=== PATIENT | female | born 1955 | race Caucasian/White ===

== ENCOUNTER → 2016-11-05 | Outpatient (CLI) | payer OTHER ==
[~2016-11-05] MED LIST: ASPI1TAB4 PO; COEN1CAP PO; GLUC500C67 PO; IBUP-103 PO; PARO1TAB27 PO; SIMV20TA2 PO; VSC/5 PO
== END | disposition home or self-care (01) ==
LOC: C.RDSM 11-04 11:45
PROVIDERS: ATTEND Physical Medicine & Rehabilitation Sports Medicine
DX: S42.231D 3-part fracture of surgical neck of right humerus, subsequent encounter for fracture with routine healing (principal); X58.XXXD Exposure to other specified factors, subsequent encounter

== ENCOUNTER → 2016-11-17 | Outpatient (CLI) | payer OTHER | END | disposition home or self-care (01) | LOC: C.RDSM 15:33 | PROVIDERS: ATTEND Physical Medicine & Rehabilitation Sports Medicine | DX: M25.562 Pain in left knee (principal) ==

== ENCOUNTER → 2017-01-01 | Outpatient (CLI) | payer OTHER ==
[2017-01-01 17:35] LABS: BASO % 0.5 %; BASO ABS # 0.02 K/uL (0-0.2); COMPLETE YES; EOS % 2.9 %; HEMATOCRIT 41.8 % (37-47); IG% 0.3 %; LYMPH % 47.1 %; LYMPH ABS # 1.79 K/uL (1.2-3.4); MEAN CELL VOLUME 88.9 fL (80-100); MEAN CORPUSCULAR HGB CONC 33.7 g/dl (32-36); MONO % 9.2 %; PLATELET COUNT 285 K/uL (130-400)
[2017-01-02 05:53] LABS: ESTIMATED AVERAGE GLUCOSE 128 mg/dl; HA1C FLAG Normal (Normal)
== END | disposition home or self-care (01) ==
LOC: C.LABBFT 11:33
PROVIDERS: ATTEND Internal Medicine
DX: D72.819 Decreased white blood cell count, unspecified (principal); R73.01 Impaired fasting glucose

== ENCOUNTER → 2017-02-24 | Outpatient (CLI) | payer OTHER | END | disposition home or self-care (01) | LOC: C.PAPS 13:59 | PROVIDERS: ATTEND Obstetrics & Gynecology | DX: Z01.419 Encounter for gynecological examination (general) (routine) without abnormal findings (principal) ==

== ENCOUNTER → 2017-04-23 | Outpatient (CLI) | payer OTHER ==
--- NOTE | 2017-04-23 20:16 | DIAGNOSTIC IMAGING REPORT ---
LEFT HUMERUS 2 VIEWS CLINICAL HISTORY: Fall with left arm pain. FINDINGS: AP and lateral views of the left humerus are obtained. No prior studies are available for comparison at the time of dictation. The skeletal structures are osteopenic. No left humeral fracture is identified. The shoulder and elbow joints are grossly maintained. Productive degenerative change is seen at the acromioclavicular joint. The overlying soft tissues are within normal limits. The partially imaged left lung parenchyma appears clear. IMPRESSION: There is no radiographic evidence of left humeral fracture. Electronically signed by: Isaac Jo M.D. 04/23/2017 8:14 PM Dictated Date/Time: 04/23/2017 8:13 PM
== END | disposition home or self-care (01) ==
LOC: C.RAD 19:56
PROVIDERS: ATTEND Physician Assistant Medical
DX: M79.602 Pain in left arm (principal); Z91.81 History of falling

== ENCOUNTER → 2017-05-13 | Outpatient (CLI) | payer OTHER ==
[2017-05-13 12:53] LABS: CHOLESTEROL/HDL RATIO 2.6
== END | disposition home or self-care (01) ==
LOC: C.LABBFT 08:50
PROVIDERS: ATTEND Internal Medicine
DX: E78.00 Pure hypercholesterolemia, unspecified (principal)

== ENCOUNTER → 2017-07-09 | Outpatient (CLI) | payer OTHER ==
[2017-07-09 12:42] LABS: URINE APPEARANCE CLEAR (CLEAR); URINE BILIRUBIN NEG (NEG); URINE COLOR YELLOW; URINE EPITHELIAL CELL AUTO >30 /lpf (0-5); URINE NITRITE NEG (NEG); UROBILINOGEN NEG (NEG); ZZUR CULT IF INDIC CLEAN CATCH NO
[2017-07-09 12:47] LABS: MANUAL MICROSCOPIC REQUIRED? NO; REVIEW REQ? NO
[2017-07-09 12:50] LABS: ESTIMATED AVERAGE GLUCOSE 128 mg/dl; HA1C FLAG Normal (Normal)
[2017-07-09 13:00] LABS: BLOOD UREA NITROGEN 20 mg/dl (7-18); BUN/CREATININE RATIO 23.5 (10-20); CALCIUM 9.1 mg/dl (8.5-10.1); CARBON DIOXIDE 25 mmol/L (21-32); CHLORIDE 109 mmol/L (98-107); CREATININE 0.86 mg/dl (0.60-1.20); GLUCOSE 96 mg/dl (70-99); POTASSIUM 3.7 mmol/L (3.5-5.1); SODIUM 141 mmol/L (136-145)
[2017-07-09 13:11] LABS: ALB/GLOB RATIO 1.3 (0.9-2); ALKALINE PHOSPHATASE 65 U/L (45-117); ALT/SGPT 24 U/L (12-78); AST/SGOT 19 U/L (15-37)
[2017-07-09 15:19] LABS: BASO % 0.5 %; BASO ABS # 0.02 K/uL (0-0.2); COMPLETE YES; EOS % 2.6 %; HEMATOCRIT 42.4 % (37-47); IG% 0.2 %; LYMPH % 37.1 %; MEAN CORPUSCULAR HEMOGLOBIN 29.5 pg (25-34); MEAN CORPUSCULAR HGB CONC 32.8 g/dl (32-36); MONO % 9.5 %; NEUT % 50.1 %; PLATELET COUNT 291 K/uL (130-400); RED BLOOD COUNT 4.71 M/uL (4.2-5.4); WHITE BLOOD COUNT 4.31 K/uL (4.8-10.8)
== END | disposition home or self-care (01) ==
LOC: C.LABBFT 09:37
PROVIDERS: ATTEND Internal Medicine
DX: R73.01 Impaired fasting glucose (principal); R53.83 Other fatigue; E78.00 Pure hypercholesterolemia, unspecified

== ENCOUNTER → 2017-09-11 | Outpatient (CLI) | payer OTHER ==
--- NOTE | 2017-09-11 15:38 | MAMMOGRAPHY REPORT ---
BILATERAL DIGITAL SCREENING MAMMOGRAM TOMOSYNTHESIS WITH CAD: 09/11/2017 TECHNIQUE: Breast tomosynthesis in addition to standard 2D mammography was performed. Current study was also evaluated with a Computer Aided Detection (CAD) system. COMPARISON: Comparison is made to exams dated: 09/10/2016 mammogram, 08/30/2015 mammogram, 08/29/2014 mammogram, 08/24/2013 mammogram, 11/30/2012 ultrasound, and 11/30/2012 mammogram - [facility]. BREAST COMPOSITION: The tissue of both breasts is almost entirely fatty. FINDINGS: No suspicious masses, calcifications, or areas of architectural distortion are noted in ei ther breast. There has been no significant interval change compared to prior exams. Scattered bilater al benign-appearing calcifications are not significantly changed. IMPRESSION: ACR BI-RADS CATEGORY 2: BENIGN There is no mammographic evidence of malignancy. A 1 year screening mammogram is recommended. The pa tient will receive written notification of the results. Approximately 10% of breast cancers are not detected with mammography. A negative mammographic report should not delay biopsy if a clinically suggestive mass is present. Genny Dash M.D. ah/:09/11/2017 12:20:40 Jewelry Dipper: Noni AUSTIN(Robi)(M), [facility] letter sent: Normal 1/2 BI-RADS Code: ACR BI-RADS Category 2: Benign
== END | disposition home or self-care (01) ==
LOC: C.MAMM 11:13
PROVIDERS: ATTEND Internal Medicine
DX: Z12.31 Encounter for screening mammogram for malignant neoplasm of breast (principal)

== ENCOUNTER → 2017-12-15 | Outpatient (CLI) | payer OTHER ==
--- NOTE | 2017-12-15 17:34 | DIAGNOSTIC IMAGING REPORT ---
R WRIST MIN 3 VIEWS ROUTINE CLINICAL HISTORY: 62 years-old Female presenting with W19.XXXA [id number] Wrist pain, rightright wrist injury. S/P fa. TECHNIQUE: Frontal, oblique, and lateral views of the right wrist were obtained. COMPARISON: None. FINDINGS: Nondisplaced fracture of the radial styloid, which is intra-articular and disrupts the radiocarpal articulation with the scaphoid. No other fracture. No malalignment. IMPRESSION: Nondisplaced intra-articular fracture of the radial styloid. This is presumably acute based on the history and absence of prior exams. Electronically signed by: Wolf Watts M.D. 12/15/2017 5:32 PM Dictated Date/Time: 12/15/2017 5:30 PM
== END | disposition home or self-care (01) ==
LOC: C.RAD 17:14
PROVIDERS: ATTEND Physician Assistant Medical
DX: M25.531 Pain in right wrist (principal); W19.XXXA Unspecified fall, initial encounter

== ENCOUNTER → 2018-01-11 | Outpatient (CLI) | payer OTHER ==
[2018-01-11 12:28] LABS: BASO % 0.5 %; BASO ABS # 0.02 K/uL (0-0.2); EOS % 2.5 %; HEMATOCRIT 38.7 % (37-47); HEMOGLOBIN 12.8 g/dL (12.0-16.0); IG# 0.01 K/uL (0.00-0.02); LYMPH ABS # 1.71 K/uL (1.2-3.4); MEAN CELL VOLUME 90.6 fL (80-100); MEAN CORPUSCULAR HGB CONC 33.1 g/dl (32-36); MEAN PLATELET VOLUME 9.6 fL (7.4-10.4); MONO % 8.1 %; MONO ABS # 0.33 K/uL (0.11-0.59); NEUT % 46.7 %; PLATELET COUNT 286 K/uL (130-400); RED CELL DISTRIBUTION WIDTH CV 13.4 % (11.5-14.5); RED CELL DISTRIBUTION WIDTH SD 44.3 fL (36.4-46.3); WHITE BLOOD COUNT 4.07 K/uL (4.8-10.8)
[2018-01-11 13:16] LABS: HEMOGLOBIN A1C 6.3 % (4.5-5.6)
== END | disposition home or self-care (01) ==
LOC: C.LABBFT 09:24
PROVIDERS: ATTEND Internal Medicine
DX: R73.01 Impaired fasting glucose (principal); E78.00 Pure hypercholesterolemia, unspecified; D72.819 Decreased white blood cell count, unspecified

== ENCOUNTER 2019-02-25 10:19 | Inpatient (IN) ==
--- NOTE | 2019-01-25 16:08 | PAT Medication Instructions ---
Medication Instructions Date of Service January 25, 2019 Home Medications Medication Instructions Recorded ondansetron 4 mg PO Q6H PRN #12 tab 12/07/18 aspirin-caffeine 500 mg-32.5 mg 1 tab PO DAILY PRN coenzyme Q10 30 mg capsule 30 mg PO BID simvastatin 40 mg tablet 40 mg PO QPM metformin 500 mg tablet 1,000 mg PO BID losartan 50 mg PO QAM meloxicam 15 mg PO QAM omeprazole 20 mg PO QAM ondansetron 4 mg PO Q6H PRN Probiotic 1 dose PO QAM Vitamin D3 1 cap PO QAM multivitamin 1 tab PO BID tolterodine 4 mg PO QPM glucosamine-chondroitin 1 tab PO BID ASK your surgeon for instructions aspirin-caffeine 500 mg-32.5 mg 1 tab PO DAILY PRN meloxicam 15 mg PO QAM STOP taking 2 weeks before surgery (or as soon as possible if surgery is within 2 weeks) coenzyme Q10 30 mg capsule 30 mg PO BID glucosamine-chondroitin 1 tab PO BID DO NOT take the morning of surgery metformin 500 mg tablet 1,000 mg PO BID losartan 50 mg PO QAM Probiotic 1 dose PO QAM Vitamin D3 1 cap PO QAM multivitamin 1 tab PO BID Take morning of surgery With a small sip of water, OTHERWISE NOTHING TO EAT OR DRINK AFTER MIDNIGHT: omeprazole 20 mg PO QAM ondansetron 4 mg PO Q6H PRN (if needed) Take evening before surgery simvastatin 40 mg tablet 40 mg PO QPM metformin 500 mg tablet 1,000 mg PO BID ondansetron 4 mg PO Q6H PRN (if needed) multivitamin 1 tab PO BID tolterodine 4 mg PO QPM Other Notes If you have any questions please call us at [phone] or [phone] or [phone] or [phone]
--- NOTE | 2019-01-26 10:22 | Anesthesiology Consultation ---
Date of Service January 26, 2019 Assessment & Plan (1) Encounter for pre-operative examination: - Check BSG AM DOS Chart Review Chart Review: Acceptable Risk for Surgery and Patient seen in Pre Admission Testing Teaching & Discussion Pre-Anesthesia Teaching/Discussion Notes: Instructed NPO after midnight before surgery,except medications with 15 cc of water. Medication instructions provided according to the PAT guidelines. History Surgery Operation Date: 02/25/19 10:00 Proposed Procedures p Left Total Knee Arthroplasty - Kunal Henderson DO Height/Weight Height: 5 ft 1 in Weight: 88.5 kg Allergies Allergy/AdvReac Type Severity Reaction Status Date / Time amoxicillin AdvReac Mild YEAST Verified 01/20/19 13:26 INFECTION Medications Home Medications Medication Instructions Recorded Confirmed Last Taken aspirin-caffeine 500 mg-32.5 mg 1 tab PO DAILY PRN tab 08/13/18 01/20/19 12/25/18 tablet coenzyme Q10 30 mg capsule 30 mg PO BID 08/13/18 01/20/19 12/28/18 simvastatin 40 mg tablet 40 mg PO QPM 08/13/18 01/20/19 12/28/18 metformin 500 mg tablet 1,000 mg PO BID 08/16/18 01/20/19 12/28/18 losartan 50 mg PO QAM 12/07/18 01/20/19 Unknown meloxicam 15 mg PO QAM 12/07/18 01/20/19 12/28/18 omeprazole 20 mg PO QAM 12/07/18 01/20/19 12/29/18 ondansetron 4 mg PO Q6H PRN #12 tab 12/07/18 01/20/19 12/17/18 Probiotic 1 dose PO QAM 12/16/18 01/20/19 12/28/18 Vitamin D3 1 cap PO QAM 12/16/18 01/20/19 12/28/18 multivitamin 1 tab PO BID 12/16/18 01/20/19 12/28/18 tolterodine 4 mg PO QPM 12/16/18 01/20/19 12/28/18 glucosamine-chondroitin 1 tab PO BID 01/20/19 01/20/19 Unknown Past Medical History Medical History History of hepatitis C DIAGNOSED 2006; S/P TREATMENT X 1 YEAR- REPEAT TESTING HAS UNDETECTABLE VIRAL LOAD Depressive disorder Dyslipidemia GERD (gastroesophageal reflux disease) CONTROLLED Diabetes PREDIABETES- ON METFORMIN Hearing deficit B/L HEARING AIDS History of anxiety Hypertension Obesity Osteoarthritis Spinal stenosis Past Family History Family History Mother Family history of diabetes mellitus Past Surgical History Surgical History History of tonsillectomy History of bilateral oophorectomy History of hysteroscopy History of dilatation and curettage H/O carpal tunnel repair BL History of bilateral tubal ligation History of colonoscopy History of esophagogastroduodenoscopy (EGD) 12/29/18= MAC sedation at [facility] History of tooth extraction Past Anesthesia History No Hx of Anesthesia Complications (EXCEPT POST OP NAUSEA) and No Family Hx of Anesthesia Complications History of PONV Yes Motion Sickness Screening History of Motion Sickness: No Social History Smoking Status: Former smoker Do You Dip or Chew Tobacco: No Smoking End Date: QUIT 15+ YEARS AGO Hx Alcohol Use: No Hx Substance Use: No substance use type: does not use Exercise / Class Metabolic Activity III < 4 Walking/Shop/Light housework Review of Systems Patient denies chest pain, shortness of breath, cough, wheezing, palpitations. Physical Exam Vital Signs VITALS BP 152/83 P 90 TEMP 98.1 SP02 98%RA RESP 18 PHYSICAL Full neck and c-spine range of motion. Full TMJ range of motion. TMD 3 finger breaths Mallampati Score 3 Dentition: missing molars Lungs: clear throughout to auscultation Cardiac: occasional extra beat, regular rate and rhythm, no murmurs noted Spine: normal Carotid arteries: negative bruit Extremities: no edema Small oral opening Testing Electrocardiogram Date: 01/26/19 SR with PSVC's at 83bpm. Chest X-Ray Date: 01/26/19 Findings: + NAD Laboratory Results 01/26/19 10:39 01/26/19 10:39 Blood Type O Positive 01/26/19 10:39 Antibody Screen NEGATIVE 01/26/19 10:39 PT 9.8 Seconds (9.0-12.0) 01/26/19 10:39 INR 1.0 (0.9-1.1) 01/26/19 10:39 APTT 29.2 Seconds (21.0-31.0) 01/26/19 10:39 07/14/18 HGBA1C 6.3%
--- NOTE | 2019-01-26 11:08 | XRay Report ---
XR chest Pre-admission PA/Lat CLINICAL HISTORY: Preoperative evaluation. COMPARISON STUDY: Chest radiograph and chest CT September 04, [id number]. FINDINGS: Lung volumes are normal. There is no pneumothorax or pleural effusion. There is no consolid ation or evidence for pulmonary edema. Cardiomediastinal silhouette is unremarkable. IMPRESSION: No acute cardiopulmonary findings. Electronically signed by: Man Lorenzo M.D. 01/26/2019 11:07 AM
[2019-01-26 12:32] LABS: Basophils # (auto) 0.02 K/uL (0-0.2); Basophils % (auto) 0.5 %; Eosinophils # (auto) 0.06 K/uL (0-0.5); Eosinophils % (auto) 1.5 %; Hematocrit (blood only) 38.4 % (37-47); Immature Granulocytes # (auto) 0.01 K/uL (0.00-0.02); Immature Granulocytes % (auto) 0.2 %; Lymphocytes # (auto) 1.46 K/uL (1.2-3.4); Lymphocytes % (auto) 35.4 %; Mean Corpuscular Hgb Conc 33.9 g/dL (32-36); Mean Corpuscular Volume 88.7 fL (80-100); Mean Platelet Volume 9.9 fL (7.4-10.4); Monocytes # (auto) 0.29 K/uL (0.11-0.59); Neutrophils # (auto) 2.28 K/uL (1.4-6.5); Neutrophils % (auto) 55.4 %; Platelet Count 276 K/uL (130-400); RDW Coefficient of Variation 12.8 % (11.5-14.5); RDW Standard Deviation 41.2 fL (36.4-46.3); Red Blood Count 4.33 M/uL (4.2-5.4); White Blood Count 4.12 K/uL (4.8-10.8)
[2019-01-26 12:47] LABS: Partial Thromboplastin Ratio 1.1; Partial Thromboplastin Time 29.2 Seconds (21.0-31.0); Prothrombin Time 9.8 Seconds (9.0-12.0)
[2019-01-26 12:48] LABS: BUN Creatinine Ratio 37.9 (10-20); Calcium 9.1 mg/dl (8.5-10.1); Creatinine Clr Calc Pharmacy 76.7 ml/min; Est GFR (African American) 98.5; Potassium 4.1 mmol/L (3.5-5.1)
--- NOTE | 2019-02-24 21:14 | History & Physical Report ---
Date of Service February 24, 2019 Assessment & Plan (1) Osteoarthritis of left knee: Is with a left total knee arthroplasty. Postoperatively she will be started on aspirin for DVT prophylaxis. She will be kept overnight in the hospital for postop medical management. She plans to use energy physical therapy upon discharge. Present on Admission?: Yes History of Present Illness Chief Complaint: Primary osteoarthritis of the left knee Primary Care Provider: Víctor Macias MD Isabel is a pleasant 63-year-old female who is been dealing with chronic increasing left knee pain. X-rays and clinical examination were diagnostic for primary osteoarthritis of the left knee. After failing conservative treatment, she elected to proceed with a left total knee arthroplasty Allergies Allergy/AdvReac Type Severity Reaction Status Date / Time amoxicillin AdvReac Mild YEAST Verified 01/20/19 13:26 INFECTION Home Medications Home Medications Medication Instructions Recorded Confirmed Type aspirin-caffeine 500 mg-32.5 mg 1 tab PO DAILY PRN tab 08/13/18 01/20/19 History tablet coenzyme Q10 30 mg capsule 30 mg PO BID 08/13/18 01/20/19 History simvastatin 40 mg tablet 40 mg PO QPM 08/13/18 01/20/19 History metformin 500 mg tablet 1,000 mg PO BID 08/16/18 01/20/19 History losartan 50 mg PO QAM 12/07/18 01/20/19 History meloxicam 15 mg PO QAM 12/07/18 01/20/19 History omeprazole 20 mg PO QAM 12/07/18 01/20/19 History ondansetron 4 mg PO Q6H PRN #12 tab 12/07/18 01/20/19 Rx Probiotic 1 dose PO QAM 12/16/18 01/20/19 History Vitamin D3 1 cap PO QAM 12/16/18 01/20/19 History multivitamin 1 tab PO BID 12/16/18 01/20/19 History tolterodine 4 mg PO QPM 12/16/18 01/20/19 History glucosamine-chondroitin 1 tab PO BID 01/20/19 01/20/19 History Past Med/Surg History Medical History History of hepatitis C DIAGNOSED 2006; S/P TREATMENT X 1 YEAR- REPEAT TESTING HAS UNDETECTABLE VIRAL LOAD Depressive disorder Dyslipidemia GERD (gastroesophageal reflux disease) CONTROLLED Diabetes PREDIABETES- ON METFORMIN Hearing deficit B/L HEARING AIDS History of anxiety Hypertension Obesity Osteoarthritis Spinal stenosis Surgical History History of tonsillectomy History of bilateral oophorectomy History of hysteroscopy History of dilatation and curettage H/O carpal tunnel repair BL History of bilateral tubal ligation History of colonoscopy History of esophagogastroduodenoscopy (EGD) 12/29/18= MAC sedation at [facility] History of tooth extraction Family History Mother Family history of diabetes mellitus Social History Preferred Language: Spanish Communication Ability: Effective Beliefs That Will Affect Care: None Current Living Situation: Spouse Current Living Situation Comment: DAUGHTER LIVES WITH PT Feels Safe at Home: Yes Smoking Status: Former smoker Second Hand Exposure: Yes (MANY YEARS AGO) Hx Alcohol Use: No Hx Substance Use: No Review of Systems All systems reviewed & are unremarkable except as noted in HPI & below Physical Exam Constitutional: WD/WN, vitals as above Eyes: PERRL, conjunctivae normal, anicteric sclerae ENMT: external ear and nose normal, oropharynx normal Neck: trachea midline, no thyromegaly Respiratory: normal respiratory effort Cardiovascular: RRR, no murmur, no edema Gastrointestinal (Abdomen): normal bowel sounds, soft, nontender, no hepatosplenomegaly Musculoskeletal: On physical examination of the left knee there is a trace effusion. There is near full range of motion and no evidence of instability. There is significant tenderness palpation along the medial and lateral joint lines and over the distal femoral condyles. Psychiatric: A+Ox3, euthymic affect Results & Data Diagnostic Findings Radiographs of the left knee demonstrate advanced osteoarthritis with joint space narrowing osteophyte formation and [id number]-[id number] articulation.
[~2019-02-25 10:19] MED LIST changes: +ACETAMINOPHEN 500 MG TAB PO SCH; -ASPI1TAB4 PO; +BUPIVACAINE 0.5 % 5 MG/1 ML PF 10ML VIAL ONE; +CEFAZOLIN 2000MG 2,000 MG/15 ML SYR IV SCH; -COEN1CAP PO; +FAMOTIDINE 20 MG TAB PO SCH; +GABAPENTIN 300 MG PO SCH; -GLUC500C67 PO; -IBUP-103 PO; +LR 500ML BOLUS, THEN 15ML/HR IV SCH; +LR 60ML/HR IV SCH; -PARO1TAB27 PO; +ROPIVACAINE 0.5% 5 MG/ML 30 ML VIAL ONE; +ROPIVACAINE 0.5% HCL/PF 150 MG, BUPIVACAINE 0.5% MPF 30 ML, EPINEPHrine 30MG/30ML (OR U... INFIL SCH; -SIMV20TA2 PO; +TRANEXAMIC ACID 1,000 MG **IV Intra-op IV SCH; +TRANEXAMIC ACID 1,000 MG **IV Pre-op IV SCH; -VSC/5 PO
[2019-02-25] MEDS ORDERED: fentaNYL citrate 100 MCG/2 ML VIAL ONE (11:29)
[2019-02-25] MEDS ORDERED: MIDAZOLAM HCL 1 MG/ML 2ML VIAL ONE (11:29)
--- NOTE | 2019-02-25 12:42 | History & Physical Bridge Note ---
Date of Service February 25, 2019 History & Physical Bridge Note I have examined the patient, reviewed the History & Physical and in the interval since the performance of the History & Physical I have noted the following changes of clinical significance: no changes noted
[2019-02-25] MEDS ORDERED: ePHEDrine sulfate 50 MG/ML AMP IV PRN (13:10)
[2019-02-25] MEDS ORDERED: ATROPINE SULFATE 0.1 MG/ML 10ML SYR IV PRN (13:10)
[2019-02-25] MEDS ORDERED: ONDANSETRON INJ 2 MG/ML 2 ML VIAL IV PRN ×2 (13:10→17:29)
[2019-02-25] MEDS ORDERED: fentaNYL citrate 100 MCG/2 ML VIAL IV PRN (13:10)
[2019-02-25] MEDS ORDERED: ORTHO JOINT ANESTHETIC ONE (13:25)
[2019-02-25] MEDS ORDERED: POVIDONE-IODINE OP SOLN 30 ML BTL ONE (13:25)
[2019-02-25] MEDS ORDERED: BACITRACIN INJ 50,000 UNIT VIAL ONE (14:21)
[2019-02-25] MEDS ORDERED: LIDOCAINE HCL 2% 2 ML VIAL/AMP(20MG/ML) INFIL ONE (14:49)
[2019-02-25] MEDS ORDERED: PROPOFOL IV EMULSION 10 MG/ML 20 ML VIAL IV ONE (14:49)
--- NOTE | 2019-02-25 15:58 | Operative Report ---
Post Operative Report Pre & Post Diagnosis Operation Date: 02/25/19 13:00 Pre-Op Diagnosis: Left Knee Degenerative Joint Disease Post-Op Diagnosis: Left Knee Degenerative Joint Disease Procedure Operation Date: 02/25/19 13:00 Actual Procedures p Left Total Knee Arthroplasty(Left) - Kunal Henderson DO Surgeon Kunal Henderson DO Leather Goods Assembler Kunal Sierra PAC Estimated Blood Loss 10 Findings Consistent with Post-Op Diagnosis Specimens Left femoral and tibial bone Complications none Disposition Disposition: Recovery Room Indications Isabel is a pleasant 63-year-old female who is been dealing with chronic increasing left knee pain. X-rays and clinical examination were diagnostic for primary osteoarthritis of the left knee. After failing conservative treatment, she elected to proceed with a left total knee arthroplasty. Description of Procedure Implants used: I used a [employer] Vanguard total knee arthroplasty system with a size 65 femur, 67 tibia, 31 patella, and a size 10 PS polyethylene bearing. All components were cemented in place with Palacos G cement. The patient arrived [facility] for the above procedure. There were seen in the preoperative holding area and the operative extremity was identified and signed. There were given a preoperative antibiotic, a spinal anesthetic and an adductor nerve block. There were taken back to the operating room and laid on the table in supine position. There were given basic sedation. The operative knee was then prepped and draped in sterile fashion. A timeout was done, and the patient and the operative extremity was properly identified. A midline incision was made directly over the patella. Dissection was taken down to the extensor mechanism. A subvastus arthrotomy was used. The medial retinaculum was released and the fat pad was mostly left intact. The knee was flexed and the ACL, PCL, and meniscus were removed. A drill was sent down the center of the femoral canal followed by an intramedullary yris. Off that yris a distal femoral cutting block was placed. 9 mm was resected off the distal femur at 5 of valgus. A posterior referencing AP sizing guide was then placed on the distal femur. The femur measured to be a size 65. 2 drill holes were placed in 3 of external rotation. A 4-in-1 cutting block was then impacted into place. Anterior posterior and chamfer cuts were then made. The posterior stabilizing box guide was then impacted into place and the box was resected for the posterior stabilizing component. The proximal tibia was then exposed. A drill was sent down the center of the tibial canal followed by an intramedullary yris. Off that yris a proximal tibial resection guide was placed. The proximal tibia was then resected. The tibia measured to be a size 67. The tibial plate was then placed in the appropriate rotation and the tibia was punched. The posterior aspect of the knee was then opened up and any additional meniscus fragments and osteophytes were removed. Trial components were then placed. I used a size 10 PS polyethylene insert. The knee was brought through a full range of motion and felt to be stable. The patella was then everted and 8 mm was resected off the posterior aspect of the patella. The patella measured to be a size 31. 3 peg holes were then drilled. A trial patella was placed. The knee was once again brought through a full range of motion and felt to be stable. Trial components were then removed. The surrounding soft tissues were injected with 100 cc of an orthopedic pain control cocktail. All components were then cemented into place with Palacos G cement. The final polyethylene insert was then snapped into place and the anterior bar was locked. Once cement was dry the tourniquet was deflated. Hemostasis was obtained. A dilute betadyne lavage was then done for 3 minutes. The joint was then irrigated with normal saline solution. The subvastus arthrotomy was then closed with #1 Vicryl suture. The skin was closed with 2-0 Vicryl, 3-0V lock suture, and memo. A soft compressive dressing was placed. The patient was then transferred to a hospital bed and taken to the postanesthesia care unit in stable condition. They tolerated the procedure well. I attest to the content of the Intraoperative Record and any orders documented therein. Any exceptions are noted below.
--- NOTE | 2019-02-25 16:50 | XRay Report ---
XR knee LT 2V routine CLINICAL HISTORY: Surgical Post Op postoperative evaluation COMPARISON: None. DISCUSSION: Anatomic alignment post total left knee arthroplasty. Good contact between prosthetic and underlying bone. Expected postoperative soft tissue change IMPRESSION: Anatomic alignment post total left knee arthroplasty. The above report was generated using voice recognition software. It may contain grammatical, syntax or spelling errors. Electronically signed by: Dez Pantoja M.D. 02/25/2019 4:49 PM
--- NOTE | 2019-02-25 17:21 | Anesthesiology Progress Note ---
Date of Service February 25, 2019 Anesthesia Post Procedure Vital Signs Vital Signs: Temp Pulse Pulse Resp BP Pulse Ox 02/25/19 17:10 36.6 C 73 16 125/67 96 02/25/19 17:00 73 16 133/54 L 96 02/25/19 16:50 75 16 118/62 99 02/25/19 16:40 36.5 C 77 16 120/55 L 99 02/25/19 16:30 36.5 C 79 16 113/57 L 99 02/25/19 16:21 36.5 C 87 16 131/76 99 02/25/19 10:44 36.9 C 82 18 161/78 H 98 Pain Intensity Left Knee: Pain Intensity: 4 Notes Mental Status: alert / awake / arousable Patient Amnestic to Procedure: Yes Nausea / Vomiting: adequately controlled Pain: adequately controlled Airway Patency, RR, SpO2: stable & adequate BP & HR: stable & adequate Hydration State: stable & adequate Neuraxial Anesthesia: was administered and sensory block is resolving Anesthetic Complications: no major complications apparent
[2019-02-25] MEDS ORDERED: ONDANSETRON 4 MG OD TAB PO PRN (17:29)
[2019-02-25] MEDS ORDERED: BISACODYL 10 MG SUPP PR PRN (17:29)
[2019-02-25] MEDS ORDERED: MAGNESIUM HYDROXIDE SUSP 30 ML UDC PO PRN (17:29)
[2019-02-25] MEDS ORDERED: SODIUM CHLORIDE 0.9% 1000ML 1,000 ML IV SCH (17:29)
[2019-02-25] MEDS ORDERED: HYDROmorphone INJ 0.5 MG/0.5 ML SYR IV PRN (17:29)
[2019-02-25] MEDS ORDERED: METOCLOPRAMIDE HCL INJ 5 MG/ML 2 ML VIAL IV PRN (17:29)
[2019-02-25] MEDS ORDERED: NALOXONE HCL 0.4 MG/1 ML VIAL/CARP IV PRN (17:29)
[2019-02-25] MEDS ORDERED: PHARMACY GLYCEMIC MGMT CONSULT PRN (17:53)
[2019-02-25] MEDS: KETOROLAC TROMETHAMINE 15 MG/ML VIAL IV SCH (19:05)
[2019-02-25] MEDS: OXYCODONE HCL IR 5 MG TAB (IMMEDIATE RELEASE) PO PRN (20:30)
[2019-02-25] MEDS ORDERED: METFORMIN HCL 500 MG TAB PO SCH (21:00)
[2019-02-25] MEDS ORDERED: COENZYME Q10 30 MG PO SCH (21:00)
[2019-02-25] MEDS: TOLTERODINE TARTRATE LA 4 MG CAPCR PO SCH (21:33)
[2019-02-25] MEDS: ASPIRIN 81 MG ECTAB PO SCH (21:33)
[2019-02-25] MEDS: SIMVASTATIN 40 MG TAB PO SCH (21:33)
[2019-02-25] MEDS: SENNA 8.6 MG TAB PO SCH (21:33)
[2019-02-25] MEDS: DOCUSATE SODIUM 100 MG CAP PO SCH (21:35)
[2019-02-25] MEDS: INSULIN ASPART 100 UNITS/ML 3 ML PEN SC SCH (21:36)
[2019-02-25] MEDS: CEFAZOLIN 2000MG 2,000 MG/15 ML SYR IV SCH (22:05)
[2019-02-25] MEDS: ACETAMINOPHEN 500 MG TAB PO SCH (22:06)
[2019-02-26] MEDS: KETOROLAC TROMETHAMINE 15 MG/ML VIAL IV SCH ×5 (00:25→23:02)
[2019-02-26] MEDS: CEFAZOLIN 2000MG 2,000 MG/15 ML SYR IV SCH (06:14)
[2019-02-26] MEDS: ACETAMINOPHEN 500 MG TAB PO SCH ×3 (06:14→21:10)
[2019-02-26 06:17] LABS: Hemoglobin 10.5 g/dL (12.0-16.0); Mean Corpuscular Hgb Conc 32.8 g/dL (32-36); Mean Corpuscular Volume 87.4 fL (80-100); Mean Platelet Volume 9.6 fL (7.4-10.4); Platelet Count 231 K/uL (130-400); RDW Coefficient of Variation 13.2 % (11.5-14.5); RDW Standard Deviation 42.3 fL (36.4-46.3); Red Blood Count 3.66 M/uL (4.2-5.4); White Blood Count 7.82 K/uL (4.8-10.8)
[2019-02-26 06:48] LABS: BUN Creatinine Ratio 19.2 (10-20); Calcium 8.3 mg/dl (8.5-10.1); Creatinine Clr Calc Pharmacy 58.4 ml/min; Est GFR (African American) 69.3; Est GFR (Non-African American) 59.8; Potassium 4.3 mmol/L (3.5-5.1)
--- NOTE | 2019-02-26 08:35 | Orthopedic Progress Note ---
Date of Service February 26, 2019 Assessment & Plan (1) Osteoarthritis of left knee: Overall she is doing very well. She is not having much pain in the left knee. She is already been up and ambulating to the bathroom. She is on aspirin for DVT prophylaxis. She will be seen by physical therapy today for ambulation. We will make sure her pain is well controlled. I plan to discharge her to home tomorrow morning. Present on Admission?: Yes Suzi Hall was seen and examined at bedside this morning. Overall she is doing very well. She is not having much pain in the left knee. She is happy with her pro shirin so far and has no complaints. Physical Exam Musculoskeletal: On physical examination of the left knee, the dressing is clean and dry. Her leg lengths are equal. She is active dorsi flexion and plantarflexion of her left ankle. She is already able to easily do a straight leg raise. Results & Data Vital Signs (Past 12 Hours) Vital Signs Temp Pulse Resp BP Pulse Ox 02/26/19 07:51 36.5 C 88 16 125/76 94 02/26/19 03:55 36.6 C 96 H 18 125/78 96 02/25/19 22:50 36.6 C 87 16 128/74 95 02/25/19 21:14 36.4 C L 72 17 150/96 H 96 Laboratory Results H & H 01/26/19 02/26/19 Range/Units 10:39 05:30 Hgb 13.0 10.5 L (12.0-16.0) g/dL Hct 38.4 32.0 L (37-47) % Coagulation 01/26/19 Range/Units 10:39 INR 1.0 (0.9-1.1) Diagnostic Findings Postoperative x-rays of the left knee show the prosthesis to be in anatomic alignment without any evidence of fracture, dislocation, or loosening.
[2019-02-26] MEDS: PANTOprazole 40 MG TAB PO SCH (08:45)
[2019-02-26] MEDS: LOSARTAN POTASSIUM 50 MG TAB PO SCH (08:45)
[2019-02-26] MEDS: MULTIVITAMIN TAB PO SCH (08:45)
[2019-02-26] MEDS: ASPIRIN 81 MG ECTAB PO SCH ×2 (08:45→20:48)
[2019-02-26] MEDS: INSULIN ASPART 100 UNITS/ML 3 ML PEN SC SCH ×4 (08:46→20:49)
[2019-02-26] MEDS: DOCUSATE SODIUM 100 MG CAP PO SCH ×2 (08:51→20:48)
[2019-02-26] MEDS: OXYCODONE HCL IR 5 MG TAB (IMMEDIATE RELEASE) PO PRN ×3 (08:51→21:06)
[2019-02-26] MEDS ORDERED: PNEUMOCOCCAL ADMINISTRATION CHARGE ONE (13:00)
[2019-02-26] MEDS ORDERED: PNEUMOCOCCAL POLYSACCHARIDES 25 MCG/0.5 ML VIAL/SYR IM ONE (13:00)
--- NOTE | 2019-02-26 13:32 | Pharmacy Report ---
Pharmacy Glycemic Short Note 2 - Date of Service February 26, 2019 - Glycemic Short BSG Results (Last 24 hours): 02/25/19 02/25/19 02/25/19 16:24 17:40 20:27 Glucose POC Glucose 88 88 116 H 02/26/19 02/26/19 02/26/19 05:30 08:13 12:01 Glucose 127 H POC Glucose 124 H 119 H OUTPATIENT ANTIDIABETIC REGIMEN: * metformin 1000 mg PO BID * A1c 6.3% 01/27/19 ASSESSMENT: * Isabel is a 63 yr old T2DM female POD #1 s/p TKA * She was started on Novolog ACHS with correction factor and carb ratio last evening. * She has required minimal insulin thus far (only 3 units of novolog) and no basal insulin. * Since patient is tolerating an oral diet and scr is at baseline, I will resume home dose of metformin this evening. I will also discontinue carb coverage. PLAN FOR INPATIENT GLYCEMIC CONTROL: * Resume metformin 1000 mg PO BID with meals * Basal insulin * none * Bolus insulin * NovoLog per scale ACHS or Q6hrs while NPO * Goal Range: Low 110 mg/dL - High 140 mg/dL * Correction Factor: 25 mg/dL/unit PLAN FOR DISCHARGE: * A1c at goal. Continue home regimen of metformin on discharge.
[2019-02-26] MEDS: METFORMIN HCL 500 MG TAB PO SCH (17:54)
[2019-02-26] MEDS: TOLTERODINE TARTRATE LA 4 MG CAPCR PO SCH (20:48)
[2019-02-26] MEDS: SIMVASTATIN 40 MG TAB PO SCH (20:48)
[2019-02-26] MEDS: SENNA 8.6 MG TAB PO SCH (20:48)
[2019-02-27] MEDS: OXYCODONE HCL IR 5 MG TAB (IMMEDIATE RELEASE) PO PRN ×3 (03:30→11:52)
[2019-02-27] MEDS: ACETAMINOPHEN 500 MG TAB PO SCH (06:13)
[2019-02-27] MEDS: KETOROLAC TROMETHAMINE 15 MG/ML VIAL IV SCH (06:13)
[2019-02-27] MEDS: DOCUSATE SODIUM 100 MG CAP PO SCH (07:50)
[2019-02-27] MEDS: LOSARTAN POTASSIUM 50 MG TAB PO SCH (07:51)
[2019-02-27] MEDS: METFORMIN HCL 500 MG TAB PO SCH (07:52)
[2019-02-27] MEDS: ASPIRIN 81 MG ECTAB PO SCH (07:52)
[2019-02-27] MEDS: MULTIVITAMIN TAB PO SCH (07:52)
[2019-02-27] MEDS: PANTOprazole 40 MG TAB PO SCH (07:52)
[2019-02-27] MEDS: INSULIN ASPART 100 UNITS/ML 3 ML PEN SC SCH (08:09)
--- NOTE | 2019-02-27 09:39 | Orthopedic Progress Note ---
Date of Service February 27, 2019 Assessment & Plan (1) Osteoarthritis of left knee: Overall she is doing very well. The oxycodone is helping with her knee pain. She is on aspirin for DVT prophylaxis. She will be seen by physical therapy again this morning and then can be discharged home. She will follow-up with orthopedics in 2 weeks. Present on Admission?: Yes Subjective Isabel was seen and examined at bedside this morning. Overall she is doing fairly well. She was having some pain last night which is to be expected. She was able to ambulate well with physical therapy and do stairs. She is ready to go home today. She has no complaints. Physical Exam Musculoskeletal: On physical examination of the left knee, the dressing has been changed. There is a little bit of bleeding at the very inferior aspect of the wound. The KEV hose stockings in place. She is neurovascular intact. Results & Data Vital Signs (Past 12 Hours) Vital Signs Temp Pulse Resp BP Pulse Ox 02/27/19 07:03 36.5 C 75 18 113/72 95 02/26/19 22:49 36.8 C 78 16 104/69 98
--- NOTE | 2019-02-27 09:41 | Discharge Summary ---
Date of Service February 27, 2019 Admission HPI Per Admitting Provider Isabel is a pleasant 63-year-old female who is been dealing with chronic increasing left knee pain. X-rays and clinical examination were diagnostic for primary osteoarthritis of the left knee. After failing conservative treatment, she elected to proceed with a left total knee arthroplasty Specialty Data Orthopedic H & H 01/26/19 02/26/19 Range/Units 10:39 05:30 Hgb 13.0 10.5 L (12.0-16.0) g/dL Hct 38.4 32.0 L (37-47) % Coagulation 01/26/19 Range/Units 10:39 INR 1.0 (0.9-1.1) Discharge Data Consultations 02/25/19 17:29 Consult Case Management - Discharge Planning Routine Procedures Performed Operation Date: 02/25/19 13:00 Actual Procedures p Left Total Knee Arthroplasty(Left) - Kunal Henderson DO Hospital Course (1) Osteoarthritis of left knee: On February 25, 2019 Isabel arrived at [facility] and underwent a left total knee arthroplasty without complication. She had a spinal anesthetic and a left adductor nerve block. Postoperatively she was started on aspirin for DVT prophylaxis and discharged to general orthopedic floors. On postop day #1 her H&H was stable and her pain was well controlled. She was able to ambulate very well with physical therapy. On postop day #2 the dressing was changed. She had some pain overnight but that was controlled with the oxycodone. She dissipated well once again with physical therapy. She was then discharged to home with home physical therapy. She will follow-up with orthopedics in 2 weeks. Discharge Instructions Home Medications Medication Instructions Recorded Confirmed aspirin-caffeine 500 mg-32.5 mg 1 tab PO DAILY PRN tab 08/13/18 02/25/19 tablet coenzyme Q10 30 mg capsule 30 mg PO BID 08/13/18 02/25/19 simvastatin 40 mg tablet 40 mg PO QPM 08/13/18 02/25/19 metformin 500 mg tablet 1,000 mg PO BID 08/16/18 02/25/19 losartan 100 mg PO QAM 12/07/18 02/25/19 omeprazole 20 mg PO QAM 12/07/18 02/25/19 Probiotic 1 dose PO QAM 12/16/18 02/25/19 Vitamin D3 1 cap PO QAM 12/16/18 02/25/19 multivitamin 1 tab PO BID 12/16/18 02/25/19 tolterodine 4 mg PO QPM 12/16/18 02/25/19 glucosamine-chondroitin 1 tab PO BID 01/20/19 02/25/19 Previous Rx's Medication Instructions Recorded ondansetron 4 mg PO Q6H PRN #12 tab 12/07/18 aspirin [Ecotrin Low Strength] 81 mg PO BID #84 tab 02/27/19 oxycodone 5 - 10 mg PO Q4H PRN #40 tab 02/27/19
--- OUTSIDE RECORDS SUMMARY | 2019-02-28 22:07 | External Medical Summary | Continuity of Care Document ---
:1955 Author Name Jac Barillas Address Unavailable Unavailable , Care Team Providers Name Role Phone Anita Mcintosh PA-C Unavailable [email or web address] Amelia Damon PA-C Unavailable [email or web address] Radha OLVERA Unavailable [email or web address] Micaela Macias M.D.. Unavailable [email or web address] Micaela MACIAS M.D. Unavailable Unavailable Black RELAY WORKER Unavailable [email or web address] Solitario Salazar M.D. Unavailable [email or web address] Anand GAVIN Unavailable Unavailable VIOLA, Nicci Unavailable Unavailable SAMIR, L Unavailable Unavailable Unavailable Unavailable Unavailable Problems Synovitis Of The Sternoclavicular Joint (727.09) Neck pain (723.1) (M54.2) Pain in foot (729.5) (M79.673) Abdominal cramping (789.00) (R10.9) Cellulitis (682.9) (L03.90) Joint pain, knee (719.46) (M25.569) Rash (782.1) (R21) Abdominal wall abscess (682.2) (L02.211) Osteoarthritis of hip (715.95) (M16.9) Prolapse of vaginal cates (618.00) (N81.10) Abscess of groin (682.2) (L02.214) Open wound of buttock (877.0) (S31.809A) 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) External hemorrhoids (455.3) (K64.4) Clostridium difficile colitis (008.45) (A04.72) Vulvitis (616.10) (N76.2) Pelvic pain (R10.2) Menopausal symptoms (627.2) (N95.1) Medical condition not demonstrated (V65.5) (Z71.1) Skin tag (701.9) (L91.8) Microscopic hematuria (599.72) (R31.29) Need for prophylactic vaccination against viral disease (V04 .89) (Z23) Abnormal finding on mammography (793.80) (R92.8) Abdominal pain, RLQ (right lower quadrant) (789.03) (R10.31) Leg cramps (729.82) (R25.2) Hepatitis C virus (070.70) (B19.20) Lower back pain (724.2) (M54.5) Chest pain (786.50) (R07.9) Intertrigo (695.89) (L30.4) Varicose veins (454.9) (I83.90) Tinea corporis (110.5) (B35.4) Acute upper respiratory infection (465.9) (J06.9) Skin disorder (709.9) (L98.9) Overactive bladder (596.51) (N32.81) Humerus fracture (812.20) (S42.309A) Anxiety (300.00) (F41.9) Diarrhea (787.91) (R19.7) Arthralgia of multiple sites (719.49) (M25.50) Fatigue (780.79) (R53.83) Tick bite (919.4) (W57.XXXA) Encounter for screening for malignant neoplasm of colon (V76 .51) (Z12.11) Arm pain (729.5) (M79.603) Muscle spasm (728.85) (M62.838) Wrist pain, right (719.43) (M25.531) Fall (E888.9) (W19.XXXA) Urge incontinence of urine (788.31) (N39.41) Wrist fracture, right (814.00) (S62.101A) Hearing loss (389.9) (H91.90) Encounter for routine gynecological examination (V72.31) (Z0 1.419) Visit for routine building manager exam (V72.31) (Z01.419) Arthritis (716.90) (M19.90) Need for pneumococcal vaccination (V03.82) (Z23) Need for influenza vaccination (V04.81) (Z23) Dermatitis (692.9) (L30.9) Acute sinusitis (461.9) (J01.90) Candidal intertrigo (112.3) (B37.2) Cystocele, midline (618.01) (N81.11) Urinary urgency (788.63) (R39.15) Abdominal discomfort, epigastric (789.06) (R10.13) Dysphagia (787.20) (R13.10) Obesity (278.00) (E66.9) Left ear pain (388.70) (H92.02) Sensorineural hearing loss (SNHL) of both ears (389.18) (H90 .3) Otalgia of right ear (388.70) (H92.01) Gastroesophageal reflux disease (530.81) (K21.9) Impaired fasting glucose (790.21) (R73.01) Hypercholesterolemia (272.0) (E78.00) Osteoarthritis of knee (715.36) (M17.10) Vitamin D deficiency (268.9) (E55.9) Leukopenia (288.50) (D72.819) UTI (urinary tract infection) (599.0) (N39.0) Allergic rhinitis (477.9) (J30.9) Cerumen impaction (380.4) (H61.20) Hypertension (401.9) (I10) Carotid artery stenosis (433.10) (I65.29) Functional Status Hearing loss Allergies and Adverse Reactions No Known Drug Allergies (Allergy) Medications Fluticasone Propionate 50 MCG/ACT Nasal Suspension; 2 sprays each nostril daily Nargis Macias Start: 31-Jan-2019 Quantity: 1 16 GM Bottle Refills: 5 Simvastatin 40 MG Oral Tablet; TAKE 1 TABLET AT BEDTIM E WADE Damon Start: 18-Oct-2014 Quantity: 90 Refills: 3 Azelastine HCl - 0.1 % Nasal Solution; i nstill 2 sprays into each nostril twice a day WADE Garcia Start: 09-Feb-2019 Quantity: 1 30 ML Bottle Refills: 11 Tylenol 325 MG Oral Tablet; TAKE 1 TABLET Daily PRN Start: 02-Jun-2012 Refills: 0 Clotrimazole-Betamethasone 1-0.05 % Exte rnal Cream; APPLY AND RUB IN A THIN FILM TO AFFECTED AREA(S) TWICE DAILY (MORNING AND NIGHT) WADE Damon Start: 30-Jul-2017 Quantity: 45 Refills: 3 Calcium TABS Refills: 0 metFORMIN HCl ER 500 MG Oral Tablet Exte nded Release 24 Hour; TAKE 2 TABLET Twice daily WADE Damon Start: 18-Jan-2018 Quantity: 360 Refills: 3 traMADol HCl TABS Refills: 0 Zofran 4 MG Oral Tablet Refills: 0 Triamcinolone Acetonide 0.1 % External C ream; APPLY A THIN LAYER TO AFFECTED AREA(S) TWICE DAILY. Nargis Macias Start: 05-Jan-2017 Quantity: 30 Refills: 1 Nystop 651006 UNIT/GM External Powder; a pply to affected area twice a day if needed WADE Mcintosh Start: 11-Dec-2014 Quantity: 15 Refills: 3 Vitamin D3 2000 UNIT Oral Capsule; TAKE 2 CAPSULE Gurvinder y Nargis Macias Refills: 0 Tolterodine Tartrate ER 4 MG Oral Capsul e Extended Release 24 Hour; Take 1 tablet daily WADE Damon Start: 06-Jan-2018 Quantity: 90 Refills: 3 Losartan Potassium 100 MG Oral Tablet; TAKE 1 TABLET O NCE DAILY. Nargis Macias Start: 21-Jul-2018 Quantity: 90 Refills: 3 Omeprazole 20 MG Oral Capsule Delayed Release; TAKE 1 CAPSULE Daily EMILY Mcintosh Quantity: 90 Refills: 3 ProAir HFA 108 (90 Base) MCG/ACT Inhalat ion Aerosol Solution; INHALE 2 PUFFS EVERY 4 HOURS NEEDED FOR COUGH AND WHEEZE. WADE Mcintosh Start: 30-Sep-2018 Quantity: 1 8.5 GM Inhaler Refills: 2 Desonide 0.05 % External Ointment; APPLY SPARINGLY TO AFFECTED AREA(S) TWICE DAILY WADE Damon Start: 09-Aug-2018 Quantity: 1 15 GM Tube Refills: 5 Procedures Vitamin D, 25-Hydroxy Date: 31-Jan-2019 Comp Metabolic Panel Date: 31-Jan-2019 Hemoglobin A1C Date: 31-Jan-2019 CBC With DIFF Date: 31-Jan-2019 CT Angio Neck W+W/O Date: 28-Feb-2019 History of Dilation And Curettage Status : Completed History of Hysteroscopy Status: Complete d History of Tonsillectomy With Adenoidectomy Status: Completed History of Oophorectomy - Unilateral (Removal Of Status: Completed One Ovary) History of Incision And Drainage Of Skin Abscess Status: Completed Abdomen Need for prophylactic vaccination against viral disease History of Cervical Surgery (Umbrella Cutter) Status : Completed Immunizations Tdap (Adacel) On: May-2007 Influenza On: Jul-2011 Influenza On: 23-Aug-2013 14:56 Lot #: [id number], SANOFI PASTEUR Zostavax 13101 UNT/0.65ML Subcutaneous Solution Reconstitute d On: 04-Jan-2014 Fluvirin Intramuscular Injectable On: 31-Jul-2014 Influenza On: 24-Aug-2015 Influenza On: 2016 Fluzone Quadrivalent 0.5 ML Intramuscular Suspension On: Tdap (Adacel) On: 18-Jan-2018 14:30 Lot #: [id number], SANOFI PASTEUR Prevnar 13 Intramuscular Suspension On: 21-Jul-2018 14:34 Lot #: [id number], PFIZER U.S. Fluzone High-Dose 0.5 ML Intramuscular Suspension Pref illed Syringe On: 21-Jul-2018 14:35 Lot #: [id number], SANOFI PASTEUR Family History Unknown Family Member Family history of Family Health Status Of Status: Active Comments: Family History Mother - Family history of Family Health Status Of Status: Active Comments: Family History Father - Brother Family history of Pure Hypercholesterolemia Status: Active Mother Family history of diabetes mellitus (V18.0) (Z83.3) Status: Active Family history of cardiac disorder (V17.49) (Z82.49) Status: Active Family history of hypertension (V17.49) (Z82.49) Status: Act mariella Family history of kidney stones (V18.69) (Z84.1) Status: Act mariella Family history of malignant neoplasm of thyroid (V16.8) (Z80 .8) Status: Active Family history of malignant neoplasm (V16.9) (Z80.9) Status: Active Father Family history of cardiac disorder (V17.49) (Z82.49) Status: Active Family history of hypertension (V17.49) (Z82.49) Status: Act mariella Family history of cerebrovascular accident (CVA) (V17.1) (Z8 2.3) Status: Active Plan of Treatment Planned Encounters Appointment; Tamia Damon PA-C Start: 03-Aug-2019 14 :00 Request Planned Observations Planned Goals not documented Results Urine rflx Micros+Cult if Laboratory: [facility] [address] [place] [address] tel: 31-Jan-2019 10:03 Urine Color Yellow Urine Appearance Clear Range: Clear Urine Specific [place] 1.023 Range: 1.0 00-1.030 Urine Ph 5.5 Range: 4.5-7.5 Urine Protein(Dipstick) Negative Range: Negative Urine Glucose(Dipstick) Negative Range: Negative Urine Ketones Negative Range: Negative Urine Bilirubin Negative Range: Negativ e URINE BLOOD HGB Negative Range: Negativ e Urobilinogen Negative Range: Negative Nitrite Urine Positive (Abnormal) Range: Negative Urine Leukocyte Esterase Trace Range: N egative (Abnormal) Urine Rbc Auto 0-4 {/hpf} Range: 0-4 /h pf Urine Wbc Auto 5-10 {/hpf} (Abnormal) Ra nge: 0-5 /hpf Urine Epithelial Cell Auto 20-30 Range: 0-5 /lpf {/lpf} (Abnormal) Urine Cast (Auto) 1-5 {/lpf} Range: 0-5 /lpf Urine Bacteria (Auto) 4+ (Abnormal) Rang e: Negative Urine Culture 31-Jan-2019 10:03 URINE CULTURE CATH ORDERED PROCEDURE : Urine Culture; Speciment : Urine,Clean Catch Source of Specimen: Clean Catch Urine Culture : Escherichia coli [place] Count\\S\\[place] Count >100,000 +MIX URINE\\S\\+Mix Urine Plus Low Counts of Other Mixed [place] S\\S\\Sens Sensitivities to Follow S = SENSITIVE I = INTERMEDIATE R = RESISTANT ORGANISM : Negative/Urine Combo 61 Amikacin : S <=16Ampicillin : S <=8Ampicillin/Sulbactam : S <=8/4Cefazolin : S <=8Cefepime : S <=4Cefotaxime : S <=2Cefoxitin : S <=8Ceftriaxone : S <=1Cefuroxime : S <=4Ciprofloxacin : S <=1Ertapenem : S <=1Gentamicin : S <=4Imipenem : S <=1Levofloxacin : S <=2Nitrofurantoin : S <=32Tobramycin : S <=4Trimethoprim/Sulfamethoxazole : S <=2/38Piperacillin/Tazobactam : S <=16 BLOOD BANK HOLD TUBE Laboratory: [facility] [address] [place] [address] tel: 25-Feb-2019 10:33 BLOOD BANK HOLD TUBE Run: 02/25/19 1054 [facility] Pathology Report Name: JOSE MARTIN ESPOSITO Age/Sex: 63/F [facility]: [id number] Unit: [id number] Status: REG [facility] Room/Bed:Re02/25/19 Disch: Att Dr: Kunal Henderson, DO Spec: [id number] Collected: 02/25/19Received: 02/25/19-[address]: Kunal Henderson, DOCopy To: Víctor Macias MDOrd Prods: (NO ORDERED PRODUCTS)Ord Tests: (NO REPORTABLE TESTS) Test Result Flag Reference Site <No reportable results> Tests: Date Time Order Change Action User02/24/19 1427 Blood Bank Hold 1 NEW [id number] END OF REPORT XR knee LT 2V routine Laboratory: [facility] Diagnostic Imaging (Pending) [address] [facility] 25-Feb-2019 16:48 XR knee LT 2V routine [facility] [phone] XRay Report Patient: JOSE MARTIN ESPOSITO Admit Date: 02/25/19 MR#: [id number] Address1: [address] [place] [address] Acct ID:[id number] Address2: Date: 1955 [facility] Zip: [place] [address] Age: 63 Location: [facility] Sex: F Room/Bed: Att Phy: Kunal Henderson DO Diagnosis: Le ft Knee Degenerative Joint Disease Latoya Phy: Víctor Macias MD Service D ate: 02/25/19 Fam Phy: Interpreting Phy: Dez Pantoja MD Admit Phy: Ordering Phy: Kunal Sierra PA-C cc: XR knee LT 2V routine CLINICAL HISTORY: Surgical Post Op postoperative evaluation COMPARISON: None. DISCUSSION: Anatomic alignment post total left knee arthroplasty. Good contact between prosthetic and underlying bone. Expected postoperative soft tissue change IMPRESSION: Anatomic alignment post total left knee arthroplasty. The above report was generated using voice recognition software. It may contain grammatical, syntax or spelling errors. Electronically signed by: Dez Pantoja M.D. 02/25/2019 4:49 PM Dictated: 02/25/191647 Transcribed: 02/25/191647 Vital Signs 09-Feb-2019 13:39 Systolic 165 mm[Hg] Comments: Location: [facility]; Position: Sitting Diastolic 92 mm[Hg] Comments: Location: LUE; Position: Sitting Heart Rate 84 /min BMI Calculated 35.97 kg/m2 Weight 193.5 lb BSA Calculated 1.87 m2 08-Feb-2019 16:27 Systolic 142 mm[Hg] Diastolic 82 mm[Hg] Heart Rate 97 /min O2 Saturation 99 % Respiration 16 /min Temperature 98 f 31-Jan-2019 9:46 Systolic 156 mm[Hg] Comments: Location: LUE; Position: Sitting Diastolic 90 mm[Hg] Comments: Location: LUE; Position: Sitting Heart Rate 104 /min BMI Calculated 35.88 kg/m2 Weight 193 lb BSA Calculated 1.87 m2 Respiration 16 /min Temperature 97.8 f Comments: Method: Te mporal Height 61.5 in Encounters Appointment; Vascular, Studies SC1 21-Feb-2019 10:15 Encounter Diagnosis: Problem not documented Appointment; Elizabeth Garcia PA-C 09-Feb-2019 13:40 Encounter Diagnosis: Problem not documented Appointment; Vicki Higgins PA-C 08-Feb-2019 16:30 Encounter Diagnosis: Problem not documented Appointment; Víctor Macias M.D. 31-Jan-2019 9:50 Encounter Diagnosis: Problem not documented Appointment; Elizabeth Garcia PA-C 12-Jan-2019 14:00 Encounter Diagnosis: Problem not documented Appointment; Saúl Zhang Au.D.|[facility] 12-Jan-2019 13:40 Encounter Diagnosis: Problem not documented Appointment; Roxana Mckeon PA-C 15-Dec-2018 10:55 Encounter Diagnosis: Problem not documented Appointment; Teresa Fam CRNP 27-Oct-2018 11:00 Encounter Diagnosis: Problem not documented Appointment; Venus Mcintosh PA-C 30-Sep-2018 15:00 Encounter Diagnosis: Problem not documented Appointment; Urology, Room 6 02-Sep-2018 10:30 Encounter Diagnosis: Problem not documented Appointment; Tamia Damon PA-C 09-Aug-2018 11:00 Encounter Diagnosis: Problem not documented Appointment; Urology, Room 6 29-Jul-2018 9:45 Encounter Diagnosis: Problem not documented Appointment; Víctor Macias M.D. 21-Jul-2018 13:30 Encounter Diagnosis: Problem not documented Appointment; Urology, Room 6 24-Jun-2018 15:15 Encounter Diagnosis: Problem not documented Appointment; Urology, Room 6 20-May-2018 10:30 Encounter Diagnosis: Problem not documented Appointment; Wen Wallis DO 28-Apr-2018 11:30 Encounter Diagnosis: Problem not documented Appointment; Urology, Room 6 15-Apr-2018 15:15 Encounter Diagnosis: Problem not documented Appointment; Tamia Damon PA-C 17-Mar-2018 9:00 Encounter Diagnosis: Problem not documented Appointment; Urology, Room 6 11-Mar-2018 15:15 Encounter Diagnosis: Problem not documented Appointment; Urology, Room 6 04-Feb-2018 10:30 Encounter Diagnosis: Problem not documented Appointment; Víctor Macias M.D. 18-Jan-2018 13:30 Encounter Diagnosis: Problem not documented Appointment; Yadira Thomson CRNP 06-Jan-2018 13:00 Encounter Diagnosis: Problem not documented Appointment; Urology, Room 6 24-Dec-2017 10:30 Encounter Diagnosis: Problem not documented Appointment; Mark Wylie M.D. 23-Nov-2017 16:40 Encounter Diagnosis: Problem not documented Appointment; Urology, Room 6 05-Nov-2017 10:30 Encounter Diagnosis: Problem not documented Appointment; Urology, Room 6 01-Oct-2017 10:30 Encounter Diagnosis: Problem not documented Appointment; Urology, Room 6 20-Aug-2017 10:15 Encounter Diagnosis: Problem not documented Appointment; Víctor Macias M.D. 13-Jul-2017 13:10 Encounter Diagnosis: Problem not documented Appointment; Urology, Room 6 09-Jul-2017 10:30 Encounter Diagnosis: Problem not documented Appointment; Yadira Thomson CRNP 15-Jun-2017 10:50 Encounter Diagnosis: Problem not documented Appointment; Urology, Room 6 28-May-2017 10:30 Encounter Diagnosis: Problem not documented Appointment; Urology, Room 6 23-Apr-2017 9:30 Encounter Diagnosis: Problem not documented Appointment; Tamia Damon PA-C 03-Aug-2019 14:00 Encounter Diagnosis: Problem not documented"
== END 2019-02-27 11:58 | disposition home or self-care (01) | DRG 470 ==
LOC: ASU 10:19 → 3E 16:23

== ENCOUNTER 2024-09-02 09:03 | Observation (INO) ==
--- NOTE | 2024-08-25 11:12 | Anesthesiology Consultation ---
Date of Service August 25, 2024 Assessment & Plan (1) Encounter for pre-operative examination: Chart Review Chart Review: Acceptable Risk for Surgery and Patient NOT seen in Pre Admission Testing -Pt seen by Cardio 08/05/24 for surgeon-ordered clearance. Per note, "Doing well from a cardiac perspective. No change or decline in her functional capacity... Per Luc Criteria, patient was counseled that shewould be placed at a lowrisk for any adverse perioperative cardiovascular events associated withuro-stone planer surgery. Patient is on a good medication regimen and no other cardiac testing or interventions would further lower that risk.Patient statesheunderstands and is accepting ofthat risk and wishes to proceed with surgery." EKG completed and reviewed: "compared with her prior study, unchanged," Infectious Disease screening: Per PAT nursing assessment on 08/24/24, No known infectious disease contacts in past 10 days or current infectious disease symptoms. No recent travel outside the country. History Surgery Operation Date: 09/02/24 10:20 Proposed Procedures p Robotic Assisted Hysterectomy, Bilateral Salpingo-Oophorectomy, Robotic Assisted Sacral Colpopexy, - Saúl Marie MD s Possible Mid Urethral Sling and Cystoscopy - Saúl Marie MD Height/Weight Height: 5 ft 2 in Weight: 81.647 kg Allergies Allergy/AdvReac Type Severity Reaction Status Date / Time amoxicillin AdvReac Mild YEAST Verified 08/24/24 15:04 INFECTION Medications Home Medications Medication Instructions Recorded Confirmed Last Taken lactobacillus combination no.4 3 1 cap PO HS 03/05/19 08/24/24 Unknown billion cell capsule (Probiotic) fluticasone propionate 50 2 sprays intranasal DAILY PRN 08/03/19 08/24/24 Unknown mcg/actuation nasal Allergy Symptoms spray,suspension amoxicillin 500 mg tablet 2,000 mg (4 x 500 mg) PO ONCE PRN 03/05/21 08/24/24 Unknown prophylaxis #4 tabs losartan 100 mg tablet 100 mg PO QAM #90 tabs 04/08/21 08/24/24 Unknown buspirone 7.5 mg tablet 7.5 mg PO BID PRN anxiety #60 tabs 05/22/21 08/24/24 Unknown ondansetron HCl 4 mg tablet 4 mg PO Q8H PRN nausea and 10/08/21 08/24/24 Unknown (Zofran) vomiting #30 tabs cholecalciferol (vitamin D3) 25 1,000 unit PO QAM 08/15/22 08/24/24 Unknown mcg (1,000 unit) chewable tablet (Vitamin D3) desonide 0.05 % topical cream 1 applic topical BID PRN Rash 08/15/22 08/24/24 Unknown hydrochlorothiazide 25 mg tablet 25 mg PO DAILY PRN Edema 08/15/22 08/24/24 Unknown multivitamin 2 tab PO QAM 08/15/22 08/24/24 Unknown baclofen 5 mg tablet 5 mg PO HS PRN muscle cramps 09/29/22 08/24/24 Unknown azelastine 137 mcg (0.1 %) nasal 1 spray intranasal BID PRN Allergy 07/06/24 08/24/24 Unknown spray Symptoms simvastatin 20 mg tablet 20 mg PO QAM 07/06/24 08/24/24 Unknown aspirin 81 mg tablet,delayed 81 mg PO QAM 08/24/24 08/24/24 Unknown release (Ecotrin Low Strength) aspirin-caffeine 500 mg-32.5 mg 1 tab PO UD PRN Pain 08/24/24 08/24/24 Unknown tablet ([facility] [employer] [facility]) loratadine-pseudoephedrine ER 10 1 tab PO QAM 08/24/24 08/24/24 Unknown mg-240 mg tablet,extended [id number] (Claritin-D 24 Hour) magnesium oxide 400 mg PO DAILY PRN muscle cramps 08/24/24 08/24/24 Unknown pantoprazole 40 mg tablet,delayed 40 mg PO QAM 08/24/24 08/24/24 Unknown release Past Medical History Medical History (Updated 08/25/24 @ 11:32 by Justine Lei PA-C) Carotid artery plaque <50% stenosis B/L ICA per most recent (2018 Doppler); follows with [facility] Cervical facet joint syndrome Chronic rhinitis Cystocele with rectocele Depressive disorder Diabetes no medications Dyslipidemia GERD (gastroesophageal reflux disease) Hearing deficit B/L HEARING AIDS History of anxiety History of chest pain 2013; per pt was due to a chest cold not cardiac related History of hepatitis C DIAGNOSED 2006; S/P TREATMENT X 1 YEAR- REPEAT TESTING HAS UNDETECTABLE VIRAL LOAD History of postoperative nausea and vomiting Hypertension Incontinence Obesity Osteoarthritis Right internal carotid artery aneurysm follows with [facility]; most recent visit: 06/14/24: per note "unchanged R carotid ectasia/aneurysm: imaging same day showed 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 and projecting anteriorally Spinal stenosis with lumbar radiculopathy; follows with pain clinic Vitamin D deficiency Past Family History Family History Mother Diabetes Coronary heart disease Chronic systolic congestive heart failure Father Coronary heart disease Myocardial infarction Hypertension Stroke Other No family history of adverse response to anesthesia Denies family history of Ovarian cancer Prostate cancer Breast cancer Colorectal cancer Past Surgical History Surgical History H/O carpal tunnel repair BL History of bilateral cataract extraction History of bilateral tubal ligation History of colonoscopy History of dilatation and curettage History of esophagogastroduodenoscopy (EGD) 12/29/18= MAC sedation at [facility] History of hysteroscopy pt states she does not remember this surgery History of left oophorectomy History of tonsillectomy History of tooth extraction History of total left knee replacement (TKR) (01/2019) Social History Smoking Status: Never smoker Do You Dip or Chew Tobacco: No Hx Alcohol Use: No Hx Substance Use: No substance use type: does not use Lab Results Anesthesia Preop Results Results Anesthesia Widget: WBC 3.30 K/ul (4.8-10.8) L 08/09/24 Hgb 12.9 g/dl (12.0-16.0) 08/09/24 Hct 39.3 % (37.0-47.0) 08/09/24 Plt 302 K/uL (130-400) 08/09/24 Na 143 mmol/L (136-145) 08/09/24 K 4.6 mmol/L (3.5-5.1) 08/09/24 Cl 109 mmol/L (98-107) H 08/09/24 CO2 28 mmol/L (21-32) 08/09/24 BUN 22 mg/dl (6-23) 08/09/24 Creat 1.06 mg/dl (0.6-1.2) 08/09/24 Glucose Level 96 mg/dl (70-99(Fasting)) 08/09/24 Blood Type O Positive 08/09/24 Antibody Screen NEGATIVE 08/09/24 Testing Electrocardiogram Date: 08/05/24 Findings: + NSR @ (90bpm) low voltage QRS. Cannot r/o anterior infarct, age undetermined Compared to 05/23/24, No significant change. Chest X-Ray Date: 06/23/24 Findings: + NAD Other Testing 04/08/19 Carotid Duplex: -Right carotid artery duplex examination indicates evidence of less than 50% stenosis of the internal carotid artery. Tortuousity of the right internal carotid artery is noted, no evidence of aneurysm. -Left carotid artery duplex examination indicates evidence of less than 50% stenosis of the internal carotid artery. Tortuousity of the left internal carotid artery is noted, no evidence of aneurysm. 06/15/24 CTA Head/Neck: 1. No significant interval changes. Stable mild atherosclerotic disease as described above without evidence of stenosis. 2. Mild fibromuscular dysplasia (FMD) in the cervical ICAs. 3. 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 4. Chronic predominantly age-related nonvascular findings as detailed above. 04/04/23 MRI C-Spine: 1. Multilevel, multifactorial degenerative changes of the cervical spine with varying degrees of spinal canal and neural foraminal stenosis as described, most prominent at C5-6 and C6-7. 2. Asymmetric STIR hyperintensity with left C3-C4 facets and perifacet soft ti ssues, which may represent nonspecific facet arthropathy with inflammation or reactive edema. 3. Additional findings as described above. 02/09/23 Xray C-Spine: Mild retrolisthesis of C3 on C4, C4 on C5, and C5 on C6. This is most pronounced on the extension view and is reduced on the flexion view (with mild residual retrolisthesis at C5-6). Multilevel intervertebral disc degeneration and uncovertebral osteoarthritis, moderate at C5-6. Multilevel facet osteoarthritis. Multilevel osseous foraminal stenosis on the oblique views. No acute fracture or aggressive bone lesion identified. No significant prevertebral soft tissue swelling. Visualized lung apices are clear.
--- NOTE | 2024-09-02 05:39 | History & Physical Report ---
Date of Service September 02, 2024 Assessment & Plan (1) Uterovaginal prolapse, incomplete: Plan: We reviewed the grade 3 cystocele, grade 1 uterine prolapse, and grade 1 rectocele. She no longer wants to use the pessary and she desires surgery. We reviewed transvaginal surgery vs robotic surgery and she desires robotic hysterectomy, sacral colpopexy with mesh, cystoscopy, and possible sling. We reviewed the risks of surgery including infection, bleeding, injury, pain, mesh exposure, urinary retention, urinary incontinence. All questions answered. Informed consent confirmed. Present on Admission?: Yes Admission and Anticipated Discharge Date Admission Date: 09/02/2024 Anticipated date of discharge: 09/03/24 History of Present Illness Chief Complaint: Uterovaginal prolapse Primary Care Provider: DO Isabel Scott complains of vaginal bulge. She was using a pessary but removed it about 2 months ago because of discomfort and bleeding. Since removing it, the pain and bleeding has resolved. She reports urinary urgency and urge incontinence before she can to the toilet in time. Less often, she may have JOAO with coughing or sneezing. Allergies Allergy/AdvReac Type Severity Reaction Status Date / Time amoxicillin AdvReac Mild YEAST Verified 09/02/24 09:29 INFECTION Home Medications Medication Instructions Recorded Confirmed Type lactobacillus combination no.4 3 1 cap PO HS 03/05/19 09/02/24 History billion cell capsule (Probiotic) fluticasone propionate 50 2 sprays intranasal DAILY PRN 08/03/19 09/02/24 History mcg/actuation nasal Allergy Symptoms spray,suspension losartan 100 mg tablet 100 mg PO QAM #90 tabs 04/08/21 09/02/24 Rx buspirone 7.5 mg tablet 7.5 mg PO BID PRN anxiety #60 tabs 05/22/21 09/02/24 Rx ondansetron HCl 4 mg tablet 4 mg PO Q8H PRN nausea and 10/08/21 09/02/24 Rx (Zofran) vomiting #30 tabs cholecalciferol (vitamin D3) 25 1,000 unit PO QAM 08/15/22 09/02/24 History mcg (1,000 unit) chewable tablet (Vitamin D3) desonide 0.05 % topical cream 1 applic topical BID PRN Rash 08/15/22 09/02/24 History hydrochlorothiazide 25 mg tablet 25 mg PO DAILY PRN Edema 08/15/22 09/02/24 History multivitamin 2 tab PO QAM 08/15/22 09/02/24 History baclofen 5 mg tablet 5 mg PO HS PRN muscle cramps 09/29/22 09/02/24 History azelastine 137 mcg (0.1 %) nasal 1 spray intranasal BID PRN Allergy 07/06/24 09/02/24 History spray Symptoms simvastatin 20 mg tablet 20 mg PO QAM 07/06/24 09/02/24 History aspirin 81 mg tablet,delayed 81 mg PO QAM 08/24/24 09/02/24 History release (Ecotrin Low Strength) aspirin-caffeine 500 mg-32.5 mg 1 tab PO UD PRN Pain 08/24/24 09/02/24 History tablet ([facility] [employer]) loratadine-pseudoephedrine ER 10 1 tab PO QAM 08/24/24 09/02/24 History mg-240 mg tablet,extended [id number] (Claritin-D 24 Hour) magnesium oxide 400 mg PO DAILY PRN muscle cramps 08/24/24 09/02/24 History pantoprazole 40 mg tablet,delayed 40 mg PO QAM 08/24/24 09/02/24 History release Past Med/Surg History Problem List Uterovaginal prolapse, incomplete Osteoarthritis of right knee Cervical facet joint syndrome Bilateral knee pain Myofascial pain Chronic rhinitis Hypertrophy of both inferior nasal turbinates Subacute sinusitis Irritability Eructation Cystocele with rectocele Right internal carotid artery aneurysm Carotid artery plaque Biceps tendinitis of left shoulder Strain of left knee Contusion, knee Lumbar facet joint syndrome Vitamin D deficiency (Acute) Prolapse of female pelvic organs Incontinence Bilateral impacted cerumen History of total left knee replacement Hypertension (Chronic) Diabetes mellitus (Chronic) Palpitations (Acute) Lumbar radiculopathy Osteoarthritis of left knee Abdominal pain, epigastric History of hepatitis C DIAGNOSED 2006; S/P TREATMENT X 1 YEAR- REPEAT TESTING HAS UNDETECTABLE VIRAL LOAD Depressive disorder Dyslipidemia (Chronic) GERD (gastroesophageal reflux disease) (Chronic) CONTROLLED Medical History Cervical facet joint syndrome Vitamin D deficiency Incontinence GERD (gastroesophageal reflux disease) Depressive disorder Cystocele with rectocele Chronic rhinitis History of chest pain 2013; per pt was due to a chest cold not cardiac related Dyslipidemia History of hepatitis C DIAGNOSED 2006; S/P TREATMENT X 1 YEAR- REPEAT TESTING HAS UNDETECTABLE VIRAL LOAD Carotid artery plaque <50% stenosis B/L ICA per most recent (2018 Doppler); follows with [facility] Right internal carotid artery aneurysm follows with [facility]; most recent visit: 06/14/24: per note "unchanged R carotid ectasia/aneurysm: imaging same day showed 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 and projecting anteriorally History of postoperative nausea and vomiting Obesity Diabetes no medications Spinal stenosis with lumbar radiculopathy; follows with pain clinic Osteoarthritis Hearing deficit B/L HEARING AIDS History of anxiety Hypertension Surgical History History of bilateral cataract extraction History of left oophorectomy History of total left knee replacement (TKR) (01/2019) History of esophagogastroduodenoscopy (EGD) 12/29/18= MAC sedation at [facility] H/O carpal tunnel repair BL History of bilateral tubal ligation History of tooth extraction History of colonoscopy History of tonsillectomy History of hysteroscopy pt states she does not remember this surgery History of dilatation and curettage Family History Mother Diabetes Coronary heart disease Chronic systolic congestive heart failure Father Coronary heart disease Myocardial infarction Hypertension Stroke Other No family history of adverse response to anesthesia Denies family history of Ovarian cancer Prostate cancer Breast cancer Colorectal cancer Social History Smoking Status: Never smoker Second Hand Exposure: Yes (MANY YEARS AGO); Do You Dip or Chew Tobacco: No; Tobacco Cessation Education Requested by Patient: No Hx Alcohol Use: No Hx Substance Use: No Preferred Language: [place] Communication Ability: Effective Visual Impairment: No Limitations Hearing Ability: Use of Hearing Aid Health Tech Required: No Beliefs That Will Affect Care: None marital status: / Current Living Situation: Family Current Living Situation Comment: DAUGHTER LIVES WITH PT current occupational status: retired Other Information That Helps Us Care for You: No Feels Safe at Home: Yes Safety Concerns: Feels Safe At This Time Childhood Exposure to Second-Hand Smoke: No Diet: regular caffeine: No Dental Care, Regularly: Yes Physical Activity Frequency: Daily Seatbelt Use: always Sunscreen Use: No Assistive Devices: Glasses and Hearing Aid - Bilateral Assistive Devices Comment: reading glasses Review of Systems Review of Systems: All systems reviewed & are unremarkable except as noted in HPI & below Physical Exam Constitutional: WD/WN, vitals as above Eyes: PERRL, conjunctivae normal, anicteric sclerae ENMT: external ear and nose normal, oropharynx normal Neck: trachea midline, no thyromegaly Respiratory: normal respiratory effort Cardiovascular: Rate/Rhythm: regular rate Gastrointestinal (Abdomen): Inspection/Auscultation: abdomen normal to inspection Musculoskeletal: no cyanosis or clubbing, extremities motor strength 5/5 Skin: no rashes, warm and dry Psychiatric: A+Ox3, euthymic affect Code Status & VTE Plan VTE Prophylaxis Plan VTE Prophylaxis will be ordered: Yes
[2024-09-02] MEDS ORDERED: ATROPINE SULFATE 0.1 MG/ML 10ML SYR IV PRN (09:37)
[2024-09-02] MEDS ORDERED: PROMETHAZINE HCL 6.25 MG in SODIUM CHLORIDE 0.9% 50 ML IV PRN (09:37)
[2024-09-02] MEDS ORDERED: ONDANSETRON INJ 2 MG/ML 2 ML VIAL IV PRN ×2 (09:37→14:04)
[2024-09-02] MEDS ORDERED: ePHEDrine sulfate 50 MG/ML AMP IV PRN (09:37)
[2024-09-02] MEDS ORDERED: HYDROmorphone INJ 1 MG/ML SYRINGE IV PRN (09:37)
[2024-09-02] MEDS ORDERED: fentaNYL citrate PF 100 MCG/2 ML VIAL IV PRN (09:37)
[2024-09-02] MEDS ORDERED: ROCURONIUM BROMIDE 10 MG/ML 5 ML VIAL IV ONE ×2 (09:43→12:24)
[2024-09-02] MEDS ORDERED: fentaNYL citrate PF 100 MCG/2 ML VIAL ONE ×2 (09:43→12:42)
[2024-09-02] MEDS ORDERED: PROPOFOL IV EMULSION 10 MG/ML 20 ML VIAL IV ONE (09:43)
[2024-09-02] MEDS: LR 15ML/HR IV SCH (09:56)
[2024-09-02] MEDS ORDERED: WATER, STERILE FOR INJ 10 ML VIAL ONE (10:18)
[2024-09-02] MEDS ORDERED: ePHEDrine sulfate 50 MG/ML AMP ONE (10:18)
--- OUTSIDE RECORDS SUMMARY | 2024-09-02 10:56 | External Medical Summary | Summary of Care ---
Author Name Unknown Organization [facility] Address [address] [place] [address] Phone [phone] Care Team Providers Care Engineering Intern Name Role Phone Rakesh Holt Primary Care Provider Encounter Details Date Type Department Care Team (Late st Contact Info) Description 08/09/2024 Result Scan Unspecified Department <No scans attached> Allergies No known active allergiesdocumented as of this encounter (statuses as of 08/10/2024) Medications Medication Sig Dispensed Refills Start Date End Date Status aspirin enteric coated 81 MG TBEC Take 1 Tablet by mouth in the morning. 9 Active Byron Back & Body 500-32.5 MG Oral Tablet (Aspirin-Caffeine) As needed for back pain 2 Active Vitamin D 50 MCG (2000 UT) Oral Tablet Take by mouth 2,000 Units in the morning. 2 Active Alive Womens Gummy Oral Tablet Chewable vitafusion gummy - 2 daily 2 Active Acetaminophen ER 650 MG Oral Tablet Extended Release Take 1 Tablet by mouth every 8 hours as needed. Active Vitamin C 250 MG Oral Tablet Chewable Take 1 Tablet by mouth in the morning. Unsure of mg . Active Loratadine 10 MG Oral Tablet (Claritin) Take 1 Tablet by mouth daily as needed. Active Losartan Potassium 100 MG Oral Tablet (Cozaar)Indications:Essen tial hypertension with goal blood pressure less than 140/90 TAKE ONE TABLET BY MOUTH IN THE MORNING 100 Tablet 2 4 Active Simvastatin 20 MG Oral Tablet (Zocor)Indications:Pure hypercholesterolemia Take 1 Tablet by mouth every night at bedtime. 100 Tablet 3 4 Active Additional Information Patient taking differently:20 mg [id number], Reported on 05/23/2024 ProAir HFA 108 (90 Base) MCG/ACT Inhalation Aerosol Solution Inhale 2 puffs by mouth every 4 hours as needed. 18 g 3 4 Active Pantoprazole Sodium 40 MG Oral Tablet Delayed Release (Protonix)Indications:Gas troesophageal reflux disease without esophagitis TAKE ONE TABLET BY MOUTH EVERY DAY IN THE MORNING 100 Tablet 2 4 03/28/20 25 Active Fluticasone Propionate 50 MCG/ACT Nasal Suspension (Flonase)Indications:Technician Helper Instrument wendy rhinitis,Post-nasal drip Administer 1 [place] into each nostril in the morning and 1 [place] before bedtime. 15.8 mL 1 4 Active Azelastine HCl 0.1 % Nasal Solution (Astelin)Indications:Technician Helper Instrument wendy rhinitis,Post-nasal drip Administer 1 [place] into nostril in the morning and 1 [place] before bedtime. 30 mL 1 4 Active Ondansetron HCl 4 MG Oral TabletIndications:Nausea Take 1 Tablet by mouth every 8 hours as needed for Nausea. 30 Tablet 4 Active hydroCHLOROthiazide 25 MG Oral Tablet (Hydrodiuril)Indications: Essential hypertension with goal blood pressure less than 140/90 One tablet by mouth 2-3 days per week 4 Active documented as of this encounter (statuses as of 08/10/2024) Active Problems Problem Noted Date Diagnosed Date Chronic kidney disease, stage 3a 12/14/2023 Overview: Per CKD protocol Lumbar disc disease 01/14/2022 Carotid artery aneurysm 11/05/2021 Right-sided carotid artery disease 04/08/2019 Essential hypertension with goal blood pressure less than 140/90 04/08/2019 Type 2 diabetes mellitus wit h hemoglobin A1c goal of less than 8.0% 01/19/2019 Pure hypercholesterolemia 01/19/2019 Gastroesophageal reflux disease without esophagi tis 01/19/2019 Primary osteoarthritis of left knee 01/19/2019 documented as of this encounter (statuses as of 08/10/2024) Immunizations Name Administration Dates Next Due COVID-19 mRNA, LNP-s, No Pre serve, 2-Dose Series (Arthena) 10/05/2021,12/15/2020,11/24/2020 Covid-19, Mrna, Lnp-s, Pf, B ivalent, 30 Mcg, IM, 12 yrs and above (Pfizer) 11/11/2022,07/25/2022 PPD 09/16/2023, 3,11/14/2019,11/04 Pneumococcal Conjugate Vacc, 13 Valent (Prevnar) 08/31/2019,07/21/2018 Pneumococcal Polysaccharide PPV23 (Pneumovax) 02/26/2019 Seasonal Influenza Virus Vac cine, Unspecified Formulation 07/21/2018,07/03/2017,11/02/2015,08/24,07/31/2014 Seasonal Influenza, Quadriva lent Hd (Fluzone Hd) 08/03/2023,07/08/2022,09/20/2021 Seasonal Influenza, Trivalen t, Adjuvanted, 65+ YRS, PF, (Fluad) 08/31/2019 TDAP, Age 7 and older, IM (Adacel) 01/18/2018 Varicella Zoster Vaccine (Adult) 01/04/2014 Zoster Vaccine Recombinant (Shingrix) 04/17/2022 ,01/14/2022 documented as of this encounter Social History Tobacco Use Types Packs/Day Years Used Date Smoking Tobacco: Never Passive Smoke Exposure: Past Smokeless Tobacco: Never Comments:Prior spouses smoke d. Alcohol Use Standard Drinks/Week Comments No 0 (1 standard drink = 0.6 oz pur e alcohol) AUDIT-C Answer Date Recorded Frequency of Alcohol Consumption Never 01/19/2019 Average Number of Drinks Not on file 019 Frequency of Binge Drinking Not on file 01/01 PHQ-2 Answer Date Recorded PHQ Adult Total Score 0 09/02/2023 Hunger Vital Sign Answer Date Recorded Within the past 12 months, y ou worried that your food would run out before you got the money to buy more. Never true 09/02/20 23 Within the past 12 months, t he food you bought just didn't last and you didn't have money to get more. Never true 09/02/2023 Childcare Answer Date Recorded Do you feel overwhelmed with taking care of a child, family member or friend? No 09/02/2023 Does your family need help f inding childcare? (Household - for ages 0-17 years) Not on file 09/02/2023 Clothing Answer Date Recorded Have you been unable to get clothing when it was really needed? No 09/02/2023 Is your family able to get c lothes or diapers when needed? (Household - for ages 0-17 years) Not on file 09/02/2023 Personal Safety Answer Date Recorded Do you feel unsafe or have concerns for your saf ety? No 09/02/2023 Do you have concerns for you r family's safety? (Household - for ages 0-17 years) Not on file 09/02/2023 Utilities Answer Date Recorded Do you have trouble paying y our heating, water, or electric bill? No 09/02/2023 Is your family able to pay t he heat, water, or electric bill? (Household - for ages 0-17 years) Not on file 09/02/2023 Does your family have access to good internet? (Household - for ages 0-17 years) Not on file 09/02/2023 Employment Status Answer Date Recorded Are you unemployed or without regular income? No 09/02/2023 [facility] the [facility] have a [facility] source [facility] income? (Household - for ages 0-17 years) Not on file 09/02/2023 Social Connections Answer Date Recorded How often do you feel lonely or isolated from th ose around you? Never 09/02/2023 Financial Resource Strain Answer Date R ecorded Do you have any trouble payi ng for your medications, or do you think you might in the future? No 09/02/2023 Does your family have troubl e paying for medicine? (Household - for ages 0-17 years) Not on file 09/02/2023 Transportation Needs Answer Date Record ed READ ONLY Do you have troubl e getting a ride to medical visits or work? Never True 09/02/2023 Does your family have a hard time getting a ride to doctors visits? (Household - for ages 0-17 years) Not on file 09/02/2023 Has lack of transportation k ept you from medical appointments, meetings, work, or from getting things needed for daily living? Check all that apply. (Adult - for ages 18 years and over) Not on file 09/02/2023 Do you (or your family) have trouble finding or paying for a ride (transportation)? (Household - for ages 0-17 years) Not on file 09/02/2023 Housing Stability Answer Date Recorded Do you currently live in a s helter or have no steady place to sleep at night? No 09/02/2023 READ ONLY Do you think you a re at risk of becoming homeless? No 09/02/2023 Does your family worry about paying for your home or becoming homeless? (Household - for ages 0-17 years) Not on file 1 11/02/2022 Are you homeless or worried that you might be in the future? (Adult - for ages 18 years and over) Not on file Are you (or your family) diane eless or worried that you might be in the future? (Household - for ages 0-17 years) Not on file Food Insecurity Answer Date Recorded Do you need food for this week? No 09/02/2023 Are you able to get enough f ood for your family? (Household - for ages 0-17 years) Not on file 09/02/2023 Does your family need food t his week? (Household - for ages 0-17 years) Not on file 09/02/2023 Do you always have enough fo od for your family? (Household - for ages 0-17 years) Not on file 09/02/2023 Sex and Gender Information Value Date Recorded Sex Assigned at Female 07/08/2022 10:09 AM EDT Gender Identity Female 07/08/2022 10:09 AM EDT Sexual Orientation Straight 11/05/2021 8: 27 AM EST Job Start Date Occupation Industry Not on file Not on file Not on file documented as of this encounter Plan of Treatment Upcoming Encounters Date Type Department Care Team (Late st Contact Info) Description 08/11/2024 8:30 AM EDT Office Visit Otolaryngology [facility] [address] [address] Skyler Morse PA-C [address] [address] 09/20/2024 10:00 AM EST Office Visit Urogynecology [facility] [address] [place] [address] Saúl Marie MD [address] [place] [address] 10/18/2024 10:00 AM EST Office Visit Urogynecology [facility] [address] [place] [address] Saúl Marie MD [address] [place] [address] 12/06/2024 3:00 PM EST Office Visit Cardiology, [facility] [address] [place] [address] Bianca Burk CRNP [address] [place] [address] 12/15/2024 1:00 PM EST Office Visit Family Practice [facility] [address] [place] [address] Rakesh Holt DO [address] [place] [address] 01/10/2025 1:30 PM EDT [facility] [address] [place] [address] 02/03/2025 11:00 AM EDT Office [facility] [place] [address] Bianca Burk CRNP [address] [place] [address] Health Maintenance Due Date Last Done Comments CKD PHOS USE SMARTSET 15680 1971 Cologuard 1998 Sigmoidoscopy 1998 Diabetic Foot Exam 11/07/2023 11/07/2022, 01/28/2022 Adult Wellness Visit 12/02/2023 12/02/2022 COVID-19 Vaccine ( season) 2024 11/11/2022, 07/25/2022, 10/05/2021, Additional history exists Influenza Vaccine (FLU shot) (#1) 2024 08/03/2023, 07/08/2022, 09/20/2021, Additional history exists Fecal Occult Blood Test 07/21/2024 07/21/2023, 07/21 Depression Screening 09/02/2024 09/02/2023 Albumin/Creatinine Ratio 09/04/2024 023, 01/14/2022, 11/05/2021 HbA1c 10/07/2024 04/07/2024, 11/02, 08/03/2023, Additional history exists Mammogram 01/07/2025 01/08/2024, 0306/2024, 01/06/2023, Additional history exists GFR 02/07/2025 08/09/2024, 06/02, 04/07/2024, Additional history exists Diabetic Eye Exam 04/14/2025 04/14/2024, , 04/13/2024, Additional history exists DXA Scan 07/06/2025 07/06/2018 CKD HGB USE SMARTSET 59618 08/09/202508/09, 04/07/2024, 04/07/2024, Additional history exists Colonoscopy 10/17/2026 10/17/2016 Colorectal Cancer Screening 10/17/2026 DTap/Tdap Vaccines (2 - Td or Tdap) 01/19/2028 01/18/2018 Lipid Panel 04/07/2029 04/07/2024, 11/02, 06/22/2023, Additional history exists Pneumococcal Vaccine: 65+ Years Completed 08/31/2019, 02/26/2019, 07/21/2018 Zoster Vaccines Completed 04/17/2022, 12/31, 01/04/2014 HPV (Gardasil) Vaccine Aged Out No lo nger eligible based on patient's age to complete this topic Hepatitis B Vaccine Aged Out No longe r eligible based on patient's age to complete this topic MENINGOCOCCAL (MENACTRA/MENVEO) Aged Out No longer eligible based on patient's age to complete this topic documented as of this encounter Medical Devices Implanted Type Area Commanding Officer Garage Device Identifier Shelf Expiration Date Model / Serial / Lot Lens Intraoc 21.0 - [id number] - [id number] Implanted:Qty: 1 on 05/02/2021 by Salvador Askew MD at OR [facility] Right: Eye [employer] 12/30/2025 [id number] / [id number] / [id number] Lens Intraoc 20.5 - [id number] - [id number] Implanted:Qty: 1 on 05/09/2021 by Salvador Askew MD at OR [facility] Left: Eye BAUSCH [employer] LOMB 01/30/2026 [id number] / [id number] / documented as of this encounter Procedures Procedure Name Priority Date/Time Associated Diagnosis Comments OUTSIDE LAB RESULTS 08/09/2024 documented in this encounter Results * OUTSIDE LAB RESULTS (08/09/2024) 08/09/2024 No Physician Data Unknown LABORATORY documented in this encounter Care Teams Engineering Intern Relationship Specialty Start Date End Date Rakesh Holt DO [address] [facility] [place] [address] PCP - General Family Medicine 11/12/23 documented as of this encounter
--- OUTSIDE RECORDS SUMMARY | 2024-09-02 10:56 | External Medical Summary | Summary of Care ---
Author Name Unknown Organization [facility] Address [address] [place] [facility] [place] [address] Phone [phone] Care Team Providers Care Department Store Salesperson Name Role Phone Rakesh Holt Primary Care Provider Encounter Details Date Type Department Care Team (Late st Contact Info) Description 08/09/2024 Orders Only Urogynecology [facility] [address] [place] [address] Saúl Marie MD [address] [place] [address] Allergies No known active allergiesdocumented as of this encounter (statuses as of 08/09/2024) Medications Medication Sig Dispensed Refills Start Date End Date Status aspirin enteric coated 81 MG TBE Take 1 Tablet by mouth in the [...] Active Additional Information Patient taking differently:20 mg [id number], Reported on 05/23/2024 ProAir HFA 108 (90 [...] Active Fluticasone Propionate 50 MCG/ACT Nasal Suspension (Flonase)Indications:Pewter Fabricator wendy rhinitis,Post-nasal drip Administer 1 [place] into each nostril in the morning and 1 [place] before bedtime. 15.8 mL 1 4 Active Azelastine HCl 0.1 % Nasal Solution (Astelin)Indications:Pewter Fabricator wendy rhinitis,Post-nasal drip Administer 1 [place] into nostril in the morning and 1 [place] before bedtime. 30 mL 1 4 Active Ondansetron HCl 4 MG Oral TabletIndications:Nausea Take 1 Tablet by mouth every 8 hours as needed for Nausea. 30 Tablet 4 Active hydroCHLOROthiazide 25 MG Oral Tablet (Hydrodiuril)Indications: Essential hypertension with goal blood pressure less than 140/90 One tablet by mouth 2-3 days per week 4 Active documented as of this encounter (statuses as of 08/09/2024) Active Problems Problem Noted Date Diagnosed Date [...] as of this encounter (statuses as of 08/09/2024) Immunizations Name Administration Dates Next Due COVID-19 mRNA, LNP-s, No Pre serve, 2-Dose Series (GRAM Acquisition) 10/05/2021,12/15/2020,11/24/2020 Covid-19, Mrna, Lnp-s, Pf, B ivalent, [...] No 09/02/2023 Does the household have a re lar source of income? (Household - for ages [...] 08/11/2024 8:30 AM EDT Office Visit Otolaryngology [facility] [address] [place] [address] Skyler Morse PA-C [address] [place] [address] 09/20/2024 10:00 AM EST Office Visit Urogynecology [facility] [address] [place] [address] Saúl Marie MD [address] [place] [address] 10/18/2024 10:00 AM EST Office Visit Urogynecology [facility] [address] [place] [address] Saúl Marie MD [address] [place] [address] 12/06/2024 3:00 PM EST Office Visit Cardiology, [facility] [address] [place] [address] Bianca Burk CRNP [address] [place] [address] 12/15/2024 1:00 PM EST Office Visit Family Practice [facility] [address] [place] [address] Rakesh Holt DO [address] [place] [address] 01/10/2025 1:30 PM EDT Imaging Radiology [facility] [address] [place] [address] 02/03/2025 11:00 AM EDT Office Visit Cardiology, [facility] [address] [place] [address] Bianca Burk CRNP [address] [place] [address] Health Maintenance Due Date Last Done Comments CKD PHOS USE SMARTSET 83720 1971 Cologuard 1998 Sigmoidoscopy 1998 Diabetic Foot [...] 10/07/2024 04/07/2024, 11/02, 08/03/2023, Additional history exists GFR 12/15/2024 08/09/2024, 06/02, 04/07/2024, Additional history exists Mammogram 01/07/2025 01/08/2024, 06/2024, 01/06/2023, Additional history exists CKD HGB USE SMARTSET 13855 04/07/202508/09, 04/07/2024, 04/07/2024, Additional history exists Diabetic Eye Exam 04/14/2025 04/14/2024, , 04/13/2024, Additional history exists DXA Scan 07/06/2025 07/06/2018 Colonoscopy 10/17/2026 10/17/2016 Colorectal Cancer Screening 10/17/2026 [...] this encounter Medical Devices Implanted Type Area Harbor Boat Pilot Device Identifier Shelf Expiration Date Model / Serial / Lot Lens Intraoc 21.0 - [id number] - [id number] Implanted:Qty: 1 on 05/02/2021 by Salvador Askew MD at OR [facility] Right: Eye [employer]OM[employer] 12/30/2025 [id number] / [id number] / [id number] Lens Intraoc 20.5 - [id number] - [id number] Implanted:Qty: 1 on 05/09/2021 by Salvador Askew MD at OR [facility] Left: Eye BAUSCH [employer] LOMB 01/30/2026 [id number] / [id number] / documented as of this encounter Procedures Procedure Name Priority Date/Time Associated Diagnosis Comments CHEMISTRY-OUTSIDE Routine 08/09/2024 documented in this encounter Results * CHEMISTRY-OUTSIDE (08/09/2024) Not all results display below - see scan for full detail SEE SCAN: BMP, CBC OUTSIDE LAB (SEE SCANNED REPORT) CREATININE 1.06 0.6 - 1.2 MG/DL OUTSIDE LAB (SEE SCANNED REPORT) EGFR 56.16 ML/MIN/1. 73M2 OUTSIDE LAB (SEE SCANNED REPORT) POTASSIUM 4.6 3.5 - 5.1 MMOL/L OUTSIDE LAB (SEE SCANNED REPORT) GLUCOSE 96 70 - 99 MG/DL OUTSIDE LAB (SEE SCANNED REPORT) HOURS FASTING OUTSID E LAB (SEE SCANNED REPORT) TRIGLYCERIDES-OUT SIDE LAB OUTSIDE LAB (SEE SCANNED REPORT) CHOLESTEROL-OUTSI DE LAB OUTSIDE LAB (SEE SCANNED REPORT) HDL-OUTSIDE LAB OUTS LA LAB (SEE SCANNED REPORT) CHOL/HDL RATIO-OUTSIDE LAB OUTSIDE LA B (SEE SCANNED REPORT) LDL (CALCULATED)-OUTS LA LAB OUTSIDE LAB (SEE SCANNED REPORT) LDL (DIRECT MEASURE)-OUTSIDE LAB OUTSIDE LAB (SEE SCANNED REPORT) HEMOGLOBIN, [id number] LAB OUTSIDE LAB (SEE SCANNED REPORT) PHOSPHORUS-OUTSID E LAB OUTSIDE LAB (SEE SCANNED REPORT) PTH-OUTSIDE LAB OUTS LA LAB (SEE SCANNED REPORT) MICROALBUMIN RATIO-OUTSIDE LAB OUTSIDE LA B (SEE SCANNED REPORT) PROTEIN, UA-OUTSIDE LAB OUTSIDE LAB (SEE SCANNED REPORT) HGB 12.9 12.0 - 16.0 G/DL OUTSIDE LAB (SEE SCANNED REPORT) 08/09/2024 Saúl Marie MD LABORATORY OUTSIDE LAB (SEE SCANNED REPORT) documented in this encounter Care Teams Department Store Salesperson Relationship Specialty Start Date End Date Rakesh Holt DO [address] [address] PCP - General Family Medicine 11/12/23 documented as of this encounter
--- OUTSIDE RECORDS SUMMARY | 2024-09-02 10:56 | External Medical Summary | Summary of Care ---
Author Name Unknown Organization [facility] Address [address] [address] Phone [phone] Care Team Providers Care Tube Skiver Name Role Phone Christen Holtr Dale Primary Care Provider Reason for Visit * Reason Comments Follow Up Encounter Details Date Type Department Care Team (Late st Contact Info) Description 08/11/2024 8:30 AM EDT Office Visit Otolaryngology [facility] [address] [place] [address] Skyler Morse PA-C [address] [place] [id number] Chronic rhinitis*; Left ear impacted cerumen; Post-nasal drip Allergies No known active allergiesdocumented as of this encounter (statuses as of 08/11/2024) Medications Medication Sig Dispensed Refills Start Date End Date Status aspirin enteric coated 81 MG TBEC Take 1 Tablet by mouth in the morning. 9 Active Byron Back & Body 500-32.5 MG Oral Tablet (Aspirin-Caffeine) As needed for back pain 2 Active Vitamin D 50 MCG (1999) Oral Tablet Take by mouth 2,000 Units [...] Active Additional Information Patient taking differently:20 mg [id number], Reported on 05/23/2024 ProAir HFA 108 (90 [...] Active Fluticasone Propionate 50 MCG/ACT Nasal Suspension (Flonase)Indications:Vinyl Dipper wendy rhinitis,Post-nasal drip Administer 1 Stevenson into each nostril in the morning and 1 Stevenson before bedtime. 15.8 mL 1 4 Active Azelastine HCl 0.1 % Nasal Solution (Astelin)Indications:Vinyl Dipper wendy rhinitis,Post-nasal drip Administer 1 Stevenson into nostril in the morning and 1 Stevenson before bedtime. 30 mL 1 4 Active Ondansetron HCl 4 MG Oral TabletIndications:Nausea Take 1 Tablet by mouth every 8 hours as needed for Nausea. 30 Tablet 4 Active hydroCHLOROthiazide 25 MG Oral Tablet (Hydrodiuril)Indications: Essential hypertension with goal blood pressure less than 140/90 One tablet by mouth 2-3 days per week 4 Active documented as of this encounter (statuses as of 08/11/2024) Active Problems Problem Noted Date Diagnosed Date [...] as of this encounter (statuses as of 08/11/2024) Immunizations Name Administration Dates Next Due COVID-19 mRNA, LNP-s, No Pre serve, 2-Dose Series (Sproutkin) 10/05/2021,12/15/2020,11/24/2020 Covid-19, Mrna, Lnp-s, Pf, B ivalent, 30 Mcg, IM, 12 yrs and above ([place]kin) 11/11/2022,07/25/2022 PPD 09/16/2023, 3,11/14/2019,11/04 Pneumococcal Conjugate Vacc, [...] 09/02/2023 Does the household have a re gular source of income? (Household - for ages [...] on file documented as of this encounter Last Filed Vital Signs Vital Sign Reading Time Taken Comments Blood Pressure - - Pulse - - Temperature - - Respiratory Rate - - Oxygen Saturation - - Inhaled Oxygen Concentration - - Weight 84.2 kg (185 lb 9.6 oz) 08/11/2024 8:26 A M EDT Height 157.5 cm (5' 2") 08/11/2024 8:26 AM EDT Body Mass Index 33.95 08/11/2024 8:26 AM EDT documented in this encounter Patient Instructions * Patient Instructions* Skyler Morse PA-C - 08/11/2024 8:55 AM EDT Continue with saline irrigation twice a day followed by nasal sprays. If you get dryness/nosebleeds especially after your surgery-- continue using humidifier, add on vaseline to both nares twice a day and saline nasal spray 4 times a day. documented in this encounter Progress Notes * Skyler Morse PA-C - 08/11/2024 8:30 AM EDT 08/11/24 HISTORY OF PRESENT ILLNESS This 69 year old female is seen today in follow up -- cerumen impaction and sinus concerns. Patient is accompanied by self Ears have been bothering her some but wondering if may be sinus related. Right ear feels pressure at times. In the last week or so has had increased nasal congestion and post nasal drip. At times discomfort near ears and under chin she feels from trying to clear the mucous. Zyrtec makes her tired-- she is taking in the morning. Is using nasal irrigations and sprays as directed. From hx: Her symptoms have been present for the last month. Last few nights has had hard time getting to sleep. Notes right sided facial pain and pressure, post nasal drip, throat feels raw as she constantly is clearing her throat, at times pain goes into right ear. She has been using carter selzter plus and tylenol severe sinus which helps. Saw her PCP today who sent in Augmentin. She has been using saline nasal irrigations-- anywhere from once to three times a day. Ears feel full-- set to come back in a few weeks for cerumen. Problem List Patient Active Problem List Diagnosis Date Noted Chronic kidney disease, stage 3a (HCC) [N18.31] 12/14/2023 Per CKD protocol Lumbar disc disease [M51.9] 01/14/2022 Carotid artery aneurysm (HCC) [I72.0] 11/05/2021 Right-sided carotid artery disease (HCC) [I77.9] 04/08/2019 Essential hypertension with goal blood pressure less than 140/90 [I10] 04/08/2019 Type 2 diabetes mellitus with hemoglobin A1c goal of less than 8.0% ([facility]) [E11.9] 01/19/2019 Pure hypercholesterolemia [E78.00] 01/19/2019 Gastroesophageal reflux disease without esophagitis [K21.9] 01/19/2019 Primary osteoarthritis of left knee [M17.12] 01/19/2019 Past Medical History: Diagnosis Date Essential hypertension with goal blood pressure less than 140/90 04/08/2019 GERD (gastroesophageal reflux disease) Hypertension Lumbar disc disease Pure hypercholesterolemia 01/19/2019 Type 2 diabetes mellitus with hemoglobin A1c goal of less than 8.0% ([facility]) 01/19/2019 Past Surgical History: Procedure Laterality Date ARTHROPLASTY KNEE TOTAL Left 2019 REMOVAL OF OVARY(S) REMOVAL OF TONSILS, AGE 12+ REMOVE CATARACT, INSERT LENS PROSTH Right 05/02/2021 RIGHT EXTRACAPSULAR CATARACT REMOVAL WITH INTRAOCULAR LENS performed by Salvador Askew MD at OR [facility] REMOVE CATARACT, INSERT LENS PROSTH Left 05/09/2021 LEFT EXTRACAPSULAR CATARACT REMOVAL WITH INTRAOCULAR LENS performed by Salvador Askew MD at OR [facility] Current Outpatient Medications Medication Sig Dispense Refill aspirin enteric coated 81 MG TBEC Take 1 Tablet by mouth in the morning. Byron Back & Body 500-32.5 MG Oral Tablet (Aspirin-Caffeine) As needed for back pain Vitamin D 50 MCG (2000 UT) Oral Tablet Take by mouth 2,000 Units in the morning. Alive Womens Gummy Oral Tablet Chewable vitafusion gummy - 2 daily Acetaminophen ER 650 MG Oral Tablet Extended Release Take 1 Tablet by mouth every 8 hours as needed. Vitamin C 250 MG Oral Tablet Chewable Take 1 Tablet by mouth in the morning. Unsure of mg . Loratadine 10 MG Oral Tablet (Claritin) Take 1 Tablet by mouth daily as needed. Losartan Potassium 100 MG Oral Tablet (Cozaar) TAKE ONE TABLET BY MOUTH IN THE MORNING 100 Tablet 2 Simvastatin 20 MG Oral Tablet (Zocor) Take 1 Tablet by mouth every night at bedtime. (Patient taking differently: Take 1 Tablet by mouth every morning.) 100 Tablet 3 ProAir HFA 108 (90 Base) MCG/ACT Inhalation Aerosol Solution Inhale 2 puffs by mouth every 4 hours as needed. 18 g 3 Pantoprazole Sodium 40 MG Oral Tablet Delayed Release (Protonix) TAKE ONE TABLET BY MOUTH EVERY DAYIN THE MORNING 100 Tablet 2 Fluticasone Propionate 50 MCG/ACT Nasal Suspension (Flonase) Administer 1 Stevenson into each nostril in the morning and 1 Stevenson before bedtime. 15.8 mL 1 Azelastine HCl 0.1 % Nasal Solution (Astelin) Administer 1 Stevenson into nostril in the morning and 1 Stevenson before bedtime. 30 mL 1 Ondansetron HCl 4 MG Oral Tablet Take 1 Tablet by mouth every 8 hours as needed for Nausea. 30 Tablet 0 hydroCHLOROthiazide 25 MG Oral Tablet (Hydrodiuril) One tablet by mouth 2-3 days per week No current facility-administered medications for this visit. Review of patient's allergies indicates: No Known Allergies Family History Problem Relation Name Age of Onset Thyroid cancer Mother Diabetes Mother Other (overweight) Mother Other (dyslipidemia) Mother Heart failure Mother Heart attack Father Stroke Father Aortic aneurysm No significant family history Denies FH of AAA Social History Social History Tobacco Use Smoking status: Never Passive exposure: Past Smokeless tobacco: Never Tobacco comments: Prior spouses smoked. Substance Use Topics Alcohol use: No Vaping/E-Cigarette Use Vaping/E-Cigarette Use Never User Vaping/E-Cigarette Substances Vaping/E-Cigarette Devices I reviewed the updated past medical history, problem list, past surgical history, social history, family history, allergy and current medication list. ROS General: No recent weight loss/gain. No fatigue. Cardio: No palpitations, chest pain, no orthopnea, or dyspnea on exertion. Lung: No cough, wheezing, sputum or shortness of breath. Nerve: No numbness, weakness of extremities, diplopia, vertigo, mental status change Heme: No easy bruising, bleeding. No fever. No chills. No sweats. Neuro: No memory loss, no weakness, no numbness. Skin: No rash, itching or new/changing lesions. Eyes: No change in vision, redness of the eyes, or ocular pain. ROS otherwise negative unless stated in PMH or HPI. There were no vitals taken for this visit. PHYSICAL EXAMINATION: Gen: Patient is a healthy female and appears her stated age. She is alert, oriented, cooperative and in no acute distress. The patient is mildly obese. She is appropriately conversant and Her voice is normal in character and quality. Face: No facial asymmetry. There was no erythema or edema noted. Facial movement was symmetric without weakness. No skin lesions were detected. Eyes: The pupils are equal round. No scleral icterus. Ears: see below Nose: The septum is non obstructing and the turbinates are without abnormality. No masses, polyps, mucopus, or other lesion are visualized. Oral Cavity: The mucosa is moist without lesion. The hard palate is intact. The soft palate is intact . The occlusion is stable. Tongue is of normal size with normal mobility. Oropharynx: The tonsils are unremarkable. There is no erythema and no exudate on either side. Salivary glands: No visible or palpable abnormalities of the parotid glands or submandibular glandsbilaterally Neck: Thyroid- no thyromegaly. No neck mass to palpation. Lymphatics: No visible or palpable abnormalities of the lymph nodes of the posterior triangle, anterior cervical chain, central neck or submandibular region. Cranial nerves: Cranial nerves II, III, IV, and were noted to be intact via extra-ocular muscle movement testing. Cranial nerve VII noted to be intact and symmetric by facial movement. Cranial nerve VIII was grossly intact (tuning forks not used). Cranial nerves IX and X noted to be intact by gag reflex and palatal movement. Cranial nerve XII noted to be intact by active and symmetric tongue movement. CV/Heart: regular rate Lungs: No audible stridor No increased work of breathing Able to speak in full sentences IN ORDER TO BETTER EXAMINE THE EARS, THE PATIENT WAS EXAMINED USING THE OPERATING MICROSCOPE. FINDINGS ARE NOTED BELOW. Ears: Examination of the ears revealed that the auricles were normally formed with no lesions. The right external auditory canal with few short loose hairs. They were removed using forceps and suction atraumatically by me. The right TM was WNL. The right middle ear space was WNL. The left external auditory canal was impacted with cerumen. It was removed using forceps and suction atraumatically by me. The left TM was WNL. The left middle ear space was WNL ASSESSMENT: 1. Chronic rhinitis 2. Left ear impacted cerumen 3. Post-nasal drip Plan: See below plan: F/U in 6 mo for cerumen removal, sooner PRN. Start taking zyrtec before bed. Pt verbalized understanding and agrees with plan. Questions/Concerns addressed. Patient Goals for plan of care discussed in detail. Patient Instructions Continue with saline irrigation twice a day followed by nasal sprays. If you get dryness/nosebleeds especially after your surgery-- continue using humidifier, add on vaseline to both nares twice a day and saline nasal spray 4 times a day. Skyler Morse PA-C [facility] Otolaryngology - Head and Neck Surgery [place], [place] 08/11/24 I spent a total of 20-29 minutes (exact time 25 mins) on the date of service in preparation, delivery, and documentation of the care provided to Isabel Keane excluding any time spent in the performance of separately billed services or time spent by another provider/QHP. documented in this encounter Nursing Notes * Diann Biggs LPN - 08/11/2024 8:29 AM EDT Chief Complaint Patient presents with Follow Up Patient returns today for recheck of her ears. Pt states her ears have been bothering her, but feels it is sinus related. She is using nasal irrigations and nasal sprays. She states she was taking zyrtec but it was making her tired. She states she does have Claritin. Plan: See below plan: F/U in 4 mo with cerumen, sooner PRN. Pt verbalized understanding and agrees with plan. Questions/Concerns addressed. Patient Goals for plan of care discussed in detail. Patient Instructions -Saline nasal irrigations twice daily with distilled water only, most important to get your nose below level of your mouth -15-20 min following saline irrigation use flonase nasal spray and astelin nasal spray as directed today (point outward toward outer corner of eye/ear on same side). -Take oral antihistamine daily-- zyrtec, claritin, karen, or xyzal -Cool mist humidifier in bedroom overnight -Do all of the above for minimum of 6-8 weeks for maximum benefit -Complete course of Augmentin [facility] Otolaryng[facility] - Head and Neck Surgery [place], [place] 06/23/24 12:17 PM documented in this encounter Plan of Treatment Upcoming Encounters Date Type Department Care Team (Late st Contact Info) Description 09/20/2024 10:00 AM EST Office Visit Urogynecology [facility] [address] [place] [address] Saúl Marie MD [address] [place] [address] 10/18/2024 10:00 AM EST Office Visit Urogynecology [facility] [address] [place] [address] Saúl Marie MD [address] [place] [address] 12/06/2024 3:00 PM EST Office Visit Cardiology, [facility] [address] [place] [address] Bianca Burk CRNP [address] [place] [address] 12/15/2024 1:00 PM EST Office Visit Family Practice [facility] [address] [place] [address] Rakesh Holt DO [address] [place] [id number] 01/10/2025 1:30 PM EDT Imaging Radiology [facility] 1st Floor, [place] [address] [place] [address] 02/03/2025 11:00 AM EDT Office Visit Cardiology, [facility] [address] [place] [address] Bianca Burk CRNP [address] [place] [address] 02/09/2025 10:00 AM EDT Office Visit Otolaryngology [facility] [address] [place] [address] Skyler Morse PA-C [address] [place] [address] Health Maintenance Due Date Last Done Comments CKD PHOS USE SMARTSET 14255 1971 Cologuard 1998 Sigmoidoscopy 1998 Diabetic Foot [...] 08/03/2023, Additional history exists Mammogram 01/07/2025 01/08/2024, 030 06/2024, 01/06/2023, Additional history exists GFR 02/07/2025 08/09/2024, 06/02, 04/07/2024, Additional history exists Diabetic Eye Exam 04/14/2025 04/14/2024, , 04/13/2024, Additional history exists DXA Scan 07/06/2025 07/06/2018 CKD HGB USE SMARTSET 21823 08/09/202508/09, 04/07/2024, 04/07/2024, Additional history exists Colonoscopy [...] this encounter Medical Devices Implanted Type Area Tetryl Screen Operator Device Identifier Shelf Expiration Date Model / Serial / Lot Lens Intraoc 21.0 - [id number] - [id number] Implanted:Qty: 1 on 05/02/2021 by Salvador Askew MD at OR [facility] Right: Eye [employer] 12/30/2025 [id number] / [id number] / [id number] Lens Intraoc 20.5 - [id number] - [id number] Implanted:Qty: 1 on 05/09/2021 by Salvador Askew MD at OR [facility] Left: Eye [employer]OM[employer] 01/30/2026 [id number] / [id number] / documented as of this encounter Visit Diagnoses Diagnosis Chronic rhinitis- Primary Left ear impacted cerumen Impacted cerumen Post-nasal drip Postnasal drip documented in this encounter Care Teams Tube Skiver Relationship Specialty Start Date End Date Rakesh Holt DO [address] [place] [address] PCP - General Family Medicine 11/12/23 documented as of this encounter
[2024-09-02] MEDS: cefOXitin 2,000 MG in DEXTROSE 5 % MINI-B 50 ML IV SCH (11:40)
[2024-09-02] MEDS ORDERED: DEXAMETHASONE SOD INJ 4 MG/ML VIAL ONE (12:01)
[2024-09-02] MEDS ORDERED: ONDANSETRON INJ 2 MG/ML 2 ML VIAL ONE (12:01)
[2024-09-02] MEDS ORDERED: SUGAMMADEX SODIUM 200 MG/2 ML VIAL IV ONE ×3 (13:00→13:56)
[2024-09-02] MEDS: BUPIVACAINE 0.5 % 5 MG/1 ML MPF 30ML VIAL ONE (13:45)
[2024-09-02] MEDS ORDERED: ACETAMINOPHEN 325 MG TAB PO PRN (14:04)
[2024-09-02] MEDS ORDERED: oxyCODONE/ACETAMINOPHEN 5mg/325mg TAB PO PRN ×2 (14:04)
[2024-09-02] MEDS ORDERED: BACLOFEN 10 MG TAB PO PRN (14:06)
[2024-09-02] MEDS ORDERED: busPIRone 7.5 MG TAB PO PRN (14:06)
[2024-09-02] MEDS ORDERED: hydroCHLOROthiazide 25 MG TAB PO PRN (14:06)
[2024-09-02] MEDS: LIDOCAINE 1%/EPINEPHRINE 1:100,000 50 ML VIAL ONE (14:06)
--- NOTE | 2024-09-02 14:08 | Operative Report ---
Post Operative Report Pre & Post Diagnosis Operation Date: 09/02/24 10:50 Pre-Op Diagnosis: Uterovaginal Prolapse Post-Op Diagnosis: Uterovaginal Prolapse I identified the patient and participated in the time-out.: Yes Procedure Operation Date: 09/02/24 10:50 Actual Procedures p Robotic Assisted Hysterectomy, Left Salpingo-Oophorectomy, Robotic Assisted Sacral Colpopexy, Cystoscopy(Not Applicable) - Saúl Marie MD Surgeon Saúl Marie MD Computer Architect Suki Warner PA-C Estimated Blood Loss 25 Findings Consistent with Post-Op Diagnosis Uterovaginal prolapse (grade 3 cystocele grade 2 uterine prolapse, grade 1 rectocele) Cystoscopy: Normal appearing bladder dome,trigone, and urethra. Excellent efflux of ureters bilaterally. Fluids crystalloid Specimens cervix, uterus, left tube and ovary Drains Morales catheter Anesthesia Type General Complications none Disposition Accompanied Patient To Recovery: Yes Disposition: Recovery Room Indications symptomatic uterovaginal prolapse Description of Procedure The patient was identified and the procedure verified. General anesthesia was given by anesthesia service The patient was placed in dorsal lithotomy position, prepped and draped in the usual manner. She was identified, and her procedure was also identified. A Morales catheter was placed into the bladder and the bladder was drained. The cervix was dilated and a medium V-care uterine manipulator was applied to the cervix and uterus.a. An 8mm umbilical incision was made to the skin. The 8 mm trocar was placed through the incision and advanced through the fascia and peritoneum into the abdominal cavity. Inspection of the entry side revealed no adhesions. The abdomen was insufflated with CO2 gas. On the left side of the abdomen, two 8 mm trocars wer placed under direct visualization. On the right, two additional 8 mm trocars were placed under direct visualization. The patient was placed in Trendelenburg position to allow the small bowel to retract out of the pelvis. The robot was docked. The ureters were identified bilaterally. The uterus and the left ovary/tubes appeared normal but the right tube and ovary were surgically absent. The left IP ligament was vessel sealed and transected for excellent hemostasis. The round ligaments were vessel sealed and transected bilaterally. The bladder flap was developed and the uterine vessels were dissected. The uterine vessels were vessel sealed at the level of the cervical cup and transected for excellent hemostasis. The colpotomy incision was made and the cervix and uterus were delivered out the vagina and sent to pathology. The vaginal cuff was closed with 0 V-lock suture in two layers. The bladder was dissected off the anterior vaginal wall. The rectum was dissected off the posterior vaginal wall. The peritoneum over the sacral promontory was incised and extended along the right don-colic gutter with excellent visualization of the right ureter and rectum. The Y mesh was then secured to the anterior and posterior vaginal cates with 2-0 V-Lock suture anteriorly and posteriorly. The tail end of the graft was secured to the anterior longitudinal ligament below the sacral promontory with 2 interrupted sutures of CV-0 [place]-mary. The excess mesh was trimmed and removed. The peritoneum was closed over the mesh with 2-0 V-Lock suture in a running fashion. Excellent hemostasis was confirmed. The robot was undocked. The CO2 gas was allowed to recede and the trocars were removed under direct visualization. The skin incision were closed with 4-0 Monocryl in a subcuticular fashion and dressed with surgical glue. Attention was focused vaginally. Excellent support of the anterior, apical, and posterior vaginal cates was confirmed. The Morales catheter was then removed from the bladder. The urethra and the bladder was scoped with 250 ml of irrigation fluid. Both were within normal limits. Excellent efflux of ureters were demonstrated bilaterally. The bladder was filled with 350 ml of irrigation fluid, the scope was removed. Crede maneuver was performed and and JOAO was not demonstrated. The Morales catheter was placed. The vaginal cuff was intact with good hemostasis. All sponge lap and needle counts were correct. The patient tolerated the procedure well and left the Operating Room in good condition. I attest to the content of the Intraoperative Record and any orders documented therein. Any exceptions are noted below.
--- NOTE | 2024-09-02 15:18 | Anesthesiology Progress Note ---
Date of Service September 02, 2024 Anesthesia Post Procedure Vital Signs Vital Signs: Temp Pulse Pulse Resp BP Pulse Ox O2 Del Method 09/02/24 14:55 70 16 145/79 H 97 Nasal Cannula 09/02/24 14:40 36.4 C L 71 16 131/68 98 Nasal Cannula 09/02/24 14:30 76 16 142/74 H 100 Nasal Cannula 09/02/24 14:20 80 16 126/76 100 Nasal Cannula 09/02/24 14:10 84 16 115/62 98 Nasal Cannula 09/02/24 14:04 36.3 C L 88 16 113/62 99 Nasal Cannula 09/02/24 09:46 36.5 C 89 17 163/94 H 98 Room Air O2 Flow Rate 09/02/24 14:55 2 09/02/24 14:40 2 09/02/24 14:30 2 09/02/24 14:20 2 09/02/24 14:10 4 09/02/24 14:04 4 09/02/24 09:46 Transfer of Care Handoff Completed per policy Notes Mental Status: alert / awake / arousable and participated in evaluation Patient Amnestic to Procedure: Yes Nausea / Vomiting: adequately controlled Pain: adequately controlled Airway Patency, RR, SpO2: stable & adequate BP & HR: stable & adequate Hydration State: stable & adequate Anesthetic Complications: no major complications apparent and Pt Satisfied with anesthetic care
[2024-09-02] MEDS ORDERED: MAGNESIUM OXIDE 400 MG TAB PO PRN (15:45)
[2024-09-02] MEDS: KETOROLAC TROMETHAMINE 15 MG/ML VIAL IV PRN (16:22)
[2024-09-03 03:10] VITALS: O2SAT 95
[2024-09-03] MEDS: PANTOprazole 40 MG TAB PO SCH (05:02)
[2024-09-03 06:28] LABS: Basophils # (auto) 0.01 K/uL (0.00-0.20); Basophils % (auto) 0.1 %; Hematocrit (blood only) 35.2 % (37.0-47.0); Hemoglobin 11.7 g/dl (12.0-16.0); Immature Granulocytes # (auto) 0.02 K/uL (0.01-0.20); Immature Granulocytes % (auto) 0.3 %; Lymphocytes # (auto) 1.25 K/uL (1.20-3.40); Lymphocytes % (auto) 16.8 %; Mean Corpuscular Hemoglobin 28.7 pg (25.0-34.0); Mean Corpuscular Hgb Conc 33.2 g/dL (32.0-36.0); Mean Corpuscular Volume 86.3 fL (80.0-100.0); Mean Platelet Volume 9.3 fL (9.4-12.4); Monocytes # (auto) 0.54 K/uL (0.11-0.59); Monocytes % (auto) 7.3 %; Neutrophils # (auto) 5.62 K/uL (1.40-6.50); Neutrophils % (auto) 75.5 %; Platelet Count 312 K/uL (130-400); RDW Coefficient of Variation 13.5 % (11.5-14.5); RDW Standard Deviation 42.9 fL (36.4-46.3); Red Blood Count 4.08 M/uL (4.20-5.40); White Blood Count 7.44 K/ul (4.8-10.8)
[2024-09-03 06:46] LABS: BUN Creatinine Ratio 18.9 (10-20); Creatinine Clr Calc Pharmacy 46.5 ml/min; Potassium 3.7 mmol/L (3.5-5.1)
[2024-09-03 08:11] VITALS: RESP 16; TEMP 98.2
--- NOTE | 2024-09-03 08:27 | Gynecologic Progress Note ---
Date of Service September 03, 2024 Assessment & Plan (1) Uterovaginal prolapse, incomplete: Plan: Recovering well from surgery. After patient is able to void freely, will discharge home. Discharge instructions reviewed, all questions answered. Follow up in 2 weeks and 6 weeks. Present on Admission?: Yes Admission and Anticipated Discharge Date Admission Date: September 02, 2024 Anticipated date of discharge: 09/03/24 Subjective Feeling well, pain well controlled, denies fever, SOB, CP, or nausea Review of Systems Review of Systems: All systems reviewed & are unremarkable except as noted in HPI & below Physical Exam Constitutional: WD/WN, vitals as above Eyes: PERRL, conjunctivae normal, anicteric sclerae ENMT: external ear and nose normal, oropharynx normal Neck: trachea midline, no thyromegaly Respiratory: normal respiratory effort Cardiovascular: Rate/Rhythm: regular rate Gastrointestinal (Abdomen): Inspection/Auscultation: abdomen normal to inspection Soft, Non tender, Non distended. Incisions clean dry and intact Musculoskeletal: no cyanosis or clubbing, extremities motor strength 5/5 Non tender calves Skin: no rashes, warm and dry Psychiatric: A+Ox3, euthymic affect Results & Data Vital Signs (Past 12 Hours) Vital Signs Temp Pulse Pulse Resp BP BP Pulse Ox 09/03/24 07:24 36.8 C 83 16 141/74 H 95 09/03/24 03:08 36.9 C 88 18 145/72 H 95 09/02/24 23:09 37.1 C 99 H 18 127/85 94 O2 Del Method 09/03/24 07:24 Room Air 09/03/24 03:08 Room Air 09/02/24 23:09 Room Air
--- OUTSIDE RECORDS SUMMARY | 2024-09-03 08:36 | External Medical Summary | Summary of Care ---
Author Name Unknown Organization [facility] Address [address] [place] [address] Phone [phone] Care Team Providers Care Flake Or Shred Roll Operator Name Role Phone Rakesh Holt Primary Care Provider Encounter Details Date Type Department Care Team (Late st Contact Info) Description 09/02/2024 Result Scan Unspecified Department <No scans attached> Allergies No known active allergiesdocumented as of this encounter (statuses as of 09/02/2024) Medications Medication Sig Dispensed Refills Start Date [...] Active Additional Information Patient taking differently:20 mg [id number], Reported on 05/23/2024 ProAir HFA 108 (90 [...] Active Fluticasone Propionate 50 MCG/ACT Nasal Suspension (Flonase)Indications:[employer] wendy rhinitis,Post-nasal drip Administer 1 Hollister into each nostril in the morning and 1 Hollister before bedtime. 15.8 mL 1 4 Active Azelastine HCl 0.1 % Nasal Solution (Astelin)Indications:[employer] wendy rhinitis,Post-nasal drip Administer 1 Hollister into nostril in the morning and 1 Hollister before bedtime. 30 mL 1 4 Active Ondansetron HCl 4 MG Oral TabletIndications:Nausea Take 1 Tablet by mouth every 8 hours as needed for Nausea. 30 Tablet 4 Active hydroCHLOROthiazide 25 MG Oral Tablet (Hydrodiuril)Indications: Essential hypertension with goal blood pressure less than 140/90 One tablet by mouth 2-3 days per week 4 Active documented as of this encounter (statuses as of 09/02/2024) Active Problems Problem Noted Date Diagnosed Date [...] as of this encounter (statuses as of 09/02/2024) Immunizations Name Administration Dates Next Due COVID-19 mRNA, LNP-s, No Pre serve, 2-Dose Series ([employer]) 10/05/2021,12/15/2020,11/24/2020 Covid-19, Mrna, Lnp-s, Pf, B ivalent, [...] y our heating, water, or electric bill? (Adult - for ages 18 years and over) Not on file 09/02/2024 Is your family able to pay t he heat, water, or electric bill? (Household - for ages 0-17 years) Not on file 09/02/2024 Does your family have access to good internet? (Household - for ages 0-17 years) Not on file 09/02/2024 Employment Status Answer Date Recorded Are you unemployed or without regular income? No 09/02/2023 Does the household have a re lar source of income? (Household - for ages 0-17 years) Not on file 09/02/2023 Social Connections Answer Date Recorded How often do you feel lonely or isolated from those around you? (Adult - for ages 18 years and over) Not on file 09/02/2024 Financial Resource Strain Answer Date R ecorded [...] 09/20/2024 10:00 AM EST [facility] [address] [place] [address] Saúl Marie MD [address] [place] [address] 10/18/2024 10:00 AM EST Office Visit Urogynecology [facility] [address] [place] [address] Saúl Marie MD [address] [place] [address] 12/06/2024 3:00 PM EST Office Visit Cardiology, [facility] [address] [place] [address] Bianca Burk CRNP [address] [place] [address] 12/15/2024 1:00 PM EST Office Visit Family Practice [facility] [address] [place] [address] Rakesh Holt DO [address] [place] [address] 01/10/2025 1:30 PM EDT Imaging Radiology [facility] 1st Floor, [place] [address] [place] [address] 02/03/2025 11:00 AM EDT Office Visit Cardiology, [facility] [address] [place] [address] Bianca Burk CRNP [address] [place] [address] 02/09/2025 10:00 AM EDT Office Visit Otolaryngology [facility] [address] [place] [address] Skyler Morse PA-C [address] [place] [address] Health Maintenance Due Date Last Done Comments CKD PHOS USE SMARTSET 97942 1971 Cologuard 1998 Sigmoidoscopy 1998 Diabetic Foot [...] 08/03/2023, Additional history exists Mammogram 01/07/2025 01/08/2024, 03/0 06/2024, 01/06/2023, Additional history exists GFR 02/07/2025 08/09/2024, 06/02, 04/07/2024, Additional history exists Diabetic Eye Exam 04/14/2025 04/14/2024, , 04/13/2024, Additional history exists DXA Scan 07/06/2025 07/06/2018 CKD HGB USE SMARTSET 16334 08/09/202508/09, 04/07/2024, 04/07/2024, Additional history exists Colonoscopy [...] this encounter Medical Devices Implanted Type Area Cloud Physicist Device Identifier Shelf Expiration Date Model / Serial / Lot Lens Intraoc 21.0 - [id number] - [id number] Implanted:Qty: 1 on 05/02/2021 by Salvador Askew MD at [facility] Right: Eye [employer] 12/30/2025 [id number] / [id number] / [id number] Lens Intraoc 20.5 - [id number] - [id number] Implanted:Qty: 1 on 05/09/2021 by Salavdor Askew MD at [facility] Left: Eye [employer] 01/30/2026 [id number] / [id number] / documented as of this encounter Procedures Procedure Name Priority Date/Time Associated Diagnosis Comments OUTSIDE LAB RESULTS 09/02/2024 documented in this encounter Results * OUTSIDE LAB RESULTS (09/02/2024) 09/02/2024 No Physician Data Unknown LABORATORY documented in this encounter Care Teams Flake Or Shred Roll Operator Relationship Specialty Start Date End Date Rakesh Holt DO [address] [place] [id number] PCP - General Family Medicine 11/12/23 documented as of this encounter
--- NOTE | 2024-09-03 08:37 | Discharge Summary ---
Date of Service September 03, 2024 Admission HPI Per Admitting Provider Isabel Keane complains of vaginal bulge. She was using a pessary but removed it about 2 months ago because of discomfort and bleeding. Since removing it, the pain and bleeding has resolved. She reports urinary urgency and urge incontinence before she can to the toilet in time. Less often, she may have JOAO with coughing or sneezing. Admission Exam (Per Admitting) Constitutional WD/WN, vitals as above Eyes PERRL, conjunctivae normal, anicteric sclerae ENMT external ear and nose normal, oropharynx normal Neck trachea midline, no thyromegaly Respiratory normal respiratory effort Cardiovascular Rate/Rhythm: regular rate Gastrointestinal (Abdomen) Inspection/Auscultation: abdomen normal to inspection Musculoskeletal no cyanosis or clubbing, extremities motor strength 5/5 Skin no rashes, warm and dry Psychiatric A+Ox3, euthymic affect Discharge Data Procedures Performed Operation Date: 09/02/24 10:50 Actual Procedures p Robotic Assisted Hysterectomy, Bilateral Salpingo-Oophorectomy, Robotic Assisted Sacral Colpopexy, Cystoscopy(Not Applicable) - Saúl Marie MD Hospital Course (1) Uterovaginal prolapse, incomplete: Recovering well from surgery. After patient is able to void freely, will discharge home. Discharge instructions reviewed, all questions answered. Follow up in 2 weeks and 6 weeks.
[2024-09-03] MEDS: LOSARTAN POTASSIUM 50 MG TAB PO SCH (08:52)
[2024-09-03] MEDS: SIMVASTATIN 20 MG TAB PO SCH (08:52)
[2024-09-03] MEDS: IBUPROFEN 600 MG TAB PO PRN (08:57)
[2024-09-03 10:27] VITALS: BP 145/72; PULSE 89
== END 2024-09-03 11:27 | disposition home or self-care (01) ==
LOC: 4E1 09:03 → ASU 09:03

== ENCOUNTER 2025-07-05 23:35 | Observation (INO) ==
--- NOTE | 2025-07-06 00:32 | Emergency Department Note ---
Impression & Plan Acute cholecystitis Admission ED Provider Note HPI: History obtained from patient. The patient is a 70-year-old female who presents the emergency department with a chief complaint of right flank pain and right upper quadrant abdominal pain. Patient states she has had this pain since about 5 PM last evening. Patient denies any vomiting, she denies any chest pain or shortness of breath. On arrival here to the ED the patient is mildly hypertensive and mildly tachycardic but otherwise hemodynamically stable. She appears to be in no acute distress. ROS: - Per HPI Differential Diagnosis: Acute cholecystitis, biliary colic, pyelonephritis, kidney stone, acute pancreatitis, acute gastritis, amongst other potential pathologies. *Outpatient medications and allergy history reviewed. PE: General: Alert HEENT: Normocephalic, trachea midline Eyes: Extraocular eye movement is intact, no scleral erythema Pulmonary: Clear to auscultation bilaterally, no wheezing Cardio: Regular rate and rhythm GI: Abdomen is soft to palpation, there is tenderness in the right upper quadrant to palpation without guarding or rigidity : No suprapubic tenderness MSK: No evidence of trauma or malformation of the extremities, no edema Skin: No evidence of rash Neuro: Alert, no focal deficits Psychiatric: Cooperative INDEPENDENT INTERPRETATIONS: director talent: (As interpreted by myself): - An order was placed for continuous cardiac monitoring - Patient was noted to be in sinus rhythm with a rate of 90 EKG: (As interpreted by myself): Rate: 92 Rhythm: Normal sinus rhythm Intervals: Within normal limits ST changes: No ST elevation Time: 0009 Interventions provided in ED: - IV fluid bolus, patient declined analgesia Medical Decision Making: IV was established and lab work obtained, patient was placed on cardiac cath technician. Lab work shows no leukocytosis, hemoglobin is normal, platelet count is normal, CMP does not show any evidence of any critical findings, bilirubin is normal, there is no transaminitis. Urinalysis does not show any evidence of any obvious infection. CT imaging of the abdomen and pelvis was obtained given the patient's right upper quadrant abdominal pain and right flank pain. This shows some nonspecific finding within the gallbladder of some hyperdensity along the neck. Ultrasound imaging was recommended per the interpreting radiologist. This was ordered and is suggestive of early acute cholecystitis. I explained all of the above to the patient, she remained stable appearing on my reassessment, she states her pain is improved from previous. General surgery was consulted given findings on ultrasound imaging concerning for acute cholecystitis. Patient was evaluated at the bedside by Jerome Alejo PA-C. Patient was staffed with the attending general surgeon, Dr. Esme Pan, plan will be for admission to the medicine service following discussion with general surgery given her medical issues and they will plan for definitive operative management following admission. Case was then discussed with the on-call hospitalist, Dr. Garay, and the patient was placed for admission in stable condition. Consultants/Discussions held with other healthcare providers: - General Surgery, Dr. Esme Pan - Hospitalist, Dr. Garay Disposition discussion held by myself with: - Patient Diagnosis: 1. Acute cholecystitis 2. Abdominal pain, acute, right upper quadrant 3. Hypertension, established Disposition: Admission Dez Zelaya DO Emergency Medicine Past Med/Surg History Problem List (Updated 07/06/25 @ 05:30 by Dez Zelaya DO) Acute cholecystitis (Acute) Cholecystitis Traumatic arthritis of shoulder region Chronic knee pain after total replacement of left knee joint Left knee pain Sacroiliitis Osteoarthritis of right knee Cervical facet joint syndrome Bilateral knee pain Myofascial pain Chronic rhinitis Hypertrophy of both inferior nasal turbinates Subacute sinusitis Irritability Eructation Cystocele with rectocele Right internal carotid artery aneurysm Carotid artery plaque Biceps tendinitis of left shoulder Strain of left knee Lumbar facet joint syndrome Vitamin D deficiency (Acute) Prolapse of female pelvic organs Incontinence Hypertension (Chronic) Diabetes mellitus (Chronic) Palpitations (Acute) Lumbar radiculopathy Osteoarthritis of left knee History of hepatitis C DIAGNOSED 2006; S/P TREATMENT X 1 YEAR- REPEAT TESTING HAS UNDETECTABLE VIRAL LOAD Depressive disorder Dyslipidemia (Chronic) GERD (gastroesophageal reflux disease) (Chronic) CONTROLLED Medical History Fibromuscular dysplasia Mild fibromuscular dysplasia in the cervical ICAs Hx of Clostridium difficile infection (2014) ~ 10 years, treated Traumatic arthritis of shoulder region Chronic knee pain 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 reports no neck pain, full rom Vitamin D deficiency Incontinence occ. with coughing- has improved since bladder surgery 09/25; also has occ bowel incontinence GERD (gastroesophageal reflux disease) controlled, stable per pt Depressive disorder denies current Cystocele with rectocele Chronic rhinitis Dyslipidemia History of hepatitis C diagnosed 2006; s/p treatment x 1 year-states repeat testing showed undetectable viral load Carotid artery plaque <50% stenosis B/L ICA per most recent (2018 Doppler); follows with [facility] Right internal carotid artery aneurysm follows with [facility]; most recent visit: 06/14/24: per note "unchanged R carotid ectasia/aneurysm: 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 states does not need to see docotor again until 2024 History of postoperative nausea and vomiting Obesity Diabetes no medications- had been on metformin in past, now no longer taking x 4 years Spinal stenosis with lumbar radiculopathy; follows with pain clinic and sees chriopractor, pt. is having SI Joint injection on 06/12/25 (states dr. caicedo aware and ok with this) Osteoarthritis Hearing deficit hearing aids History of anxiety Hypertension Surgical History S/P hysterectomy (09/02/24) with bladder tac History of bilateral cataract extraction (2021) History of left oophorectomy History of total left knee replacement (TKR) (01/2019) History of esophagogastroduodenoscopy (EGD) (2018) 12/29/18= MAC sedation at [facility] H/O carpal tunnel repair (1999) B/L History of bilateral tubal ligation History of tooth extraction History of colonoscopy History of tonsillectomy (1984) History of hysteroscopy pt states she does not remember this surgery History of dilatation and curettage Family History Mother Diabetes Coronary heart disease Chronic systolic congestive heart failure Father Coronary heart disease Myocardial infarction Hypertension Stroke Other No family history of adverse response to anesthesia Denies family history of Ovarian cancer Prostate cancer Breast cancer Colorectal cancer Social History Smoking Status: Never smoker Second Hand Exposure: No; Do You Dip or Chew Tobacco: No; Hx Alcohol Use: No Hx Substance Use: No Preferred Language: Faroese Communication Ability: Effective Visual Impairment: No Limitations Hearing Ability: Use of Hearing Aid Councilor Required: No Beliefs That Will Affect Care: None marital status: / Current Living Situation: Alone Current Living Situation Comment: DAUGHTER LIVES WITH PT current occupational status: retired Feels Safe at Home: Yes Childhood Exposure to Second-Hand Smoke: No Diet: regular caffeine: No Dental Care, Regularly: Yes Physical Activity Frequency: Daily Seatbelt Use: always Sunscreen Use: No Assistive Devices: Glasses and Hearing Aid - Bilateral Allergies Allergies Allergy/AdvReac Type Severity Reaction Status Date / Time amoxicillin AdvReac Mild YEAST Verified 06/12/25 10:58 INFECTION Home Meds Home Medications Medication Instructions Recorded Confirmed fluticasone propionate 50 2 sprays intranasal DAILY PRN 08/03/19 07/06/25 mcg/actuation nasal Allergy Symptoms spray,suspension cholecalciferol (vitamin D3) 25 1,000 unit PO QAM 08/15/22 07/06/25 mcg (1,000 unit) chewable tablet (Vitamin D3) desonide 0.05 % topical cream 1 applic topical BID PRN Rash 08/15/22 07/06/25 multivitamin 2 tab PO QAM 08/15/22 07/06/25 azelastine 137 mcg (0.1 %) nasal 1 spray intranasal BID PRN Allergy 07/06/24 07/06/25 spray Symptoms simvastatin 20 mg tablet 20 mg PO QAM 07/06/24 07/06/25 aspirin 81 mg tablet,delayed 81 mg PO QAM 08/24/24 07/06/25 release (Ecotrin Low Strength) aspirin-caffeine 500 mg-32.5 mg 1 tab PO UD PRN Pain 08/24/24 07/06/25 tablet (Byron Back and Body) loratadine-pseudoephedrine ER 10 1 tab PO QAM PRN allergies 08/24/24 07/06/25 mg-240 mg tablet,extended [id number] (Claritin-D 24 Hour) pantoprazole 40 mg tablet,delayed 20 mg PO QAM 12/21/24 07/06/25 release guar gum 1 gram tablet 1 g PO DAILY PRN Constipation 06/07/25 07/06/25 phenylephrine-acetaminophen 5 1 tab PO QID PRN allergies 06/07/25 07/06/25 mg-325 mg tablet (Tylenol Sinus Headache) Previous Rx's Medication Instructions Recorded losartan 100 mg tablet 100 mg PO QAM #90 tabs 04/08/21 ondansetron HCl 4 mg tablet 4 mg PO Q8H PRN nausea and 10/08/21 (Zofran) vomiting #30 tabs Results & Data (ED) Vital Signs Vital Signs - 24 hr 07/05/25 23:39 07/06/25 01:11 07/06/25 02:14 Temperature 36.7 C Temperature Source Oral Pulse Rate 109 H Pulse Rate [Finger] 78 85 Pulse Rhythm [Finger] Pulse Strength [Finger] Respiratory Rate 22 18 18 Respiratory Effort / Characteristics Non-Labored Spontaneous Respiratory Depth Normal Respiratory Pattern Regular Blood Pressure 147/85 H Blood Pressure [Right Arm] 142/93 H 152/65 H Blood Pressure Mean 105 Blood Pressure Mean [Right Arm] 109 94 Blood Pressure Position [Right Arm] Pulse Oximetry 96 94 95 Oxygen Delivery Method Room Air Room Air Room Air Sepsis Recent Fever Within 48 Hours No Sepsis New/Unexplained Change in Mental Status No Sepsis Action Taken by Nursing No Action Required 07/06/25 04:00 07/06/25 04:22 07/06/25 05:00 Temperature Temperature Source Pulse Rate 75 Pulse Rate [Finger] 76 89 Pulse Rhythm [Finger] Regular Regular Pulse Strength [Finger] Normal Normal Respiratory Rate 20 20 Respiratory Effort / Characteristics Non-Labored Spontaneous Non-Labored Spontaneous Respiratory Depth Normal Normal Respiratory Pattern Regular Regular Blood Pressure Blood Pressure [Right Arm] 177/100 H 199/102 H Blood Pressure Mean Blood Pressure Mean [Right Arm] 125 134 Blood Pressure Position [Right Arm] Lying Lying Pulse Oximetry 97 98 Oxygen Delivery Method Room Air Room Air Sepsis Recent Fever Within 48 Hours Sepsis New/Unexplained Change in Mental Status Sepsis Action Taken by Nursing Laboratory Data 07/06/25 00:15 07/06/25 00:15 Lab Results 07/06/25 07/06/25 Range/Units 00:15 00:53 WBC 5.11 (4.8-10.8) K/ul RBC 4.32 (4.20-5.40) M/uL Hgb 12.6 (12.0-16.0) g/dl Hct 38.2 (37.0-47.0) % MCV 88.4 (80.0-100.0) fL MCH 29.2 (25.0-34.0) pg MCHC 33.0 (32.0-36.0) g/dL RDW Std Deviation 44.2 (36.4-46.3) fL RDW Coeff of Ray 13.5 (11.5-14.5) % Plt Count 266 (130-400) K/uL MPV 9.1 L (9.4-12.4) fL Immature Gran % (Auto) 0.2 % Neut % (Auto) 77.7 % Lymph % (Auto) 14.9 % [place] % (Auto) 6.8 % Eos % (Auto) 0.2 % Baso % (Auto) 0.2 % Neut # (Auto) 3.97 (1.40-6.50) K/uL Lymph # (Auto) 0.76 L (1.20-3.40) K/uL [place] # (Auto) 0.35 (0.11-0.59) K/uL Eos # (Auto) 0.01 (0.00-0.50) K/uL Baso # (Auto) 0.01 (0.00-0.20) K/uL Immature Gran # (Auto) 0.01 (0.01-0.20) K/uL Sodium 140 (136-145) mmol/L Potassium 3.9 (3.5-5.1) mmol/L Chloride 108 H (98-107) mmol/L Carbon Dioxide 25 (21-32) mmol/L Anion Gap 7 (3-11) BUN 24 H (6-23) mg/dl Creatinine 1.12 (0.6-1.2) mg/dl Est Cr Clr Drug Dosing 44.4 ml/min eGFR 52.25 BUN/Creatinine Ratio 21.4 H (10-20) Glucose 149 H (70-99(Fasting)) mg/dl Calcium 9.4 (8.6-10.3) mg/dl Total Bilirubin 0.3 (0.2-1.0) mg/dl AST 20 (13-39) U/L ALT 19 (7-52) U/L Alkaline Phosphatase 63 (34-104) U/L Total Protein 7.3 (6.0-8.3) gm/dl Albumin 4.2 (3.4-5.0) gm/dl Globulin 3.1 (2.5-4.0) gm/dl Albumin/Globulin Ratio 1.4 (0.9-2) Lipase 18 (11-82) U/L Urine Color Yellow Urine Appearance Cloudy A (Clear) Urine pH 5.0 (4.5-7.5) Ur Specific [place] 1.032 H (1.000-1.030) Urine Protein Trace H (Negative) Urine Glucose (UA) Negative (Negative) Urine Ketones Trace H (Negative) Urine Blood Negative (Negative) Urine Nitrite Negative (Negative) Urine Bilirubin Negative (Negative) Urine Urobilinogen Negative (Negative) Ur Leukocyte Esterase Negative (Negative) Urine WBC (Auto) 0-5 (0-5) /hpf Urine RBC (Auto) 0-2 (0-2) /hpf U Hyaline Cast (Auto) 3-5 H (0-2) /lpf U Epithel Cells (Auto) 0-2 (0-2) /hpf Urine Bacteria (Auto) None Seen (None Seen) Urine Comment Administered Medications Discontinued Medications Sodium Chloride (Nss) 500 mls @ 999 mls/hr IV .Q31M ONE Stop: 07/06/25 01:01 Last Infusion: 07/06/25 01:25 Dose: Infused Documented By: Admin: 07/06/25 00:47 Dose: 999 mls/hr Documented By: JACQUE Ioversol (Optiray 320 100ml) 100 ml IV ONCE ONE Stop: 07/06/25 01:24 Last Admin: 07/06/25 01:23 Dose: 93 ml Documented By: AMBROSIO Imaging Data Radiologist's Impression: Abdomen/Pelvis CT 07/06/25 00:31 EXAM: CT abd pelvis IV con only CLINICAL HISTORY: RUQ pain TECHNIQUE: Multiple contiguous axial images were obtained from the level of diaphragm to the pubis symphysis. This study was acquired after the IV administration of iodinated contrast material, given the patient's indications for the examination. If IV contrast material had not been administered, the likelihood of detecting abnormalities relevant to the patient's condition would have been substantially decreased. Coronal and sagittal reformatted images were generated and reviewed to improve anatomic localization and optimize lesion detection. CT scan was performed according to ALARA (as low as reasonably achievable). COMPARISON: CT, 06/15/2020 06:36:23 CONTRACT ADMINISTRATION MANAGER FINDINGS: The visualized lung bases are clear. ABDOMEN/PELVIS: The liver is normal in size and attenuation. No focal liver lesions are seen. There is no intra or extrahepatic biliary ductal dilatation. Hepatic vasculature is patent. The gallbladder is unremarkable. Layered hyperdensity seen along neck of gall bladder- advised ultrasound correlation. The spleen and adrenal glands are unremarkable. Fatty infiltration of pancratic head. The kidneys are normal in size and attenuation. There is no hydronephrosis or perinephric fat stranding. No renal calculi or renal masses are identified. A subcentimetric simple cortical cyst at lower interpolar region of right kidney. The ureters are normal in caliber and no ureteral calculi are seen. The bladder is minimaly filled. Post hysterectomy status. No evidence of focal or diffuse bowel wall thickening or evidence of bowel obstruction is seen. Multiple small diverticuli of 2mm seen in sigmoid colon. No inflammatory changes. The appendix is visualized in the right lower quadrant and appears within normal limits. No adenopathy or fluid collections are seen. The aorta is normal in caliber. No aggressive appearing osseous lesions are identified. Anterolisthesis of L4 over L5 present. Small fat containing umbilical hernia, IMPRESSION: 1. No acute intra-abdominal pathology detected. 2. Layered hyperdensity seen along neck of gall bladder- new finding. Advised ultrasound correlation. 3. Fatty infiltration of pancratic head- Interval increase. 4. Uncomplicated sigmoid colon diverticulosis- Stable. 5. Stable Small fat containing umbilical hernia, Electronically signed by Flex Camara 07-06-2025 02:05 AM Gallbladder Ultrasound 07/06/25 02:10 EXAM: US gallbladder CLINICAL HISTORY: Abnormal layering in the neck of the GB on CT TECHNIQUE: Ultrasound examination of the RUQ was performed in real-time. COMPARISON: 07/06/2025 CT and 02/20/2021 US FINDINGS: Limited study due to the patient's habitus. Liver: Liver size: 14 cm. Geographic hyperechogenicity in the liver, measuring 1.4 x 2 x 1 cm, is likely correlated to geographic hypodensity on the CT scan at segment IV and is likely representing focal fatty infiltration. Hepatic vasculature appears normal. Gallbladder: The gallbladder is visualized and appears distended with a bulging anterior border beyond the hepatic border (Image #[id number]). Tiny echogenic foci are noted along the dependent portion of the gallbladder with no definite shadowing detected, which could be tiny stones with small sludge formation. Mildly thickened gallbladder wall, measuring 3.5 mm. A trace of pericholecystic fluid is noted. Inability to assess the Ball's sign due to prior pain medications. Biliary Tree: Common bile duct diameter: 5.2 mm. The common bile duct is within normal limits in caliber and not dilated. No evidence of choledocholithiasis or biliary obstruction. Right Kidney: The right kidney appears normal in size with preserved corticomedullary differentiation. Right lower pole renal cyst measuring 1.3 cm. No evidence of right-sided hydronephrosis. No definite right renal masses. Pancreas: Limited views of the pancreas show increased echogenicity with no definite masses. IMPRESSION: 1. Distended gallbladder with tiny dependent likely gallstones, mildly thickened gallbladder wall with a trace of pericholecystic fluid. Sonographic features of hydrops gallbladder with an early acute cholecystitis. Clinical and lab correlation (CRP) is advised for confirmation. (The gallbladder wall thickening and a trace of pericholecystic fluid are more conspicuous on the ultrasound study than the previous CT scan, and are a new finding since the previous ultrasound scan) 2. The CBD is not dilated. Unchanged. 3. Redemonstration of hepatic likely focal fatty infiltration. Mildly increased in size since the 2020 ultrasound scan. RECOMMENDATIONS: Clinical correlation with symptoms and further evaluation as indicated. Electronically signed by Chris Herrera 07-06-2025 04:34 AM Discharge Plan Visit Data Chief Complaint: Rib Injury/Pain Stated Complaint: PAIN IN RIGHT SIDE UPPER SIDE ED Provider: Dez Zelaya Discharge Problem: Acute cholecystitis Patient Disposition: Admitted As Inpatient Condition: Fair Forms Stand Alone Forms: [facility] Prescriptions Prescriptions: No Action simvastatin 20 mg tablet 20 mg PO QAM azelastine 137 mcg (0.1 %) spray,non-aerosol 1 spray intranasal BID PRN (Reason: Allergy Symptoms) losartan 100 mg tablet 100 mg PO QAM Qty: 90 3RF ondansetron HCl [Zofran] 4 mg tablet 4 mg PO Q8H PRN (Reason: nausea and vomiting) Qty: 30 0RF fluticasone propionate 50 mcg/actuation spray,suspension 2 sprays INTNAS DAILY PRN (Reason: Allergy Symptoms) desonide 0.05 % cream 1 applic TOP BID PRN (Reason: Rash) multivitamin Tablet 2 tab PO QAM cholecalciferol (vitamin D3) [Vitamin D3] 25 mcg (1,000 unit) tablet,chewable 1,000 unit PO QAM aspirin [Ecotrin Low Strength] 81 mg tablet,delayed release (DR/EC) 81 mg PO QAM Claritin-D 24 Hour 10-240 mg Tablet Extended Release 24 Hr 1 tab PO QAM PRN (Reason: allergies) Byron Back and Body 500-32.5 mg Tablet 1 tab PO UD PRN (Reason: Pain) pantoprazole 40 mg tablet,delayed release (DR/EC) 20 mg PO QAM Benefiber (guar gum) 1 gram Tablet 1 g PO DAILY PRN (Reason: Constipation) Tylenol Sinus Headache 5-325 mg Tablet 1 tab PO QID PRN (Reason: allergies) Referrals Referrals: Rakesh Holt DO [Primary Care Provider] -
[2025-07-06 00:44] LABS: Hematocrit (blood only) 38.2 % (37.0-47.0); Hemoglobin 12.6 g/dl (12.0-16.0); Immature Granulocytes # (auto) 0.01 K/uL (0.01-0.20); Immature Granulocytes % (auto) 0.2 %; Mean Corpuscular Hemoglobin 29.2 pg (25.0-34.0); Mean Corpuscular Volume 88.4 fL (80.0-100.0); Platelet Count 266 K/uL (130-400); RDW Standard Deviation 44.2 fL (36.4-46.3); Red Blood Count 4.32 M/uL (4.20-5.40); White Blood Count 5.11 K/ul (4.8-10.8)
[2025-07-06] MEDS: SODIUM CHLORIDE 0.9% 500 ML IV ONE (00:47)
[2025-07-06 01:01] LABS: Alanine Aminotransferase 19.0 U/L (7-52); Albumin Globulin Ratio 1.4 (0.9-2); Alkaline Phosphatase 63.0 U/L (34-104); Anion Gap 7.0 (3-11); Bilirubin,Total 0.3 mg/dl (0.2-1.0); Blood Urea Nitrogen 24.0 mg/dl (6-23); Calcium 9.4 mg/dl (8.6-10.3); Carbon Dioxide 25.0 mmol/L (21-32); Chloride 108.0 mmol/L (98-107); Creatinine Clr Calc Pharmacy 44.4 ml/min; Globulin 3.1 gm/dl (2.5-4.0); Glucose 149.0 mg/dl (70-99(Fasting)); Lipase 18.0 U/L (11-82); Potassium 3.9 mmol/L (3.5-5.1); Sodium 140.0 mmol/L (136-145); Total Protein 7.3 gm/dl (6.0-8.3)
[2025-07-06 01:03] LABS: Appearance Urine Cloudy (Clear); Bacteria Urine Automated None Seen (None Seen); Epithelial Cell Urine Auto 0-2 /hpf (0-2); Glucose Urine UA Negative (Negative); RBC Urine Automated 0-2 /hpf (0-2); WBC Urine Automated 0-5 /hpf (0-5)
[2025-07-06] MEDS: OPTIRAY 320 100ml IV ONE (01:23)
--- NOTE | 2025-07-06 02:06 | CT Scan Report ---
EXAM: CT abd pelvis IV con only CLINICAL HISTORY: RUQ pain TECHNIQUE: Multiple contiguous axial images were obtained from the level of diaphragm to the pubis symphysis. This study was acquired after the IV administration of iodinated contrast material, given the patient's indications for the examination. If IV contrast material had not been administered, the likelihood of detecting abnormalities relevant to the patient's condition would have been substantially decreased. Coronal and sagittal reformatted images were generated and reviewed to improve anatomic localization and optimize lesion detection. CT scan was performed according to ALARA (as low as reasonably achievable). COMPARISON: CT, 06/15/2020 06:36:23 PANTOGRAPH OPERATOR FINDINGS: The visualized lung bases are clear. ABDOMEN/PELVIS: The liver is normal in size and attenuation. No focal liver lesions are seen. There is no intra or extrahepatic biliary ductal dilatation. Hepatic vasculature is patent. The gallbladder is unremarkable. Layered hyperdensity seen along neck of gall bladder- advised ultrasound correlation. The spleen and adrenal glands are unremarkable. Fatty infiltration of pancratic head. The kidneys are normal in size and attenuation. There is no hydronephrosis or perinephric fat stranding. No renal calculi or renal masses are identified. A subcentimetric simple cortical cyst at lower interpolar region of right kidney. The ureters are normal in caliber and no ureteral calculi are seen. The bladder is minimaly filled. Post hysterectomy status. No evidence of focal or diffuse bowel wall thickening or evidence of bowel obstruction is seen. Multiple small diverticuli of 2mm seen in sigmoid colon. No inflammatory changes. The appendix is visualized in the right lower quadrant and appears within normal limits. No adenopathy or fluid collections are seen. The aorta is normal in caliber. No aggressive appearing osseous lesions are identified. Anterolisthesis of L4 over L5 present. Small fat containing umbilical hernia, IMPRESSION: 1. No acute intra-abdominal pathology detected. 2. Layered hyperdensity seen along neck of gall bladder- new finding. Advised ultrasound correlation. 3. Fatty infiltration of pancratic head- Interval increase. 4. Uncomplicated sigmoid colon diverticulosis- Stable. 5. Stable Small fat containing umbilical hernia, Electronically signed by Flex Camara 07-06-2025 02:05 AM
--- NOTE | 2025-07-06 04:35 | Ultrasound Report ---
EXAM: US gallbladder CLINICAL HISTORY: Abnormal layering in the neck of the GB on CT TECHNIQUE: Ultrasound examination of the RUQ was performed in real-time. COMPARISON: 07/06/2025 CT and 02/20/2021 US FINDINGS: Limited study due to the patient's habitus. Liver: Liver size: 14 cm. Geographic hyperechogenicity in the liver, measuring 1.4 x 2 x 1 cm, is likely correlated to geographic hypodensity on the CT scan at segment IV and is likely representing focal fatty infiltration. Hepatic vasculature appears normal. Gallbladder: The gallbladder is visualized and appears distended with a bulging anterior border beyond the hepatic border (Image #[id number]). Tiny echogenic foci are noted along the dependent portion of the gallbladder with no definite shadowing detected, which could be tiny stones with small sludge formation. Mildly thickened gallbladder wall, measuring 3.5 mm. A trace of pericholecystic fluid is noted. Inability to assess the Ball's sign due to prior pain medications. Biliary Tree: Common bile duct diameter: 5.2 mm. The common bile duct is within normal limits in caliber and not dilated. No evidence of choledocholithiasis or biliary obstruction. Right Kidney: The right kidney appears normal in size with preserved corticomedullary differentiation. Right lower pole renal cyst measuring 1.3 cm. No evidence of right-sided hydronephrosis. No definite right renal masses. Pancreas: Limited views of the pancreas show increased echogenicity with no definite masses. IMPRESSION: 1. Distended gallbladder with tiny dependent likely gallstones, mildly thickened gallbladder wall with a trace of pericholecystic fluid. Sonographic features of hydrops gallbladder with an early acute cholecystitis. Clinical and lab correlation (CRP) is advised for confirmation. (The gallbladder wall thickening and a trace of pericholecystic fluid are more conspicuous on the ultrasound study than the previous CT scan, and are a new finding since the previous ultrasound scan) 2. The CBD is not dilated. Unchanged. 3. Redemonstration of hepatic likely focal fatty infiltration. Mildly increased in size since the 2020 ultrasound scan. RECOMMENDATIONS: Clinical correlation with symptoms and further evaluation as indicated. Electronically signed by Chris Herrera 07-06-2025 04:34 AM
--- NOTE | 2025-07-06 05:17 | History & Physical Report ---
Date of Service July 06, 2025 Assessment & Plan (1) Asymptomatic hypertensive urgency: Plan: Assessment and plan below following discussion of case with ED provider and reviewing patient history/pertinent normal/abnormal diagnostic test results. Asymptomatic hypertensive urgency secondary to cholecystitis No sepsis for now hyperlipidemia, on statin Rx hx carotid artery disease as per records, history of carotid artery aneurysm, patient follows with [facility] vascular surgery DM2 diet-controlled, well-controlled as of recent hemoglobin A1c of 6.6 last month GERD, on PPI Admit to med/tele Analgesia Facilitate home losartan now Add amlodipine to regimen if BP still uncontrolled General Surgery consult re: cholecystitis (Patient already seen at the ER by provider. Zosyn and n.p.o. status recommended.) Hold home aspirin for now given possible procedure, resume postop once bleeding risk is deemed minimal/negligible following postop eval ISS BG goal 110-140 DVT prophylaxis. SCDs re: possible procedure Full code Patient requests for daughter to be given updates regarding care. Ms. Chula Torres, contact #[phone]. Text document was generated using [employer] voice recognition software. It may contain grammatical or spelling errors. Kindly contact undersigned for clarification of any documentation item in question. History of Present Illness Chief Complaint: RUQ pain Primary Care Provider: Raeksh Holt, DO History obtained from patient, family, and records. Medical history significant for hypertension, hyperlipidemia, carotid artery disease as per records, DM2 diet-controlled, GERD. Last confinement September 2024 under gynecology service for uterovaginal p rolapse status post surgery. Unremarkable postop course. Yesterday, patient noted achy right upper quadrant pain going to the flank following consumption of a steak sandwich. No nausea, no emesis. No SOB. Usual cough symptoms from allergies. Patient recalls mild episodes of discomfort from last year. Patient brought to ER by family for evaluation. Highest SBP of 190s documented at the ER. IV Zosyn administered at the ER for cholecystitis. Medical History as above Surgical History : Knee surgery, SUPA/BSO, tonsillectomy, cataract surgeries, bladder tuck Family History : DM, heart disease, stroke, thyroid cancer Personal/Social history : Non-smoker, no EtOH intake, caregiver Allergies Allergy/AdvReac Type Severity Reaction Status Date / Time amoxicillin AdvReac Mild YEAST Verified 06/12/25 10:58 INFECTION Home Medications Medication Instructions Recorded Confirmed Type fluticasone propionate 50 2 sprays intranasal DAILY PRN 08/03/19 07/06/25 History mcg/actuation nasal Allergy Symptoms spray,suspension losartan 100 mg tablet 100 mg PO QAM #90 tabs 04/08/21 07/06/25 Rx ondansetron HCl 4 mg tablet 4 mg PO Q8H PRN nausea and 10/08/21 07/06/25 Rx (Zofran) vomiting #30 tabs cholecalciferol (vitamin D3) 25 1,000 unit PO QAM 08/15/22 07/06/25 History mcg (1,000 unit) chewable tablet (Vitamin D3) desonide 0.05 % topical cream 1 applic topical BID PRN Rash 08/15/22 07/06/25 History multivitamin 2 tab PO QAM 08/15/22 07/06/25 History azelastine 137 mcg (0.1 %) nasal 1 spray intranasal BID PRN Allergy 07/06/24 07/06/25 History spray Symptoms simvastatin 20 mg tablet 20 mg PO QAM 07/06/24 07/06/25 History aspirin 81 mg tablet,delayed 81 mg PO QAM 08/24/24 07/06/25 History release (Ecotrin Low Strength) aspirin-caffeine 500 mg-32.5 mg 1 tab PO UD PRN Pain 08/24/24 07/06/25 History tablet ([facility] [employer]) loratadine-pseudoephedrine ER 10 1 tab PO QAM PRN allergies 08/24/24 07/06/25 History mg-240 mg tablet,extended [id number] (Claritin-D 24 Hour) pantoprazole 40 mg tablet,delayed 20 mg PO QAM 12/21/24 07/06/25 History release guar gum 1 gram tablet 1 g PO DAILY PRN Constipation 06/07/25 07/06/25 History phenylephrine-acetaminophen 5 1 tab PO QID PRN allergies 06/07/25 07/06/25 History mg-325 mg tablet (Tylenol Sinus Headache) Past Med/Surg History Problem List (Updated 07/06/25 @ 06:06 by Shaun Garay MD) Asymptomatic hypertensive urgency Acute cholecystitis (Acute) Cholecystitis Traumatic arthritis of shoulder region Chronic knee pain after total replacement of left knee joint Left knee pain Sacroiliitis Osteoarthritis of right knee Cervical facet joint syndrome Bilateral knee pain Myofascial pain Chronic rhinitis Hypertrophy of both inferior nasal turbinates Subacute sinusitis Irritability Eructation Cystocele with rectocele Right internal carotid artery aneurysm Carotid artery plaque Biceps tendinitis of left shoulder Strain of left knee Lumbar facet joint syndrome Vitamin D deficiency (Acute) Prolapse of female pelvic organs Incontinence Hypertension (Chronic) Diabetes mellitus (Chronic) Palpitations (Acute) Lumbar radiculopathy Osteoarthritis of left knee History of hepatitis C DIAGNOSED 2006; S/P TREATMENT X 1 YEAR- REPEAT TESTING HAS UNDETECTABLE VIRAL LOAD Depressive disorder Dyslipidemia (Chronic) GERD (gastroesophageal reflux disease) (Chronic) CONTROLLED Medical History Fibromuscular dysplasia Mild fibromuscular dysplasia in the cervical ICAs Hx of Clostridium difficile infection (2014) ~ 10 years, treated Traumatic arthritis of shoulder region Chronic knee pain 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 reports no neck pain, full rom Vitamin D deficiency Incontinence occ. with coughing- has improved since bladder surgery 09/25; also has occ bowel incontinence GERD (gastroesophageal reflux disease) controlled, stable per pt Depressive disorder denies current Cystocele with rectocele Chronic rhinitis Dyslipidemia History of hepatitis C diagnosed 2006; s/p treatment x 1 year-states repeat testing showed undetectable viral load Carotid artery plaque <50% stenosis B/L ICA per most recent (2018 Doppler); follows with [facility] Right internal carotid artery aneurysm follows with [facility]; most recent visit: 06/14/24: per note "unchanged R carotid ectasia/aneurysm: 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 states does not need to see docotor again until 2024 History of postoperative nausea and vomiting Obesity Diabetes no medications- had been on metformin in past, now no longer taking x 4 years Spinal stenosis with lumbar radiculopathy; follows with pain clinic and sees chriopractor, pt. is having SI Joint injection on 06/12/25 (states dr. caicedo aware and ok with this) Osteoarthritis Hearing deficit hearing aids History of anxiety Hypertension Surgical History S/P hysterectomy (09/02/24) with bladder tac History of bilateral cataract extraction (2021) History of left oophorectomy History of total left knee replacement (TKR) (01/2019) History of esophagogastroduodenoscopy (EGD) (2018) 12/29/18= MAC sedation at [facility] carpal tunnel repair (1999) B/L History of bilateral tubal ligation History of tooth extraction History of colonoscopy History of tonsillectomy (1984) History of hysteroscopy pt states she does not remember this surgery History of dilatation and curettage Family History Mother Diabetes Coronary heart disease Chronic systolic congestive heart failure Father Coronary heart disease Myocardial infarction Hypertension Stroke Other No family history of adverse response to anesthesia Denies family history of Ovarian cancer Prostate cancer Breast cancer Colorectal cancer Social History Smoking Status: Never smoker Second Hand Exposure: No; Do You Dip or Chew Tobacco: No; Hx Alcohol Use: No Hx Substance Use: No Preferred Language: Belarusian Communication Ability: Effective Visual Impairment: No Limitations Hearing Ability: Use of Hearing Aid 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 Required: No Beliefs That Will Affect Care: None marital status: / Current Living Situation: Alone Current Living Situation Comment: DAUGHTER LIVES WITH PT current occupational status: retired Feels Safe at Home: Yes Childhood Exposure to Second-Hand Smoke: No Diet: regular caffeine: No Dental Care, Regularly: Yes Physical Activity Frequency: Daily Seatbelt Use: always Sunscreen Use: No Assistive Devices: Glasses and Hearing Aid - Bilateral Review of Systems Review of Systems: As per HPI, chronic right shoulder pain, all other systems reviewed and negative Physical Exam Physical Exam: GENERAL: Comfortable, obese, pleasant, no respiratory distress SKIN: Normal color, warm HEENT: [place] palpebral conjunctivae, no ptosis, dry buccal mucosa NECK : Supple, no tenderness CHEST : CTA, no tenderness HEART : RRR, no obvious murmurs ABDOMEN: Some distention, RUQ tenderness EXTREMITIES : No LE swelling/tenderness, palpable pulses, no other conspicuous deformities noted NEUROLOGIC : Coherent, no facial asymmetry, no other gross focality Results & Data Results & Data Vital Signs (Past 12 Hours) Vital Signs Temp Pulse Pulse Resp BP BP Pulse Ox 07/06/25 04:22 75 07/06/25 04:00 76 20 177/100 H 97 07/06/25 02:14 85 18 152/65 H 95 07/06/25 01:11 78 18 142/93 H 94 07/05/25 23:39 36.7 C 109 H 22 147/85 H 96 O2 Del Method 07/06/25 04:22 07/06/25 04:00 Room Air 07/06/25 02:14 Room Air 07/06/25 01:11 Room Air 07/05/25 23:39 Room Air Laboratory Results Laboratory Results WBC 5.11 K/ul (4.8-10.8) 07/06/25 00:15 RBC 4.32 M/uL (4.20-5.40) 07/06/25 00:15 Hgb 12.6 g/dl (12.0-16.0) 07/06/25 00:15 Hct 38.2 % (37.0-47.0) 07/06/25 00:15 MCV 88.4 fL (80.0-100.0) 07/06/25 00:15 MCH 29.2 pg (25.0-34.0) 07/06/25 00:15 MCHC 33.0 g/dL (32.0-36.0) 07/06/25 00:15 RDW Std Deviation 44.2 fL (36.4-46.3) 07/06/25 00:15 RDW Coeff of Ray 13.5 % (11.5-14.5) 07/06/25 00:15 Plt Count 266 K/uL (130-400) 07/06/25 00:15 MPV 9.1 fL (9.4-12.4) L 07/06/25 00:15 Immature Gran % (Auto) 0.2 % 07/06/25 00:15 Neut % (Auto) 77.7 % 07/06/25 00:15 Lymph % (Auto) 14.9 % 07/06/25 00:15 [place] % (Auto) 6.8 % 07/06/25 00:15 Eos % (Auto) 0.2 % 07/06/25 00:15 Baso % (Auto) 0.2 % 07/06/25 00:15 Neut # (Auto) 3.97 K/uL (1.40-6.50) 07/06/25 00:15 Lymph # (Auto) 0.76 K/uL (1.20-3.40) L 07/06/25 00:15 [place] # (Auto) 0.35 K/uL (0.11-0.59) 07/06/25 00:15 Eos # (Auto) 0.01 K/uL (0.00-0.50) 07/06/25 00:15 Baso # (Auto) 0.01 K/uL (0.00-0.20) 07/06/25 00:15 Immature Gran # (Auto) 0.01 K/uL (0.01-0.20) 07/06/25 00:15 Sodium 140 mmol/L (136-145) 07/06/25 00:15 Potassium 3.9 mmol/L (3.5-5.1) 07/06/25 00:15 Chloride 108 mmol/L (98-107) H 07/06/25 00:15 Carbon Dioxide 25 mmol/L (21-32) 07/06/25 00:15 Anion Gap 7 (3-11) 07/06/25 00:15 BUN 24 mg/dl (6-23) H 07/06/25 00:15 Creatinine 1.12 mg/dl (0.6-1.2) 07/06/25 00:15 Est Cr Clr Drug Dosing 44.4 ml/min 07/06/25 00:15 eGFR 52.25 07/06/25 00:15 BUN/Creatinine Ratio 21.4 (10-20) H 07/06/25 00:15 Glucose 149 mg/dl (70-99(Fasting)) H 07/06/25 00:15 Calcium 9.4 mg/dl (8.6-10.3) 07/06/25 00:15 Total Bilirubin 0.3 mg/dl (0.2-1.0) 07/06/25 00:15 AST 20 U/L (13-39) 07/06/25 00:15 ALT 19 U/L (7-52) 07/06/25 00:15 Alkaline Phosphatase 63 U/L (34-104) 07/06/25 00:15 Total Protein 7.3 gm/dl (6.0-8.3) 07/06/25 00:15 Albumin 4.2 gm/dl (3.4-5.0) 07/06/25 00:15 Globulin 3.1 gm/dl (2.5-4.0) 07/06/25 00:15 Albumin/Globulin Ratio 1.4 (0.9-2) 07/06/25 00:15 Lipase 18 U/L (11-82) 07/06/25 00:15 Urine Color Yellow 07/06/25 00:53 Urine Appearance Cloudy (Clear) A 07/06/25 00:53 Urine pH 5.0 (4.5-7.5) 07/06/25 00:53 Ur Specific [place] 1.032 (1.000-1.030) H 07/06/25 00:53 Urine Protein Trace (Negative) H 07/06/25 00:53 Urine Glucose (UA) Negative (Negative) 07/06/25 00:53 Urine Ketones Trace (Negative) H 07/06/25 00:53 Urine Blood Negative (Negative) 07/06/25 00:53 Urine Nitrite Negative (Negative) 07/06/25 00:53 Urine Bilirubin Negative (Negative) 07/06/25 00:53 Urine Urobilinogen Negative (Negative) 07/06/25 00:53 Ur Leukocyte Esterase Negative (Negative) 07/06/25 00:53 Urine WBC (Auto) 0-5 /hpf (0-5) 07/06/25 00:53 Urine RBC (Auto) 0-2 /hpf (0-2) 07/06/25 00:53 U Hyaline Cast (Auto) 3-5 /lpf (0-2) H 07/06/25 00:53 U Epithel Cells (Auto) 0-2 /hpf (0-2) 07/06/25 00:53 Urine Bacteria (Auto) None Seen (None Seen) 07/06/25 00:53 Urine Comment 07/06/25 00:53 Impressions Abdomen/Pelvis CT 07/06/25 00:31 EXAM: CT abd pelvis IV con only CLINICAL HISTORY: RUQ pain TECHNIQUE: Multiple contiguous axial images were obtained from the level of diaphragm to the pubis symphysis. This study was acquired after the IV administration of iodinated contrast material, given the patient's indications for the examination. If IV contrast material had not been administered, the likelihood of detecting abnormalities relevant to the patient's condition would have been substantially decreased. Coronal and sagittal reformatted images were generated and reviewed to improve anatomic localization and optimize lesion detection. CT scan was performed according to ALARA (as low as reasonably achievable). COMPARISON: CT, 06/15/2020 06:36:23 [employer] FINDINGS: The visualized lung bases are clear. ABDOMEN/PELVIS: The liver is normal in size and attenuation. No focal liver lesions are seen. There is no intra or extrahepatic biliary ductal dilatation. Hepatic vasculature is patent. The gallbladder is unremarkable. Layered hyperdensity seen along neck of gall bladder- advised ultrasound correlation. The spleen and adrenal glands are unremarkable. Fatty infiltration of pancratic head. The kidneys are normal in size and attenuation. There is no hydronephrosis or perinephric fat stranding. No renal calculi or renal masses are identified. A subcentimetric simple cortical cyst at lower interpolar region of right kidney. The ureters are normal in caliber and no ureteral calculi are seen. The bladder is minimaly filled. Post hysterectomy status. No evidence of focal or diffuse bowel wall thickening or evidence of bowel obstruction is seen. Multiple small diverticuli of 2mm seen in sigmoid colon. No inflammatory changes. The appendix is visualized in the right lower quadrant and appears within normal limits. No adenopathy or fluid collections are seen. The aorta is normal in caliber. No aggressive appearing osseous lesions are identified. Anterolisthesis of L4 over L5 present. Small fat containing umbilical hernia, IMPRESSION: 1. No acute intra-abdominal pathology detected. 2. Layered hyperdensity seen along neck of gall bladder- new finding. Advised ultrasound correlation. 3. Fatty infiltration of pancratic head- Interval increase. 4. Uncomplicated sigmoid colon diverticulosis- Stable. 5. Stable Small fat containing umbilical hernia, Electronically signed by Flex Camara 07-06-2025 02:05 AM Gallbladder Ultrasound 07/06/25 02:10 EXAM: US gallbladder CLINICAL HISTORY: Abnormal layering in the neck of the GB on CT TECHNIQUE: Ultrasound examination of the RUQ was performed in real-time. COMPARISON: 07/06/2025 CT and 02/20/2021 US FINDINGS: Limited study due to the patient's habitus. Liver: Liver size: 14 cm. Geographic hyperechogenicity in the liver, measuring 1.4 x 2 x 1 cm, is likely correlated to geographic hypodensity on the CT scan at segment IV and is likely representing focal fatty infiltration. Hepatic vasculature appears normal. Gallbladder: The gallbladder is visualized and appears distended with a bulging anterior border beyond the hepatic border (Image #[id number]). Tiny echogenic foci are noted along the dependent portion of the gallbladder with no definite shadowing detected, which could be tiny stones with small sludge formation. Mildly thickened gallbladder wall, measuring 3.5 mm. A trace of pericholecystic fluid is noted. Inability to assess the Ball's sign due to prior pain medications. Biliary Tree: Common bile duct diameter: 5.2 mm. The common bile duct is within normal limits in caliber and not dilated. No evidence of choledocholithiasis or biliary obstruction. Right Kidney: The right kidney appears normal in size with preserved corticomedullary differentiation. Right lower pole renal cyst measuring 1.3 cm. No evidence of right-sided hydronephrosis. No definite right renal masses. Pancreas: Limited views of the pancreas show increased echogenicity with no definite masses. IMPRESSION: 1. Distended gallbladder with tiny dependent likely gallstones, mildly thickened gallbladder wall with a trace of pericholecystic fluid. Sonographic features of hydrops gallbladder with an early acute cholecystitis. Clinical and lab correlation (CRP) is advised for confirmation. (The gallbladder wall thickening and a trace of pericholecystic fluid are more conspicuous on the ultrasound study than the previous CT scan, and are a new finding since the previous ultrasound scan) 2. The CBD is not dilated. Unchanged. 3. Redemonstration of hepatic likely focal fatty infiltration. Mildly increased in size since the 2020 ultrasound scan. RECOMMENDATIONS: Clinical correlation with symptoms and further evaluation as indicated. Electronically signed by Chris Herrera 07-06-2025 04:34 AM Diagnostic Findings EKG as per my interpretation :Rate 90, NSR, LAD, LAFD, LVH, inferior infarct, no ischemia
--- NOTE | 2025-07-06 05:24 | Surgery Consultation ---
Date of Consultation July 06, 2025 Assessment & Plan (1) Cholecystitis: Discussed with the treating emergency room physician the patient is being admitted on the hospitalist service. From a surgical perspective we recommend the following: Implement n.p.o. status Provide IV fluid for hydration while n.p.o. Provide antiemetics Initiate antibiotics in the form of Zosyn It appears that the patient has early cholecystitis/biliary colic and may benefit from cholecystectomy. However, the patient was noted to be markedly hypertensive (her systolic blood pressure was nearly 200 during my encounter with her in the room) and therefore will need to have this parameter optimized prior to entertaining surgical intervention We will obtain a chest x-ray for preoperative purposes Will check coagulation studies Patient is not medically optimized for surgery later today would recommend repeating laboratories on 07/07/2025 to ensure there is no elevation or further abnormalities of her LFTs Would recommend utilizing only SCDs for DVT prevention, no chemical means until is ascertained about the timing of any surgical intervention Additional recommendations to be forthcoming based on her clinical course as it unfolds Supervising Physician Co-Signing Physician Notes I have seen and examined this patient. She is currently asymptomatic and without abdominal pain. Will allow her to have a diet today. She may be discharged tomorrow am on oral antibiotics if she tolerates a diet without symptoms, her lab work is still acceptable and medically stable. We will plan for cholecystectomy in the outpatient setting likely the Thursday following her planned shoulder surgery which is next week. History of Present Illness Reason for Consultation: Abdominal pain History of Present Illness This is a 70 years female who presented the emergency department secondary to abdominal pain. Patient says that she is having off-and-on abdominal pain in her right upper quadrant for approximately 1 year. She notes that she presented to the emergency department because the pain became somewhat worse today and lasted longer than usual therefore prompting her emergency department visit. Patient says that the pain is usually not related to solid foods but seems to be worse after she drinks carbonated beverages such as soda. With her current symptomatology she has not had any nausea or vomiting. She also denies any fevers, shakes, or chills. Her most recent oral intake was at approximately 9:3 0 PM on 07/05/2025. She has had prior abdominal surgerieshysterectomy with bladder tacking and tubal ligation. Since arrival in the emergency department patient has had labs and imaging which I independently reviewed. A CT scan of the abdomen pelvis showed the patient had some layering hyperdensities in the neck of the gallbladder without definite signs of cholecystitis. Gallbladder ultrasound was performed which showed that the gallbladder was distended with echogenic foci concerning for gallstones. The gallbladder wall was mildly thickened with trace pericholecystic fluid concerning for early acute cholecystitis. Labs included CBC with white blood cell count, hemoglobin, hematocrit, and platelet count were normal. Chemistry profile showed sodium and potassium as well as the creatinine were normal. The BUN was elevated 24. There is no elevation of patient's LFTs or lipase. Urinalysis was not indicative infection and EKG did not have any changes indicative of acute ischemia. At the time of my interview she was resting comfortably in bed and she was in no distress Allergies Allergy/AdvReac Type Severity Reaction Status Date / Time amoxicillin AdvReac Mild YEAST Verified 06/12/25 10:58 INFECTION Home Medications Medication Instructions Recorded Confirmed Type fluticasone propionate 50 2 sprays intranasal DAILY PRN 08/03/19 07/06/25 History mcg/actuation nasal Allergy Symptoms spray,suspension losartan 100 mg tablet 100 mg PO QAM #90 tabs 04/08/21 07/06/25 Rx ondansetron HCl 4 mg tablet 4 mg PO Q8H PRN nausea and 10/08/21 07/06/25 Rx (Zofran) vomiting #30 tabs cholecalciferol (vitamin D3) 25 1,000 unit PO QAM 08/15/22 07/06/25 History mcg (1,000 unit) chewable tablet (Vitamin D3) desonide 0.05 % topical cream 1 applic topical BID PRN Rash 08/15/22 07/06/25 History multivitamin 2 tab PO QAM 08/15/22 07/06/25 History azelastine 137 mcg (0.1 %) nasal 1 spray intranasal BID PRN Allergy 07/06/24 07/06/25 History spray Symptoms simvastatin 20 mg tablet 20 mg PO QAM 07/06/24 07/06/25 History aspirin 81 mg tablet,delayed 81 mg PO QAM 08/24/24 07/06/25 History release (Ecotrin Low Strength) aspirin-caffeine 500 mg-32.5 mg 1 tab PO UD PRN Pain 08/24/24 07/06/25 History tablet ([facility] [employer]) loratadine-pseudoephedrine ER 10 1 tab PO QAM PRN allergies 08/24/24 07/06/25 History mg-240 mg tablet,extended [id number] (Claritin-D 24 Hour) pantoprazole 40 mg tablet,delayed 20 mg PO QAM 12/21/24 07/06/25 History release guar gum 1 gram tablet 1 g PO DAILY PRN Constipation 06/07/25 07/06/25 History phenylephrine-acetaminophen 5 1 tab PO QID PRN allergies 06/07/25 07/06/25 History mg-325 mg tablet (Tylenol Sinus Headache) amoxicillin 875 mg-potassium 1 tab PO BID 10 days #20 tabs 07/06/25 Rx clavulanate 125 mg tablet vancomycin 125 mg capsule 125 mg PO DAILY 17 days #17 caps 07/06/25 Rx (Vancocin) Patient History Medical History Fibromuscular dysplasia Mild fibromuscular dysplasia in the cervical ICAs Hx of Clostridium difficile infection (2014) ~ 10 years, treated Traumatic arthritis of shoulder region Chronic knee pain 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 reports no neck pain, full rom Vitamin D deficiency Incontinence occ. with coughing- has improved since bladder surgery 09/25; also has occ bowel incontinence GERD (gastroesophageal reflux disease) controlled, stable per pt Depressive disorder denies current Cystocele with rectocele Chronic rhinitis Dyslipidemia History of hepatitis C diagnosed 2006; s/p treatment x 1 year-states repeat testing showed undetectable viral load Carotid artery plaque <50% stenosis B/L ICA per most recent (2018 Doppler); follows with [facility] Right internal carotid artery aneurysm follows with [facility]; most recent visit: 06/14/24: per note "unchanged R carotid ectasia/aneurysm: 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 states does not need to see docotor again until 2024 History of postoperative nausea and vomiting Obesity Diabetes no medications- had been on metformin in past, now no longer taking x 4 years Spinal stenosis with lumbar radiculopathy; follows with pain clinic and sees chriopractor, pt. is having SI Joint injection on 06/12/25 (states dr. caicedo aware and ok with this) Osteoarthritis Hearing deficit hearing aids History of anxiety Hypertension Surgical History S/P hysterectomy (09/02/24) with bladder tac History of bilateral cataract extraction (2021) History of left oophorectomy History of total left knee replacement (TKR) (01/2019) History of esophagogastroduodenoscopy (EGD) (2018) 12/29/18= MAC sedation at [facility] H/O carpal tunnel repair (1999) B/L History of bilateral tubal ligation History of tooth extraction History of colonoscopy History of tonsillectomy (1984) History of hysteroscopy pt states she does not remember this surgery History of dilatation and curettage Family History Mother Diabetes Coronary heart disease Chronic systolic congestive heart failure Father Coronary heart disease Myocardial infarction Hypertension Stroke Other No family history of adverse response to anesthesia Denies family history of Ovarian cancer Prostate cancer Breast cancer Colorectal cancer Social History Smoking Status: Never smoker Second Hand Exposure: No; Do You Dip or Chew Tobacco: No; Hx Alcohol Use: No Hx Substance Use: No Preferred Language: Pashto Communication Ability: Effective Visual Impairment: No Limitations Hearing Ability: Use of Hearing Aid Parts Room Associate Required: No Beliefs That Will Affect Care: None marital status: / Current Living Situation: Alone Current Living Situation Comment: DAUGHTER LIVES WITH PT current occupational status: retired Feels Safe at Home: Yes Childhood Exposure to Second-Hand Smoke: No Diet: regular caffeine: No Dental Care, Regularly: Yes Physical Activity Frequency: Daily Seatbelt Use: always Sunscreen Use: No Assistive Devices: None Review of Systems Review of Systems: All systems reviewed & are unremarkable except as noted in HPI & below Physical Exam Eyes: sclerae not anicteric ENMT: Ears: no hearing impairment and no external ear abnormality Neck: trachea midline Respiratory: normal respiratory effort; no respiratory distress and no labored breathing Cardiovascular: Rate/Rhythm: regular rate and regular rhythm Gastrointestinal (Abdomen): Abdomen is rotund but soft. There is no rebound tenderness, guarding, or signs of peritonitis. Patient did have pain with palpation in the right upper quadrant with deep palpation Musculoskeletal: No calf tenderness Skin: no rashes Neurologic: moves all extremities Psychiatric: A+Ox3, euthymic affect Results & Data Vital Signs (Past 12 Hours) Vital Signs Temp Pulse Pulse Resp BP BP Pulse Ox 07/06/25 04:22 75 07/06/25 04:00 76 20 177/100 H 97 07/06/25 02:14 85 18 152/65 H 95 07/06/25 01:11 78 18 142/93 H 94 07/05/25 23:39 36.7 C 109 H 22 147/85 H 96 O2 Del Method 07/06/25 04:22 07/06/25 04:00 Room Air 07/06/25 02:14 Room Air 07/06/25 01:11 Room Air 07/05/25 23:39 Room Air PG Care Time/CCT Total # of Minutes Spent Total Time Spent with Patient: Total time spent is greater than 50% in coordination of care (as documented) at patient's floor/unit and/or counseling patient: Coding Level of Care Code 91632 INT INP/OBS CARE 75MIN Diagnoses Cholecystitis K81.9
[2025-07-06] MEDS ORDERED: NON-FORMULARY MEDICATION (Loratadine-Pseudoephedrine [Claritin-D 24 Hour] 10-240 mg Tablet PO PRN (05:57)
[2025-07-06] MEDS ORDERED: PROMETHAZINE 6.25 MG/50.25 ML BAG IV PRN (05:58)
[2025-07-06] MEDS ORDERED: MoRPHine SULFATE 4 MG/ML 1 ML CARP\\VIAL IV PRN (05:58)
[2025-07-06] MEDS: LOSARTAN POTASSIUM 50 MG TAB PO STA (05:59)
--- NOTE | 2025-07-06 06:05 | XRay Report ---
EXAM: XR chest 1V portable CLINICAL HISTORY: pre-op TECHNIQUE: An X-ray image of the chest is obtained in AP projection. COMPARISON: prior CXR on 06/14/2025 FINDINGS: Pulmonary Parenchyma: No evidence of consolidation, collapse, or focal opacities. No pulmonary nodules are identified. No evidence of pleural effusion or pleural thickening. Heart and Mediastinum: Heart size and shape are normal. No mediastinal widening or masses. No hilar or mediastinal lymphadenopathy. Bony Thorax: Slight deformity of the right proximal humerus (could be due to old fracture). (unchanged). Bony thorax appears intact without fractures or deformities. Soft Tissues: Soft tissues overlying the chest wall are unremarkable. IMPRESSION: Unremarkable chest X-ray. No acute cardiopulmonary abnormalities are identified. No apparent interval changes. Electronically signed by Chris Herrera 07-06-2025 06:04 AM
[2025-07-06] MEDS: PIPERACILLIN/TAZOBACTAM 4.5 GM/100 ML BAG IV ONE (06:41)
[2025-07-06 06:57] LABS: INR 0.9 (0.9-1.1); Partial Thromboplastin Time 31 Seconds (21-31); Prothrombin Time 10.2 Seconds (9.0-12.0)
[2025-07-06] MEDS ORDERED: GLUCAGON FOR INJ 1 MG VIAL SQ PRN (08:44)
[2025-07-06] MEDS ORDERED: GLUCOSE 40% GEL 15 GM TUBE PO PRN (08:44)
[2025-07-06] MEDS ORDERED: GLUCOSE 10 TAB/TUBE PO PRN (08:44)
[2025-07-06] MEDS ORDERED: CARBOHYDRATES FOR HYPOGLYCEMIA PO PRN (08:44)
[2025-07-06] MEDS ORDERED: DEXTROSE 50% 50 ML SYRINGE IV PRN (08:44)
[2025-07-06 08:47] VITALS: O2SAT 96
[2025-07-06] MEDS: MULTIVITAMIN TAB PO SCH (09:11)
[2025-07-06] MEDS: CHOLECALCIFEROL 25 MCG (1000 UNITS) TAB PO SCH (09:11)
[2025-07-06] MEDS: SIMVASTATIN 20 MG TAB PO SCH (09:11)
[2025-07-06] MEDS: SODIUM CHLORIDE 0.9% 1,000 ML IV SCH (09:12)
[2025-07-06] MEDS: INSULIN ASPART PER UNIT CHARGE SC SCH ×2 (09:52→10:27)
[2025-07-06] MEDS: ACETAMINOPHEN 325 MG TAB PO PRN (11:28)
[2025-07-06] MEDS: FLUTICASONE PROPIONATE NA SPR 16 GM BTL SCH (12:15)
[2025-07-06 12:26] VITALS: RESP 18; TEMP 98.8
--- NOTE | 2025-07-06 12:31 | Electrocardiogram Report ---
Test Reason : Blood Pressure : */* mmHG Vent. Rate : 92 BPM Atrial Rate : 92 BPM P-R Int : 168 ms QRS Dur : 88 ms QT Int : 346 ms P-R-T Axes : 30 -21 38 degrees QTcB Int : 427 ms Normal sinus rhythm Minimal voltage criteria for LVH, may be normal variant possible Inferior infarct , age undetermined Anterolateral infarct , age undetermined Abnormal ECG When compared with ECG of 26-Jan-2019 10:47, Premature supraventricular complexes are no longer Present Anterior infarct is now Present Anterolateral infarct is now Present Confirmed by Víctor Lipscomb ([id number]) on 07/06/2025 12:30:55 PM Referred By: REFERRED SELF Confirmed By: Víctor Lipscomb
[2025-07-06] MEDS: PIPERACILLIN/TAZOBACTAM 4.5 GM/100 ML BAG IV SCH (13:03)
[2025-07-06 13:53] VITALS: BP 179/81; PULSE 89
--- NOTE | 2025-07-06 13:56 | Discharge Summary ---
Discharge Summary Date of Service July 06, 2025 Principal Dx & Hospital Course #1 = Principal Diagnosis (1) Asymptomatic hypertensive urgency: Assessment and plan below following discussion of case with ED provider and reviewing patient history/pertinent normal/abnormal diagnostic test results. Acute cholecystitis GB Ultrasound: 1. Distended gallbladder with tiny dependent likely gallstones, mildly thickened gallbladder wall with a trace of pericholecystic fluid. Sonographic features of hydrops gallbladder with an early acute cholecystitis. Clinical and lab correlation (CRP) is advised for confirmation. (The gallbladder wall thickening and a trace of pericholecystic fluid are more conspicuous on the ultrasound study than the previous CT scan, and are a new finding since the previous ultrasound scan) 2. The CBD is not dilated. Unchanged. 3. Redemonstration of hepatic likely focal fatty infiltration. Mildly increased in size since the 2020 ultrasound scan. LFTs within normal limits symptoms resolved afebrile Evaluated by general surgery service-Dr. Christina Choudhary Recommend oral antibiotic course and follow-up with her this coming Thursday for planning of elective cholecystectomy-July 17, 2025 Will discharge on: Augmentin 875 mg twice daily x 10 days Vancomycin 125 mg daily for 17 days for prophylaxis against C. difficile as patient has history of recurrent C. difficile Follow-up with general surgeon Dr. Christina Choudhary this coming Thursday refer to GI for fatty liver and Fatty infiltration of pancreatic head seen on CT abd/pelvis Asymptomatic hypertensive urgency secondary to cholecystitis -- resolved -- patient reports blood pressure has been stable recently hold off on additional blood pressure medications at this point Continue losartan Follow-up with PCP in 1 week hyperlipidemia, on statin Rx hx carotid artery disease as per records, history of carotid artery aneurysm, patient follows with [facility] [place] vascular surgery DM2 diet-controlled, well-controlled as of recent hemoglobin A1c of 6.6 last month GERD, on PPI plan of care discussed with patient in detail and at length all questions answered she is understanding, agreeable, comfortable with the plan of care Notes For Next Care Provider Medication Changes From Visit Augmentin 875 mg twice a day for 10 days Vancomycin 125 mg daily x 17 days Admission HPI Per Admitting Provider History obtained from patient, family, and records. Medical history significant for hypertension, hyperlipidemia, carotid artery disease as per records, DM2 diet-controlled, GERD. Last confinement September 2024 under gynecology service for uterovaginal prolapse status post surgery. Unremarkable postop course. Yesterday, patient noted achy right upper quadrant pain going to the flank following consumption of a steak sandwich. No nausea, no emesis. No SOB. Usual cough symptoms from allergies. Patient recalls mild episodes of discomfort from last year. Patient brought to ER by family for evaluation. Highest SBP of 190s documented at the ER. IV Zosyn administered at the ER for cholecystitis. Medical History as above Surgical History : Knee surgery, SUPA/BSO, tonsillectomy, cataract surgeries, bladder tuck Family History : DM, heart disease, stroke, thyroid cancer Personal/Social history : Non-smoker, no EtOH intake, caregiver Admission Exam Per Admitting Provider GENERAL: Comfortable, obese, pleasant, no respiratory distress SKIN: Normal color, warm HEENT: [place] palpebral conjunctivae, no ptosis, dry buccal mucosa NECK : Supple, no tenderness CHEST : CTA, no tenderness HEART : RRR, no obvious murmurs ABDOMEN: Some distention, RUQ tenderness EXTREMITIES : No LE swelling/tenderness, palpable pulses, no other conspicuous deformities noted NEUROLOGIC : Coherent, no facial asymmetry, no other gross focality Discharge Exam General- oriented x 3, not in distress, speaks in sentences with no effort or accessory muscle use Eyes- anicteric Neck- no JVD Lungs- clear breath sounds bilaterally, no rales/wheezes Heart- normal rate, regular rhythm; no murmurs Abdomen- normal bowel sounds, nondistended, soft, nontender no right upper quadrant tenderness Extremities- no pretibial edema, no calf tenderness Neuro- alert, oriented x 3; no gross focal neurologic deficits Skin- warm & dry Updated Medication List Medication Instructions Recorded Confirmed Type fluticasone propionate 50 2 sprays intranasal DAILY PRN 08/03/19 07/06/25 History mcg/actuation nasal Allergy Symptoms spray,suspension losartan 100 mg tablet 100 mg PO QAM #90 tabs 04/08/21 07/06/25 Rx ondansetron HCl 4 mg tablet 4 mg PO Q8H PRN nausea and 10/08/21 07/06/25 Rx (Zofran) vomiting #30 tabs cholecalciferol (vitamin D3) 25 1,000 unit PO QAM 08/15/22 07/06/25 History mcg (1,000 unit) chewable tablet (Vitamin D3) desonide 0.05 % topical cream 1 applic topical BID PRN Rash 08/15/22 07/06/25 History multivitamin 2 tab PO QAM 08/15/22 07/06/25 History azelastine 137 mcg (0.1 %) nasal 1 spray intranasal BID PRN Allergy 07/06/24 07/06/25 History spray Symptoms simvastatin 20 mg tablet 20 mg PO QAM 07/06/24 07/06/25 History aspirin 81 mg tablet,delayed 81 mg PO QAM 08/24/24 07/06/25 History release (Ecotrin Low Strength) aspirin-caffeine 500 mg-32.5 mg 1 tab PO UD PRN Pain 08/24/24 07/06/25 History tablet ([place] [employer]) loratadine-pseudoephedrine ER 10 1 tab PO QAM PRN allergies 08/24/24 07/06/25 History mg-240 mg tablet,extended [id number] (Claritin-D 24 Hour) pantoprazole 40 mg tablet,delayed 20 mg PO QAM 12/21/24 07/06/25 History release guar gum 1 gram tablet 1 g PO DAILY PRN Constipation 06/07/25 07/06/25 History phenylephrine-acetaminophen 5 1 tab PO QID PRN allergies 06/07/25 07/06/25 History mg-325 mg tablet (Tylenol Sinus Headache) amoxicillin 875 mg-potassium 1 tab PO BID 10 days #20 tabs 07/06/25 Rx clavulanate 125 mg tablet vancomycin 125 mg capsule 125 mg PO DAILY 17 days #17 caps 07/06/25 Rx (Vancocin) Hospital Stay Data Consultations 07/06/25 05:10 Consult General Surgery Routine 07/06/25 05:13 ED Decision to Admit Stat Diagnostic Imagining Performed Laboratory Results WBC 5.11 K/ul (4.8-10.8) 07/06/25 00:15 RBC 4.32 M/uL (4.20-5.40) 07/06/25 00:15 Hgb 12.6 g/dl (12.0-16.0) 07/06/25 00:15 Hct 38.2 % (37.0-47.0) 07/06/25 00:15 MCV 88.4 fL (80.0-100.0) 07/06/25 00:15 MCH 29.2 pg (25.0-34.0) 07/06/25 00:15 MCHC 33.0 g/dL (32.0-36.0) 07/06/25 00:15 RDW Std Deviation 44.2 fL (36.4-46.3) 07/06/25 00:15 RDW Coeff of Ray 13.5 % (11.5-14.5) 07/06/25 00:15 Plt Count 266 K/uL (130-400) 07/06/25 00:15 MPV 9.1 fL (9.4-12.4) L 07/06/25 00:15 Immature Gran % (Auto) 0.2 % 07/06/25 00:15 Neut % (Auto) 77.7 % 07/06/25 00:15 Lymph % (Auto) 14.9 % 07/06/25 00:15 [place] % (Auto) 6.8 % 07/06/25 00:15 Eos % (Auto) 0.2 % 07/06/25 00:15 Baso % (Auto) 0.2 % 07/06/25 00:15 Neut # (Auto) 3.97 K/uL (1.40-6.50) 07/06/25 00:15 Lymph # (Auto) 0.76 K/uL (1.20-3.40) L 07/06/25 00:15 [place] # (Auto) 0.35 K/uL (0.11-0.59) 07/06/25 00:15 Eos # (Auto) 0.01 K/uL (0.00-0.50) 07/06/25 00:15 Baso # (Auto) 0.01 K/uL (0.00-0.20) 07/06/25 00:15 Immature Gran # (Auto) 0.01 K/uL (0.01-0.20) 07/06/25 00:15 PT 10.2 Seconds (9.0-12.0) 07/06/25 06:09 INR 0.9 (0.9-1.1) 07/06/25 06:09 APTT 31 Seconds (21-31) 07/06/25 06:09 PTT Ratio 1.2 07/06/25 06:09 Sodium 140 mmol/L (136-145) 07/06/25 00:15 Potassium 3.9 mmol/L (3.5-5.1) 07/06/25 00:15 Chloride 108 mmol/L (98-107) H 07/06/25 00:15 Carbon Dioxide 25 mmol/L (21-32) 07/06/25 00:15 Anion Gap 7 (3-11) 07/06/25 00:15 BUN 24 mg/dl (6-23) H 07/06/25 00:15 Creatinine 1.12 mg/dl (0.6-1.2) 07/06/25 00:15 Est Cr Clr Drug Dosing 44.4 ml/min 07/06/25 00:15 eGFR 52.25 07/06/25 00:15 BUN/Creatinine Ratio 21.4 (10-20) H 07/06/25 00:15 Glucose 149 mg/dl (70-99(Fasting)) H 07/06/25 00:15 POC Glucose 106 mg/dl (70-99) H 07/06/25 12:15 Calcium 9.4 mg/dl (8.6-10.3) 07/06/25 00:15 Total Bilirubin 0.3 mg/dl (0.2-1.0) 07/06/25 00:15 AST 20 U/L (13-39) 07/06/25 00:15 ALT 19 U/L (7-52) 07/06/25 00:15 Alkaline Phosphatase 63 U/L (34-104) 07/06/25 00:15 Total Protein 7.3 gm/dl (6.0-8.3) 07/06/25 00:15 Albumin 4.2 gm/dl (3.4-5.0) 07/06/25 00:15 Globulin 3.1 gm/dl (2.5-4.0) 07/06/25 00:15 Albumin/Globulin Ratio 1.4 (0.9-2) 07/06/25 00:15 Lipase 18 U/L (11-82) 07/06/25 00:15 Urine Color Yellow 07/06/25 00:53 Urine Appearance Cloudy (Clear) A 07/06/25 00:53 Urine pH 5.0 (4.5-7.5) 07/06/25 00:53 Ur Specific [place] 1.032 (1.000-1.030) H 07/06/25 00:53 Urine Protein Trace (Negative) H 07/06/25 00:53 Urine Glucose (UA) Negative (Negative) 07/06/25 00:53 Urine Ketones Trace (Negative) H 07/06/25 00:53 Urine Blood Negative (Negative) 07/06/25 00:53 Urine Nitrite Negative (Negative) 07/06/25 00:53 Urine Bilirubin Negative (Negative) 07/06/25 00:53 Urine Urobilinogen Negative (Negative) 07/06/25 00:53 Ur Leukocyte Esterase Negative (Negative) 07/06/25 00:53 Urine WBC (Auto) 0-5 /hpf (0-5) 07/06/25 00:53 Urine RBC (Auto) 0-2 /hpf (0-2) 07/06/25 00:53 U Hyaline Cast (Auto) 3-5 /lpf (0-2) H 07/06/25 00:53 U Epithel Cells (Auto) 0-2 /hpf (0-2) 07/06/25 00:53 Urine Bacteria (Auto) None Seen (None Seen) 07/06/25 00:53 Urine Comment 07/06/25 00:53 Impressions Abdomen/Pelvis CT 07/06/25 00:31 EXAM: CT abd pelvis IV con only CLINICAL HISTORY: RUQ pain TECHNIQUE: Multiple contiguous axial images were obtained from the level of diaphragm to the pubis symphysis. This study was acquired after the IV administration of iodinated contrast material, given the patient's indications for the examination. If IV contrast material had not been administered, the likelihood of detecting abnormalities relevant to the patient's condition would have been substantially decreased. Coronal and sagittal reformatted images were generated and reviewed to improve anatomic localization and optimize lesion detection. CT scan was performed according to ALARA (as low as reasonably achievable). COMPARISON: CT, 06/15/2020 06:36:23 ADJUTANT GENERAL FINDINGS: The visualized lung bases are clear. ABDOMEN/PELVIS: The liver is normal in size and attenuation. No focal liver lesions are seen. There is no intra or extrahepatic biliary ductal dilatation. Hepatic vasculature is patent. The gallbladder is unremarkable. Layered hyperdensity seen along neck of gall bladder- advised ultrasound correlation. The spleen and adrenal glands are unremarkable. Fatty infiltration of pancratic head. The kidneys are normal in size and attenuation. There is no hydronephrosis or perinephric fat stranding. No renal calculi or renal masses are identified. A subcentimetric simple cortical cyst at lower interpolar region of right kidney. The ureters are normal in caliber and no ureteral calculi are seen. The bladder is minimaly filled. Post hysterectomy status. No evidence of focal or diffuse bowel wall thickening or evidence of bowel obstruction is seen. Multiple small diverticuli of 2mm seen in sigmoid colon. No inflammatory changes. The appendix is visualized in the right lower quadrant and appears within normal limits. No adenopathy or fluid collections are seen. The aorta is normal in caliber. No aggressive appearing osseous lesions are identified. Anterolisthesis of L4 over L5 present. Small fat containing umbilical hernia, IMPRESSION: 1. No acute intra-abdominal pathology detected. 2. Layered hyperdensity seen along neck of gall bladder- new finding. Advised ultrasound correlation. 3. Fatty infiltration of pancratic head- Interval increase. 4. Uncomplicated sigmoid colon diverticulosis- Stable. 5. Stable Small fat containing umbilical hernia, Electronically signed by Flex Camara 07-06-2025 02:05 AM Gallbladder Ultrasound 07/06/25 02:10 EXAM: US gallbladder CLINICAL HISTORY: Abnormal layering in the neck of the GB on CT TECHNIQUE: Ultrasound examination of the RUQ was performed in real-time. COMPARISON: 07/06/2025 CT and 02/20/2021 US FINDINGS: Limited study due to the patient's habitus. Liver: Liver size: 14 cm. Geographic hyperechogenicity in the liver, measuring 1.4 x 2 x 1 cm, is likely correlated to geographic hypodensity on the CT scan at segment IV and is likely representing focal fatty infiltration. Hepatic vasculature appears normal. Gallbladder: The gallbladder is visualized and appears distended with a bulging anterior border beyond the hepatic border (Image #[id number]). Tiny echogenic foci are noted along the dependent portion of the gallbladder with no definite shadowing detected, which could be tiny stones with small sludge formation. Mildly thickened gallbladder wall, measuring 3.5 mm. A trace of pericholecystic fluid is noted. Inability to assess the Ball's sign due to prior pain medications. Biliary Tree: Common bile duct diameter: 5.2 mm. The common bile duct is within normal limits in caliber and not dilated. No evidence of choledocholithiasis or biliary obstruction. Right Kidney: The right kidney appears normal in size with preserved corticomedullary differentiation. Right lower pole renal cyst measuring 1.3 cm. No evidence of right-sided hydronephrosis. No definite right renal masses. Pancreas: Limited views of the pancreas show increased echogenicity with no definite masses. IMPRESSION: 1. Distended gallbladder with tiny dependent likely gallstones, mildly thickened gallbladder wall with a trace of pericholecystic fluid. Sonographic features of hydrops gallbladder with an early acute cholecystitis. Clinical and lab correlation (CRP) is advised for confirmation. (The gallbladder wall thickening and a trace of pericholecystic fluid are more conspicuous on the ultrasound study than the previous CT scan, and are a new finding since the previous ultrasound scan) 2. The CBD is not dilated. Unchanged. 3. Redemonstration of hepatic likely focal fatty infiltration. Mildly increased in size since the 2020 ultrasound scan. RECOMMENDATIONS: Clinical correlation with symptoms and further evaluation as indicated. Electronically signed by Chris Herrera 07-06-2025 04:34 AM Chest X-Ray 07/06/25 05:15 EXAM: XR chest 1V portable CLINICAL HISTORY: pre-op TECHNIQUE: An X-ray image of the chest is obtained in AP projection. COMPARISON: prior CXR on 06/14/2025 FINDINGS: Pulmonary Parenchyma: No evidence of consolidation, collapse, or focal opacities. No pulmonary nodules are identified. No evidence of pleural effusion or pleural thickening. Heart and Mediastinum: Heart size and shape are normal. No mediastinal widening or masses. No hilar or mediastinal lymphadenopathy. Bony Thorax: Slight deformity of the right proximal humerus (could be due to old fracture). (unchanged). Bony thorax appears intact without fractures or deformities. Soft Tissues: Soft tissues overlying the chest wall are unremarkable. IMPRESSION: Unremarkable chest X-ray. No acute cardiopulmonary abnormalities are identified. No apparent interval changes. Electronically signed by Chris Herrera 07-06-2025 06:04 AM Pending Results Patient Have Any Pending Studies at Discharge: No Discharge Instructions Given to Patient (Per Discharging Provider) PLEASE REFER TO YOUR NEW MEDICATION LIST AND FOLLOW INSTRUCTIONS CAREFULLY. YOUR NEW MEDICATIONS INCLUDE: Augmetin- Antibiotic for gallbladder attack Vancomycin-take alongside Augmentin to prevent C. difficile infection - you also need to continue taking vancomycin 7 days after finishing Augmentin PLEASE CALL YOUR PRIMARY CARE PHYSICIAN OR RETURN TO THE ER IF WITH WORSENING OF SYMPTOMS, INCLUDING severe abdominal pain, especially with radiation to the back, fevers or chills, nausea vomiting, diarrhea, etc. FOLLOW WITH GENERAL SURGEON DR. CHRISTINA CHOUDHARY ON THURSDAY. PLEASE CALL HER OFFICE FOR APPOINTMENT TIME AND PLACE. CONTACT INFORMATION OUTLINED ABOVE. FOLLOW UP WITH PRIMARY CARE PHYSICIAN OUTLINED ABOVE. Total Time Total Time Spent Total Time Spent (In Minutes): 60 minutes
[2025-07-07] MEDS ORDERED: LOSARTAN POTASSIUM 50 MG TAB PO SCH (09:00)
== END 2025-07-06 15:04 | disposition home or self-care (01) ==
LOC: ED 23:35 → INTOOBSV 07-06 05:24 → 2N 07-06 05:24